=== PATIENT | male | born 1945 | race Caucasian/White ===

== ENCOUNTER 2020-04-25 21:27 | Emergency (ER) | payer MEDICARE, SELFPAY ==
--- NOTE | ~2020-04-25 | CT_ITS ---
EXAMINATION: CT abdomen pelvis w con DATE: 04/25/2020 23:48 INDICATION: Abdominal pain and burning sensation TECHNIQUE: Computed tomography (CT) of the abdomen and pelvis was performed with 100 mL Omnipaque-350 intravenous contrast. Automated exposure control and iterative reconstruction technique were employe d. The dose-length product was 1118.48 mGy-cm. COMPARISON: 06/08/2018 FINDINGS: Minimal dependent atelectasis in the lower lobes. Heart size is normal. Atherosclerotic coronary faisal ry calcifications. No pericardial or pleural effusion. There is wall thickening the distal esophagus which could be seen with esophagitis. Gallbladder, spleen, pancreas and bilateral adrenal glands are normal. 4 mm low-attenuation likely hepatic cyst along the gallbladder fossa. Bilateral low-attenuati on renal cysts the largest measuring 2.0 cm in the right kidney. 7 mm intermediate attenuation lesion at the lower pole of the left kidney which appears to have been present with similar increased atten uation on the prior noncontrast CT consistent with a proteinaceous/hemorrhagic cyst. Unchanged athero sclerotic calcification is at the bilateral renal april. No urolithiasis or hydronephrosis. There is m oderate colonic diverticulosis with a sigmoid predominance. There is no adjacent inflammatory change to suggest diverticulitis. The appendix is not visualized. No pericecal inflammatory change to sugge st acute appendicitis. No bowel obstruction. There is calcified atherosclerosis of the aorta and many of the other arteries. No significant interval change in a fusiform infrarenal aortic aneurysm measu ring 3.7 x 3.5 cm in maximal diameter. Prior IVC filter is been removed. Streak artifact in the pelvi s from a right total hip arthroplasty. Bladder is normal. No free intraperitoneal gas or fluid. No pa thologically enlarged abdominal or pelvic lymphadenopathy. Moderate lumbar and mild lower thoracic sp ondylosis. Chronic left-sided L5 pars interarticularis defect. IMPRESSION: 1. No acute intra-abdominal/pelvic process. 2. Wall thickening of the distal esophagus which could be seen with esophagitis. 3. Moderate diverticulosis. 4. 3.7 cm fusiform infrarenal aortic aneurysm. Reviewed, dictated and finalized at location A. IMPRESSION: 1. No acute intra-abdominal/pelvic process. 2. Wall thickening of the distal esophagus which could be seen with esophagitis . 3. Moderate diverticulosis. 4. 3.7 cm fusiform infrarenal aortic aneurysm.
--- NOTE | ~2020-04-25 | XR_ITS ---
EXAMINATION: XR chest 1V portable DATE: 04/25/2020 21:57 INDICATION: Dizziness and upper abdominal pain. TECHNIQUE: frontal view of the chest was obtained. COMPARISON: Chest radiograph dated 06/07/2018 and 05/27/2018 FINDINGS: Mild eventration along the right hemidiaphragm. Lungs are clear with no focal airspace opacities, pul monary edema, pleural effusion or pneumothorax. Heart size is normal. Enlargement of the central pulm onary arteries consistent with pulmonary arterial hypertension. Visualized bones and soft tissues are unremarkable. IMPRESSION: 1. No acute cardiopulmonary disease. Reviewed, dictated and finalized at location A.
[2020-04-25 21:33] VITALS: BP 165/77; PULSE 64; RESP 21; TEMP 37; O2SAT 97
--- NOTE | 2020-04-25 21:40 | ECG_ITS ---
Measurements Intervals Blain Rate: 62 P: 14 GA: 193 QRS: -21 QRSD: 98 T: 15 QT: 413 QTc: 421 Interpretive Statements SINUS RHYTHM VOLTAGE CRITERIA FOR LVH BASELINE ARTIFACT- I, II, AVR BORDERLINE ECG Electronically Signed On 04-26-2020 6:55:53 CDT by Abner Cassidy D.O.
--- NOTE | 2020-04-25 21:50 | ED.GENADULT ---
HPI - General Adult General Chief complaint: Unspecified Stated complaint: abd pain Time Seen by Provider: 04/25/20 21:30 Source: RN notes reviewed History of Present Illness HPI narrative: Patient presents emergency room from home for abdominal pain. Patient states that he was just switched to NovoLog insulin pen from his old insulin and took it for the first time this evening. Patient states he injected in his right lower abdomen and began to eat dinner. He states he then began to experience a burning sensation across his lower abdomen underneath his bellybutton as well as diaphoresis and some pain in his lower back. He states that this time diaphoresis better he still has the burning across his lower abdomen. He denies overlyin rash. He denies fevers, chest pain shortness of breath swelling of lips or tongue nausea vomiting diarrhea or any other symptoms Related Data Home Medications Medication Instructions Recorded Confirmed carboxymethylcellulose sodium 0.5 1 drop EACH EYE BID 08/22/19 % eye drops in a dropperette ferrous sulfate 325 mg (65 mg 325 mg PO BID 08/22/19 iron) tablet gabapentin 300 mg capsule 300 mg PO DAILY 08/22/19 hydroxyzine HCl 10 mg tablet 10 mg PO .4 TIMES A DAY PRN tablet 08/22/19 omega-3 fatty acids 1,000 mg 1,000 mg PO DAILY 08/22/19 capsule rosuvastatin 40 mg tablet 40 mg PO DAILY 08/22/19 vitamin B complex 1 tablet PO DAILY 08/22/19 fluocinonide 0.05 % topical cream 1 applic TOPICAL BID 12/26/19 alogliptin 6.25 mg tablet See Rx Instructions PO DAILY 03/22/20 pantoprazole 40 mg tablet,delayed 40 mg PO QAM 03/22/20 release insulin glargine 100 unit/mL 40 unit SUB-Q DAILY ml 03/26/20 subcutaneous solution Allergies Allergy/AdvReac Type Severity Reaction Status Date / Time oxycodone Allergy Unknown Vomiting Verified 04/25/20 21:36 Review of Systems Review of Systems: Narrative: Gen.: Denies fevers or chills, reports diaphoresis Eyes: Denies eye pain or visual change ENT: Denies congestion Respiratory: Denies shortness of breath or cough CV: Denies chest pain or palpitations GI: Reports abdominal pain denies nausea vomiting or diarrhea denies burning, urgency, frequency or hematuria Musculoskeletal: Denies back pain or muscle pain Neuro: Denies numbness, tingling, weakness or focal weakness Skin: Denies rash Endocrine: Reports diabetes mellitus Except as documented, all other systems reviewed and negative [facility] Past Medical History Medical History (Updated 04/26/20 @ 02:42 by Eugene Tariq DO) Anemia in chronic kidney disease Essential hypertension PE (pulmonary thromboembolism) Type 2 diabetes mellitus with diabetic peripheral angiopathy without gangrene Social History Social History Smoking status: Never smoker Alcohol intake: never Exam Narrative: Exam Narrative: APPEARANCE: No acute distress, nontoxic, resting in bed EYES: EOMI HEENT: Normocephalic, atraumatic, OMM RESPIRATORY: No respiratory distress Clear to auscultation bilaterally with no rhonchi wheezing or rales. CARDIOVASCULAR: Regular rate and rhythm without murmurs rubs or gallops. ABDOMINAL: Soft, nontender, nondistended, no rebound or guarding MUSCULOSKELETAl: Moves all extremities. No clubbing, cyanosis or edema. NEURO: Awake and alert. Following commands, speech normal, no focal deficits SKIN:: Warm, dry. No rashes lesions or abrasions PSYCHIATRIC: Normal affect/mood, Course Course Emergency Course: Patient notes minimal change with Tylenol and GI cocktail CT obtained still no rash over abdomen Bladder scan obtained shows no urinary retention questionable minimal UTI will treat Patient states that they are feeling much better at this time. States abdominal pain has improved repeat abdominal exam shows the patient's abdomen to be soft with no surgical abdomen present discussed with patient results of workup and diagnosis.
[2020-04-25 21:55] LABS: Basophils Percent Auto 0.2 % (0.2-1.2); Eosinophils Absolute Auto 0.2 K/mm3 (0-0.3); Hematocrit 37.1 % (42.0-52.0); Hemoglobin 12.3 g/dL (14.0-18.0); Immature Granulocyte Absolute 0.04 K/mm3 (0.00-0.031); Immature Granulocyte Percent A 0.4 % (0-0.5); Lymphocytes Absolute Auto 2.12 K/mm3 (0.9-3.2); Lymphocytes Percent Auto 21.2 % (18.3-44.2); Mean Corpuscular HGB Conc 33.2 g/dl (32-36); Mean Corpuscular Hemoglobin 28.9 pg (26-34); Mean Corpuscular Volume 87.3 fl (80-100); Monocytes Absolute Auto 0.9 K/mm3 (0.1-0.6); Monocytes Percent Auto 8.5 % (2.6-8.5); Neutrophils Absolute Auto 6.8 K/mm3 (1.3-6.7); Neutrophils Percent Auto 67.7 % (45.5-73.1); Platelet Count Result 186 k/mm3 (150-375); Red Blood Count 4.25 M/mm3 (4.6-6.20); Red Cell Distribution Width 14.4 % (11.5-14.5)
[2020-04-25 22:05] LABS: Prothrombin Time 13.1 Seconds (11.1-14.7)
[2020-04-25 22:06] LABS: Partial Thromboplastin Time 36.5 SECONDS (22.3-36.8)
[2020-04-25 22:07] LABS: Alanine Aminotransferase 20 U/L (4-50); Albumin Level 4.2 g/dL (3.5-5.1); Alkaline Phosphatase 77 U/L (38-126); Anion Gap 9 mmol/L (8-16); Aspartate Amino Transferase 22 U/L (17-59); Bilirubin,Total 0.4 mg/dL (0.2-1.3); Blood Urea Nitrogen 28 mg/dL (9-20); Calcium 8.6 mg/dL (8.4-10.2); Carbon Dioxide 23 mmol/L (22-30); Chloride 105 mmol/L (98-107); Estimated CRCL calculation 40 ml/min; Estimated Glomerular Filt Rate 42; Glucose 229 mg/dL (75-110); Lipase 82 U/L (23-300); Potassium 4.4 mmol/L (3.4-5.0); Sodium 137 mmol/L (137-145)
[2020-04-25 22:17] LABS: Add Urine Microscopic? YES; Appearance Urine Clear (Clear); Bilirubin Urine Negative (Negative); Blood Urine Negative (Negative); Color Urine Yellow (Yellow); Glucose Urine UA 2+ mg/dL (Negative); Ketones Urine Negative (Negative); Leukocyte Esterase Ur Trace LEU/UL (Negative); Mucus Urine Rare /lpf; Nitrate Urine Negative (Negative); Protein Urine Negative (Negative); RBC Urine 0-2 /hpf (0-2); Specific Grav Ur 1.019 (1.001-1.035); Squamous Epithelial Cell Urine Occasional /hpf (Few); Urobilinogen Urine Negative mg/dL (<2.0)
[2020-04-25 22:19] LABS: Troponin I < 0.012 ng/mL (0.000-0.034)
[2020-04-26 00:42] VITALS: BP 178/84; PULSE 65; RESP 16; O2SAT 99
[2020-04-26] MEDS: MORPHINE SULFATE 2 MG/ML INJ IV PUSH (01:26)
[2020-04-26 01:45] LABS: Lactic Acid Reflex 1.1 mmol/L (0.7-2.1)
[2020-04-26 01:57] LABS: Troponin I < 0.012 ng/mL (0.000-0.034)
[2020-04-26 02:37] VITALS: BP 167/84; PULSE 65; RESP 20; O2SAT 98
[2020-04-26] MEDS: CEPHALEXIN 500 MG CAPSULE PO (02:55)
== END 2020-04-26 02:56 | disposition home or self-care (01) ==
PROVIDERS: Emergency Provider Emergency Medicine; PCP Internal Medicine
DX: R10.31 Right lower quadrant pain (principal); N39.0 Urinary tract infection, site not specified; E11.22 Type 2 diabetes mellitus with diabetic chronic kidney disease; I12.9 Hypertensive chronic kidney disease with stage 1 through stage 4 chronic kidney disease, or unspecified chronic kidney disease; N18.9 Chronic kidney disease, unspecified; E11.51 Type 2 diabetes mellitus with diabetic peripheral angiopathy without gangrene; D63.1 Anemia in chronic kidney disease; Z79.4 Long term (current) use of insulin; Z86.711 Personal history of pulmonary embolism; R94.31 Abnormal electrocardiogram [ECG] [EKG]
CPT/HCPCS: 36415; 71045; 74177; 80053; 81001; 83605; 83690; 84484; 85025; 85610; 85730; 87086; 87088; 93005; 96365; 96375; 99284; A9270; J0131; J2270; Q9967

== ENCOUNTER 2020-04-27 07:12 | Outpatient (NON) | payer MEDICARE, SELFPAY ==
[2020-04-28 00:04] LABS: SARS-CoV-2 RNA PCR Negative
== END 2020-04-27 07:13 ==
PROVIDERS: PCP Internal Medicine; Visit Provider Internal Medicine
DX: Z20.828 Contact with and (suspected) exposure to other viral communicable diseases (principal); R68.89 Other general symptoms and signs
CPT/HCPCS: 87635; C9803; U0003

== ENCOUNTER 2020-05-02 10:36 | Outpatient (CLI) | payer MEDICARE, SELFPAY ==
--- NOTE | ~2020-05-02 | XR_ITS ---
EXAMINATION: XR chest 2V DATE: 05/02/2020 10:53 INDICATION: Shortness of breath. TECHNIQUE: Frontal and lateral views of the chest were obtained. COMPARISON: Chest single view 04/25/2020, CT abdomen and pelvis 04/25/2020 FINDINGS: There is eventration of anterior right hemidiaphragm. There is mild atelectasis at right ming ng base. No pneumonia, pleural effusion, or pneumothorax. The heart size is normal. IMPRESSION: 1. Mild atelectasis at right lung base. Reviewed, dictated and finalized at location B.
[2020-05-02 11:33] LABS: Basophils Percent Auto 0.3 % (0.2-1.2); Eosinophils Absolute Auto 0.1 K/mm3 (0-0.3); Eosinophils Percent Auto 0.8 % (0-4.4); Hematocrit 36.3 % (42.0-52.0); Hemoglobin 12.3 g/dL (14.0-18.0); Immature Granulocyte Absolute 0.44 K/mm3 (0.00-0.031); Immature Granulocyte Percent A 3.3 % (0-0.5); Lymphocytes Absolute Auto 1.55 K/mm3 (0.9-3.2); Lymphocytes Percent Auto 11.7 % (18.3-44.2); Mean Corpuscular HGB Conc 33.9 g/dl (32-36); Mean Corpuscular Hemoglobin 28.7 pg (26-34); Mean Corpuscular Volume 84.6 fl (80-100); Mean Platelet Volume 11.1 fl (7.4-10.4); Monocytes Absolute Auto 1.3 K/mm3 (0.1-0.6); Monocytes Percent Auto 9.5 % (2.6-8.5); Neutrophils Absolute Auto 9.8 K/mm3 (1.3-6.7); Neutrophils Percent Auto 74.4 % (45.5-73.1); Platelet Count Result 188 k/mm3 (150-375); Red Blood Count 4.29 M/mm3 (4.6-6.20); Red Cell Distribution Width 15.2 % (11.5-14.5); White Blood Count 13.2 K/mm3 (4.5-10.0)
[2020-05-02 11:37] LABS: Add Urine Microscopic? YES; Appearance Urine Clear (Clear); Bilirubin Urine Negative (Negative); Blood Urine 2+ (Negative); Color Urine Yellow (Yellow); Glucose Urine UA 1+ mg/dL (Negative); Ketones Urine Negative (Negative); Leukocyte Esterase Ur 1+ LEU/UL (NEGATIVE); Nitrate Urine Negative (Negative); Protein Urine 2+ mg/dL (Negative); Specific Grav Ur 1.027 (1.001-1.035); Squamous Epithelial Cell Urine Few /hpf (Few); WBC Urine 21-30 /hpf (0-3)
[2020-05-02 11:45] LABS: Alanine Aminotransferase 198 U/L (4-50); Alkaline Phosphatase 350 U/L (38-126); Anion Gap 10 mmol/L (8-16); Aspartate Amino Transferase 102 U/L (17-59); Blood Urea Nitrogen 32 mg/dL (9-20); Calcium 9.1 mg/dL (8.4-10.2); Carbon Dioxide 24 mmol/L (22-30); Chloride 101 mmol/L (98-107); Estimated Glomerular Filt Rate 33; Glucose 211 mg/dL (75-110); Potassium 4.1 mmol/L (3.4-5.0); Sodium 135 mmol/L (137-145)
== END 2020-05-02 10:37 | disposition home or self-care (01) ==
PROVIDERS: PCP Internal Medicine; Visit Provider Internal Medicine
DX: R53.1 Weakness (principal); R06.02 Shortness of breath; R91.8 Other nonspecific abnormal finding of lung field
CPT/HCPCS: 36415; 71046; 80053; 81001; 85025

== ENCOUNTER 2020-05-02 14:19 | Inpatient (IN) | payer MEDICARE, SELFPAY ==
--- NOTE | ~2020-05-02 | CT_ITS ---
EXAMINATION: CT guide absc cath placement DATE: 05/03/2020 16:43 INDICATION: Liver abscess TECHNIQUE: The procedure including the risks and benefits was discussed with the patient. Risks discu ssed included bleeding and infection. The patient understood the risks and benefits and agreed to pro ceed. The patient was confirmed to be receiving appropriate antibiotic coverage. The skin overlying the right upper quadrant of the abdomen was prepped and draped in usual sterile fashion. Anesthetic was administered with 1% lidocaine subcutaneously. Patient also was given 50 mcg fentanyl and 1 mg Ve rsed for conscious sedation. Attention was first turned to the hepatic abscess in segment IVb of the liver. 18-gauge needle was advanced into the fluid pocket utilizing CT guidance. The inner stylette w as removed and there was spontaneous reflux of serosanguineous fluid. A wire was advanced through the needle with position confirmed by CT. Utilizing Seldinger technique the tract was serially dilated t o 8 Uzbek and an 8.5 Uzbek catheter was inserted and the loop formed with positioning confirmed by CT. The wire was removed. At this point attempt was made to aspirate fluid from the collection howeve r this was unsuccessful likely due to interval decompression of the abscess cavity occurring during t he tract dilation and subsequent imaging with significant amount of fluid noted soaking the drape at the outlet of the catheter. The catheter was then attached to suction drainage. Attention was then tu rned to the gallbladder. Additional anesthetic was administered with 1% lidocaine subcutaneously. An 18-gauge needle was advanced into the call bladder via transhepatic approach utilizing CT guidance. A gain utilizing Seldinger technique the wire was advanced through the needle, the tract serially dilat ed to 8 Uzbek and an 8.5 Uzbek drainage catheter was placed. The loop was formed with positioning c onfirmed by CT. 10 mL of viscous turbid yellow fluid was aspirated and sent to the lab for Gram stain and cultures. Both catheters were stitched to the skin with suture, antibiotic ointment and sterile dressings applied. There were no immediate complications. The dose-length product was 397.45 mGy-cm. FINDINGS: CT images demonstrate the more medial drainage catheter within the hepatic abscess in segme nt IVb of the liver and the more lateral drainage catheter within the gallbladder. 10 mL fluid was as pirated from the gallbladder for testing. IMPRESSION: 1. Successful CT-guided left hepatic lobe abscess drainage catheter placement. 2. Successful CT-guided cholecystostomy tube placement. 3. 10 mL fluid from the gallbladder was sent for aerobic, anaerobic and fungal cultures. 3. The catheter will be managed by Dr. Arizmendi. A catheter cholangiogram may be performed not less than 48 hours after tube placement if clinically indicated to assess cystic duct patency. If cholecystect andrés is not eventually performed and the infectious episode has resolved, the tube may be removed over a guidewire, preferably not less than 3 weeks after placement to allow time for a mature catheter tr act to form to prevent bile leakage and peritonitis. Reviewed, dictated and finalized at location A. IMPRESSION: 1. Successful CT-guided left hepatic lobe abscess drainage catheter placement. 2. Successful CT-guided cholecystostomy tube placement. 3. 10 mL fluid from the gallbladder was sent for aerobic, anaerobic and fungal cultures. 3. The catheter will be managed by Dr. Arizmendi. A catheter cholangiogram may be p erformed not less than 48 hours after tube placement if clinically indicated to assess cystic duct patency. If cholecystectomy is not eventually performed and the infectious episode has resolved, the tube may be removed over
--- NOTE | ~2020-05-02 | CT_ITS ---
EXAMINATION: CT abdomen pelvis wo con DATE: 05/07/2020 12:15 INDICATION: Liver abscess TECHNIQUE: Computed tomography (CT) of the abdomen and pelvis was performed without intravenous contr ast. Automated exposure control and iterative reconstruction technique were employed. The dose-length product was 863.87 mGy-cm. COMPARISON: CT dated 05/02/2020 FINDINGS: Tiny right pleural effusion. Dependent atelectasis in the bilateral lower lobes. Small calcified righ t lower lobe nodule consistent with old granulomatous disease. Heart size is normal. Atherosclerotic coronary artery calcifications and likely coronary artery stenting. No pericardial effusion. Persiste nt wall thickening in the distal esophagus suggesting esophagitis. Percutaneous cholecystostomy tube with loop formed within the decompressed gallbladder. There is a se cond percutaneous hepatic abscess drain extending into a gas and fluid-filled abscess cavity which is decreased in size from 4.0 x 3.6 x 3.2 cm to currently measuring 3.2 x 2.8 x 2.4 cm. Spleen, pancrea s and bilateral adrenal glands are normal. Bilateral renal cysts, the largest on the right measuring 1.8 cm. There is calcified atherosclerosis of the aorta and many of the other arteries including athe rosclerotic calcifications at the bilateral renal april. Fusiform infrarenal abdominal aortic aneurysm measuring up to 3.7 cm in maximal diameter. There is prominent sigmoid and descending colon predomin ant diverticulosis without adjacent inflammatory change to suggest diverticulitis. Small bowel is nor mal. The appendix is not visualized. No pericecal inflammatory change to suggest acute appendicitis. Bladder is normal. Streak artifact in the pelvis related to a right total hip arthroplasty. No free i ntraperitoneal gas or fluid. No pathologically enlarged abdominal or pelvic lymphadenopathy. Moderate lumbar spondylosis. IMPRESSION: 1. Decrease in size of a now 3.2 x 2.8 x 2.4 similar gas and fluid-filled abscess in the left hepatic lobe post percutaneous abscess drain placement. 2. Percutaneous cholecystostomy tube in expected position within the decompressed gallbladder. 3. Tiny right pleural effusion. 4. Mild esophageal wall thickening consistent with esophagitis. 5. 3.7 cm infrarenal abdominal aortic aneurysm. Reviewed, dictated and finalized at location B. IMPRESSION: 1. Decrease in size of a now 3.2 x 2.8 x 2.4 similar gas and fluid-filled absce ss in the left hepatic lobe post percutaneous abscess drain placement. 2. Percutaneous cholecystostomy tube in expected position within the decompress ed gallbladder. 3. Tiny right pleural effusion. 4. Mild esophageal wall thickening consistent with esophagitis. 5. 3.7 cm infrarenal abdominal aortic aneurysm.
--- NOTE | ~2020-05-02 | US_ITS ---
EXAMINATION: US right upper quadrant DATE: 05/02/2020 16:01 INDICATION: Elevated liver enzymes and elevated alkaline phosphatase. TECHNIQUE: Multiple grayscale and Doppler ultrasound images of the abdomen were obtained. COMPARISON: CT dated 04/25/2020 FINDINGS: The pancreatic head and body are normal in appearance. The pancreatic tail is not visualized. The vi sualized proximal inferior vena cava is normal. Proximal to mid abdominal aorta is normal in caliber. Liver has normal echogenicity and contour, with a smooth surface. There is a 3.4 x 3.2 x 3.1 cm comp liliana cystic lesion in segment IVb of the liver which is without correlate on the recent contrast enhan chidi CT from one week prior to raise concern for hepatic abscess. No intrahepatic biliary duct dilatio n suspected. Portal venous flow was seen in the hepatopetal, normal direction and has normal Doppler waveform. 8 mm nonshadowing echogenic density at the neck of the gallbladder which when correlated wi th prior CT most likely represents a fold. The gallbladder otherwise normal in appearance There is no cholelithiasis. The common bile duct measures 6 mm, which is normal. Sonographic Hernandez sign was rep orted as negative by the milking machine operator. IMPRESSION: 1. New 3.4 cm complex cystic lesion in segment IVb of the liver which is new since the contrast enhan chidi CT one week prior which raises concern for hepatic abscess. Consider repeat contrast-enhanced CT. Line 2. 8 mm echogenic density at the neck of the gallbladder and favor a fold in the wall over polyp. Reviewed, dictated and finalized at location A. IMPRESSION: 1. New 3.4 cm complex cystic lesion in segment IVb of the liver which is new si nce the contrast enhanced CT one week prior which raises concern for hepatic ab scess. Consider repeat contrast-enhanced CT. Line 2. 8 mm echogenic density at the neck of the gallbladder and favor a fold in th e wall over polyp.
--- NOTE | ~2020-05-02 | CT_ITS ---
EXAMINATION: CT abdomen pelvis w con DATE: 05/02/2020 17:57 INDICATION: Elevated liver enzymes. Right-sided abdomen pain. TECHNIQUE: Computed tomography (CT) of the abdomen and pelvis was performed with 100 cc Omnipaque 350 intravenous contrast. The dose-length product was 1081.89 mGy-cm. Automated exposure control and ite rative reconstruction technique were employed. COMPARISON: CT dated 04/25/2020. FINDINGS: Lung bases are unremarkable. Heart size normal. No significant pleural or pericardial effus ion. There is thickening of the distal esophagus, compatible with esophagitis. Heart size is normal. Stable fusiform 3.7 cm infrarenal abdominal aortic aneurysm. Interval development of irregular shaped fluid collection left hepatic lobe measuring 4 x 3.6 x 3 cm, new since prior study. There is a secon d small cystic structure in the right hepatic lobe just lateral to the gallbladder, likely a cyst. Th e spleen, pancreas, adrenal glands are unremarkable. There are several bilateral renal cysts. There i s a right total hip arthroplasty. Moderate lumbar spondylosis. IMPRESSION: 1. New irregular shaped fluid collection of the left hepatic lobe just medial and superior to the gal lbladder measuring 4 x 3.6 x 3 cm, likely hepatic abscess. 2: Abnormal thickening of the distal esophagus, compatible with esophagitis. 3: Stable fusiform 3.7 cm infrarenal abdominal aortic aneurysm. Reviewed, dictated and finalized at location A. IMPRESSION: 1. New irregular shaped fluid collection of the left hepatic lobe just medial a nd superior to the gallbladder measuring 4 x 3.6 x 3 cm, likely hepatic abscess . 2: Abnormal thickening of the distal esophagus, compatible with esophagitis. 3: Stable fusiform 3.7 cm infrarenal abdominal aortic aneurysm.
--- NOTE | ~2020-05-02 | CT_ITS ---
EXAMINATION: CT brain wo con DATE: 05/02/2020 15:02 INDICATION: Headache. TECHNIQUE: Computed tomography (CT) of the head was performed without intravenous contrast. The mA wa s adjusted according to patient size. Iterative reconstruction technique was employed. The dose-lengt h product was 681.00 mGy-cm. COMPARISON: None FINDINGS: There is no intracranial hemorrhage, acute infarction, or abnormal intracranial mass lesion . There is an old lacunar infarct in the right basal ganglia. The ventricles are normal in size. Ther e is mild mucosal thickening in the paranasal sinuses. There are likely changes of ocular lens replac ement surgeries. There is a trace left mastoid effusion. IMPRESSION: 1. Old lacunar infarct in the right basal ganglia. Reviewed, dictated and finalized at location B.
--- NOTE | ~2020-05-02 | US_ITS ---
EXAMINATION: US percutaneous drain w cath DATE: 05/03/2020 14:18 INDICATION: Liver abscess TECHNIQUE: Multiple grayscale and Doppler ultrasound images of the liver were obtained for planned ab scess drainage catheter placement. The procedure including the risks and benefits was discussed with the patient. Risks discussed included bleeding including hemorrhage and infection. Oral and written c onsent were obtained. The patient was confirmed to be receiving appropriate antibiotic coverage. The skin overlying the liver was prepped and draped in usual sterile fashion. Anesthetic was administer ed with 1% lidocaine subcutaneously. An 8.5 Fr catheter was inserted by trocar technique into the alford bcutaneous tissues of the overlying anterior abdominal wall. Prior to transgressing the peritoneum th e visualization of the catheter deemed suboptimal primarily due to effects of the subcostal margin wh ich is in close proximity to the path of the catheter. Furthermore the ability of the patient to main tain adequate breath holds to bring the abscess into an acceptable position for drainage catheter khai cement was deemed inadequate. Therefore the procedure was halted and the drainage catheter and trocar were removed. There was no hemorrhage post removal of the catheter and a sterile bandage was applied . There were no immediate complications. FINDINGS/IMPRESSION: 3.9 x 3.3 x 3.2 cm hepatic abscess. Planned ultrasound-guided drainage catheter placement was cancele d prior to transgressing the peritoneum or liver capsule and it was elected to proceed with planned c atheter placement utilizing CT guidance. Reviewed, dictated and finalized at location A.
[2020-05-02 14:37] VITALS: BP 133/63; PULSE 95; RESP 18; TEMP 37.1; O2SAT 97
--- NOTE | 2020-05-02 14:44 | ED.GENADULT ---
HPI - General Adult General Chief complaint: Recheck/Abnormal Lab/Rx Stated complaint: donovan/liver test problems Time Seen by Provider: 05/02/20 14:33 Source: patient History of Present Illness HPI narrative: 75-year-old male presents to emergency department for multiple complaints. Patient reports intermittent, right-sided abdominal pain for the past few days. He has not taken anything for the abdominal pain so far. Additionally, he states that he has not been feeling well for the past few weeks. He has had a headache for the past 2 weeks. States he has never had a headache like this in the past before. No chest pain or shortness of breath. No fever or chills. No nausea or vomiting. Patient states he had a bowel movement today, which was normal. No urinary symptoms. Related Data Home Medications Medication Instructions Recorded Confirmed carboxymethylcellulose sodium 0.5 1 drop EACH EYE BID 08/22/19 05/02/20 % eye drops in a dropperette ferrous sulfate 325 mg (65 mg 325 mg PO DAILY 08/22/19 05/02/20 iron) tablet gabapentin 300 mg capsule 300 mg PO DAILY 08/22/19 05/02/20 hydroxyzine HCl 10 mg tablet 10 mg PO QID PRN tablet 08/22/19 05/02/20 omega-3 fatty acids 1,000 mg 1,000 mg PO DAILY 08/22/19 05/02/20 capsule rosuvastatin 40 mg tablet 40 mg PO DAILY 08/22/19 05/02/20 vitamin B complex 1 tablet PO DAILY 08/22/19 05/02/20 alogliptin 6.25 mg tablet See Rx Instructions PO DAILY 03/22/20 05/02/20 insulin glargine 100 unit/mL 40 unit SUB-Q DAILY ml 03/26/20 05/02/20 subcutaneous solution Allergies Allergy/AdvReac Type Severity Reaction Status Date / Time oxycodone Allergy Unknown Vomiting Verified 05/02/20 14:42 Review of Systems Review of Systems: Narrative: CONSTITUTIONAL: Denies fever, chills, or sweats. EYES: Denies visual changes, redness, or discharge. ENT: Denies rhinorrhea, congestion, sore throat, or otalgia. CARDIOVASCULAR: Denies chest pain, palpitations, or edema. RESPIRATORY: Denies cough or dyspnea. GASTROINTESTINAL: Reports right-sided abdominal pain. No nausea or vomiting. GENITOURINARY: Denies dysuria or hematuria. SKIN: Denies rash or itching. MUSCULOSKELETAL: Denies back pain, joint pain, or myalgia. NEUROLOGIC: Reports headache, no numbness, no dizziness, no weakness. PSYCHIATRIC: Denies anxiety or depression. All systems reviewed & are unremarkable except as noted in HPI and below (ROS) PMFSH Past Medical History Medical History Anemia in chronic kidney disease Essential hypertension PE (pulmonary thromboembolism) Type 2 diabetes mellitus with diabetic peripheral angiopathy without gangrene Social History Social History Smoking status: Never smoker Second hand tobacco smoke exposure: No Alcohol intake: never Substance use: never Gender identity (if verbalized by the patient): Male Spiritual care concerns: No Exam Narrative: Exam Narrative: GENERAL: Well-appearing, well-nourished, and in no acute distress. HEAD: Normocephalic, atraumatic. EYES: PERRLA and EOMI. ENT: Nares clear, no rhinorrhea or epistaxis. Mucous membranes moist. NECK: Supple. CHEST: Clear to auscultation. No respiratory distress. HEART: Regular rate and rhythm. No murmur heard. Normal peripheral pulses. ABDOMEN: Soft, nontender, nondistended, normal active bowel sounds. EXTREMITIES: Normal range of motion. No edema. SKIN: Warm, dry, no rash. NEURO: No focal deficits. Alert and oriented x3. PSYCH: Normal mood and affect. Course Reevaluation(s) Reevaluation #1: [id number] - re-evaluated pt, DONOVAN improved 1819 - discussed case with NANDINI Hernandez for Dr. Hyde, accepts admission 183 - discussed case with Dr. Arizmendi, accepts consult Vital Signs Vital signs: Vital Signs Temperature 37.1 C 05/02/20 14:37 Pulse Rate 95 05/02/20 14:37 Respiratory Rate 18 05/02/20 14:37 Blood Pressure
[2020-05-02 15:02] LABS: Add Urine Microscopic? YES; Appearance Urine Clear (Clear); Bilirubin Urine Negative (Negative); Blood Urine 2+ (Negative); Color Urine Yellow (Yellow); Glucose Urine UA 1+ mg/dL (Negative); Ketones Urine Negative (Negative); Leukocyte Esterase Ur 2+ LEU/UL (Negative); Mucus Urine Rare /lpf; Nitrate Urine Negative (Negative); Protein Urine 2+ mg/dL (Negative); Specific Grav Ur 1.024 (1.001-1.035); Squamous Epithelial Cell Urine Occasional /hpf (Few); WBC Urine 21-30 /hpf
[2020-05-02 15:08] LABS: Acetaminophen < 10 ug/mL (10-30); Ethanol < 10 mg/dL (<10); Lipase 106 U/L (23-300); Salicylate < 1.0 mg/dL (2-20)
[2020-05-02] MEDS: PROCHLORPERAZINE EDISYLATE 10 MG/2 ML VIAL 5 MG IV PUSH (15:22)
[2020-05-02] MEDS: KETOROLAC 15 MG/ML VIAL (*BKC) IV PUSH (15:22)
[2020-05-02 16:07] VITALS: BP 124/75; PULSE 77; RESP 18; O2SAT 96
[2020-05-02 17:48] LABS: Estimated CRCL calculation 32 ml/min; Estimated Glomerular Filt Rate 33
[2020-05-02 18:04] LABS: Glucose Point of Care 200 (65-105)
[2020-05-02 19:04] VITALS: BP 129/77; PULSE 76; RESP 26; O2SAT 96
[2020-05-02 20:17] VITALS: BP 118/66; PULSE 74; RESP 22; O2SAT 97
[2020-05-02 20:41] VITALS: BP 133/87; PULSE 96; RESP 20; TEMP 37.1; O2SAT 100; BMI 28.8
[2020-05-02 20:51] VITALS: BP 131/72; PULSE 83; RESP 16; TEMP 36.7; O2SAT 97
--- NOTE | 2020-05-02 21:40 | ADMGEN ---
This patient, Chandan Shetty, was admitted to Medical Room 341-01. Patient/family oriented to hospital policies and general routines including ID bracelet, bed and alarms, visiting hours, pain management, procedures, bathroom and other care routines, personal items, smoking policy, room service/diet, and visiting hours. Valuables list has been completed. Information on how to activate the Rapid Response Team has been discussed. Patient/Family are encouraged to report perceived risks to care and to ask questions if they do not understand what they are told or what they should do.
[2020-05-02 22:01] LABS: Glucose Point of Care 155 (65-105)
--- NOTE | 2020-05-02 23:05 | PC.NURSE ---
During admission pt stated nursing staff should be able to pull his information from prior visits and what he had told ED staff earlier, pt stopped answering admission questions, and rolled on his side away from staff during questioning. Admission history was recalled from prior visits following pt refusal to talk.
[2020-05-03] VITALS (18 sets, daily range): BP systolic 110–139; BP diastolic 50–78; PULSE 70–109; RESP 16–26; TEMP 37.1–37.2; O2SAT 94–100
--- NOTE | 2020-05-03 00:52 | PM.IMHP ---
H&P: HPI History of Present Illness Date/Time: 05/03/20 00:52 Chief complaint: Hepatic Abscess Narrative: Chandan Shetty is a 75 year old male who was complaining of having abdominal pain on and off for couple weeks. It was intermittent to his right upper quadrant. He also had a headache with this. He was also nauseated. He denies having had a recent injury. She has had no fever chills. CT of the abdomen pelvis live is normal other she fluid collection a left hepatic lobe just medial and superior to the gallbladder measuring 4 x 3.6 Melissa was likely hepatic abscess. Abnormal like his drug of the distal esophagitis. Stable fusiform 3.7 cm and infrarenal abdominal aortic aneurysm. He was started on Zosyn surgery is consulted. In order has been placed for Interventional Radiology. Patient was given Toradol and Compazine in the emergency room. I spent approximately 45 minutes with the patient. Date of service is 05/02/2020 Review of Systems Review of Systems: All systems reviewed & are unremarkable except as noted in HPI and below Constitutional: Constitutional: Reports as per HPI and Reports no additional constitutional complaints Eyes: Eyes: Reports as per HPI and Reports no additional eye complaints ENT: Reports system reviewed and no additional complaints, except as documented and Reports Normal hearing present Cardiovascular: Cardiovascular: Reports no additional cardiovascular complaints Respiratory: Respiratory: Reports no additional respiratory complaints and Reports no additional respiratory complaints Gastrointestinal: Gastrointestinal: Reports as per HPI and Reports no additional gastrointestinal complaints Musculoskeletal: Musculoskeletal: Reports no additional musculoskeletal complaints Integumentary/Breasts: Skin/Breast: Reports system reviewed and no additional complaints, except as docu and Reports as per HPI Neurologic: Reports system reviewed and no additional complaints, except as documented, Reports as per HPI and Reports Normal hearing present Psychiatric: Psychiatric: Reports no additional psychiatric complaints and Reports as per HPI Endocrine: Endocrine: Reports no additional endocrine complaints Hematologic/Lymphatic: Hematologic/Lymphatic: Reports no additional hematologic/lymphatic complaints Allergic/Immunologic: Allergic/Immunologic: Reports no additional allergic/immunologic complaints [facility] Past Medical History Medical History (Updated 05/03/20 @ 01:18 by Mary Duarte NP) Amputation toe 2nd toe on the right Anemia in chronic kidney disease Chronic anemia Dialysis patient Temporary DM2 (diabetes mellitus, type 2) DVT (deep venous thrombosis) Essential hypertension Generalized anxiety disorder PE (pulmonary thromboembolism) Pulmonary emboli Bilaterally S/P ORIF (open reduction internal fixation) fracture Right hip Type 2 diabetes mellitus with diabetic peripheral angiopathy without gangrene Surgical History Surgical History (Updated 05/03/20 @ 01:08 by Mary Duarte NP) H/O cataract extraction Bilaterally History of appendectomy History of tonsillectomy S/P IVC filter Which was removed due to complications and infection. Family History Family History (Updated 05/03/20 @ 01:09 by Mary Duarte NP) Mother Natural with unknown cause Father Natural with unknown cause Social History Social History (Updated 05/03/20 @ 01:11 by Mary Duarte NP) Social History: The patient lives with his . He has 2 step children. He retired from the [employer]. He served in [employer]. He has not had any biological children. 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 He is a full code. Lifelong nonsmoker. Does not use any alcohol or drugs. Smoking status: Never smoker Second hand tobacco smoke exposure: No Alcohol intake: never Substance use: never Gender identity (if verbalized by the patient): Male Spiritual car
[2020-05-03 02:34] LABS: Hemoglobin A1C 8.1 % (<5.7)
[2020-05-03 08:07] LABS: Glucose Point of Care 182 (65-105)
[2020-05-03 08:16] LABS: Mean Platelet Volume 10.8 fl (7.4-10.4); Platelet Count Result 212 k/mm3 (150-375)
[2020-05-03 08:25] LABS: INR 1.1; Prothrombin Time 13.4 Seconds (11.1-14.7)
[2020-05-03 08:26] LABS: Partial Thromboplastin Time 33.4 SECONDS (22.3-36.8)
[2020-05-03 08:27] LABS: Potassium 4.1 mmol/L (3.4-5.0)
[2020-05-03 08:35] LABS: Alanine Aminotransferase 132 U/L (4-50); Albumin Level 3.4 g/dL (3.5-5.1); Alkaline Phosphatase 267 U/L (38-126); Anion Gap 10 mmol/L (8-16); Aspartate Amino Transferase 51 U/L (17-59); Bilirubin,Total 1.3 mg/dL (0.2-1.3); Blood Urea Nitrogen 33 mg/dL (9-20); Calcium 8.4 mg/dL (8.4-10.2); Carbon Dioxide 19 mmol/L (22-30); Chloride 104 mmol/L (98-107); Estimated CRCL calculation 30 ml/min; Estimated Glomerular Filt Rate 31; Glucose 193 mg/dL (75-110); Sodium 133 mmol/L (137-145)
--- NOTE | 2020-05-03 08:50 | PM.CNGS ---
Assessment and Plan Assessment and plan (1) Abscess of liver: Code(s): K75.0 - Abscess of liver Status: Acute Assessment and Plan: pt setup for IR perc drainage today, cont abx, await cx results (2) DM2 (diabetes mellitus, type 2): Code(s): E11.9 - Type 2 diabetes mellitus without complications Status: Chronic Assessment and Plan: mgmt per primary team (3) Essential hypertension: Code(s): I10 - Essential (primary) hypertension Status: Chronic Assessment and Plan: mgmt per primary team (4) Hyperlipidemia, unspecified: Code(s): E78.5 - Hyperlipidemia, unspecified Status: Acute Assessment and Plan: mgmt per primary team History of Present Illness Consult details Consult date: 05/03/20 Reason for consult: abdominal pain Narrative: Pt is a 75 y/o M presenting to ED c/o intermittent RUQ abd pain over last 6 wks. Pt reports episodes are becoming more severe and frequent. Pt reports assoc headache, poor appetite, and nausea. Pt also describes weakness and fatigue. Pt denies any known fevers. Pt denies previous episodes. Review of Systems Constitutional: Constitutional: Reports body ache(s), Denies chills, Reports fatigue, Reports lethargy, Denies night sweats and Reports weakness Eyes: Eyes: Reports no additional eye complaints ENT: Reports Normal hearing present and Denies dysphagia Cardiovascular: Cardiovascular: Denies chest pain and Denies palpitations Respiratory: Respiratory: Denies cough and Denies dyspnea Gastrointestinal: Gastrointestinal: Reports abdominal pain, Reports bloating, Denies constipation, Reports heartburn, Denies diarrhea, Reports nausea and Denies vomiting Genitourinary: Genitourinary: Denies hematuria, Denies dysuria, Denies urinary incontinence and Denies urinary urgency Musculoskeletal: Musculoskeletal: Reports no additional musculoskeletal complaints Integumentary/Breasts: Skin/Breast: Reports system reviewed and no additional complaints, except as docu Neurologic: Reports system reviewed and no additional complaints, except as documented Psychiatric: Psychiatric: Reports no additional psychiatric complaints [facility] Past Medical History Medical History Amputation toe 2nd toe on the right Anemia in chronic kidney disease Chronic anemia Dialysis patient Temporary DM2 (diabetes mellitus, type 2) DVT (deep venous thrombosis) Essential hypertension Generalized anxiety disorder PE (pulmonary thromboembolism) Pulmonary emboli Bilaterally S/P ORIF (open reduction internal fixation) fracture Right hip Type 2 diabetes mellitus with diabetic peripheral angiopathy without gangrene Surgical History Surgical History H/O cataract extraction Bilaterally History of appendectomy History of tonsillectomy S/P IVC filter Which was removed due to complications and infection. Family History Family History Mother Natural with unknown cause Father Natural with unknown cause Social History Social History Social History: The patient lives with his . He has 2 step children. He retired from the [employer]. He served in [employer]. He has not had any biological children. 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 He is a full code. Lifelong nonsmoker. Does not use any alcohol or drugs. Smoking status: Never smoker Second hand tobacco smoke exposure: No Alcohol intake: never Substance use: never Gender identity (if verbalized by the patient): Male Spiritual care concerns: No Meds Home Medications and Allergies Home Medications Medication Instructions Recorded Confirmed Type carboxymethylcellulose sodium 0.5 1 drop EACH EYE BID 08/22/19 05/02/20 Histor
[2020-05-03] MEDS: ROSUVASTATIN 10 MG TABLET 40 MG PO (09:47)
[2020-05-03] MEDS: FERROUS SULFATE 324 MG TABLET PO (09:47)
[2020-05-03] MEDS: GABAPENTIN 300 MG CAPSULE PO (09:47)
[2020-05-03] MEDS: OMEGA 3 POLYUNSAT FATTY ACIDS 1 GM CAP PO (09:47)
[2020-05-03] MEDS: PANTOPRAZOLE 40 MG TABLET PO (09:47)
[2020-05-03] MEDS: VITAMIN B COMPLEX CAPSULE 1 CAP PO (09:48)
--- NOTE | 2020-05-03 10:37 | PM.IMPN ---
Progress Note: A&P Assessment and Plan (1) Abscess of liver: Code(s): K75.0 - Abscess of liver Status: Acute Assessment and Plan: CT abd/pelvis revealed 4x3.6x3cm irregular fluid collection of the left hepatic lobe consistent with hepatic abscess. LFTs are elevated but are improving. He received empiric zosyn in the ED. He reports no hx of biliary surgery/instrumentation/disease. He has no recent travel outside the [place] and does not drink well water. He denies trauma/injury to the area. He is a diabetic with most recent A1C 8.1. Plan to obtain blood cultures. Continue zosyn. He will undergo percutaneous drain placement today by IR. General surgery is on board and input is appreciated. Will await culture results and ask infectious disease to see the patient pending cultures. (2) Acute kidney injury: Code(s): N17.9 - Acute kidney failure, unspecified Status: Acute Assessment and Plan: Cr at admission was 2.0 and BUN 33. His baseline Cr appears to be 1.6-1.8 on review of prior labs. Will add very gentle IV fluids. Continue to monitor BMP daily. Avoid nephrotoxins and renally dose medications. (3) Chronic anemia: Code(s): D64.9 - Anemia, unspecified Status: Chronic Assessment and Plan: Hemoglobin is 12.3 and Hct 36.3. He has chronic anemia and is on iron supplementation. Plan to continue ferrous sulfate. Continue to monitor CBC daily. (4) DM2 (diabetes mellitus, type 2): Code(s): E11.9 - Type 2 diabetes mellitus without complications Status: Chronic Assessment and Plan: Hemoglobin A1C was 8.1. Blood sugars were reviewed and are reasonably controlled. Continue basal insulin. Continue ACHS glucose monitoring, hypoglycemia protocol, and sliding scale insulin. Continue to monitor closely. (5) UTI (urinary tract infection): Code(s): N39.0 - Urinary tract infection, site not specified Status: Acute Assessment and Plan: Urine culture from 04/25/20 revealed multiple organisms <10,000 CFU/mL and considered colonizers. He is on zosyn for his liver abscess. UA was repeated in the emergency department and suspicious for UTI with WBC and leukocyte esterase. Urine culture is pending. Await results of urine culture. I suspect that his symptoms are more likely related to his liver abscess. (6) Diabetic polyneuropathy associated with type 2 diabetes mellitus: Code(s): E11.42 - Type 2 diabetes mellitus with diabetic polyneuropathy Status: Chronic Assessment and Plan: Chronic. Continue gabapentin. (7) Dyslipidemia associated with type 2 diabetes mellitus: Code(s): E11.69 - Type 2 diabetes mellitus with other specified complication; E78.5 - Hyperlipidemia, unspecified Status: Chronic Assessment and Plan: Chronic. Continue rosuvastatin and omega-3 fatty acids. (8) Generalized anxiety disorder: Code(s): F41.1 - Generalized anxiety disorder Status: Chronic Assessment and Plan: Chronic with no acute issues. Continue hydroxyzine. (9) DVT prophylaxis: Code(s): Z29.9 - Encounter for prophylactic measures, unspecified Status: Acute Assessment and Plan: He has a hx of VTE. He will undergo percutaneous drain today. Continue SCDs for now and start chemoprophylaxis following his procedure. Subjective Date/time seen: 05/03/20 10:37 Interval history: Mr. Shetty is a 75 y.o. male who is seen in follow-up for liver abscess. He is an insulin-dependent diabetic. He reports a mild frontal headache 3/10 and is very hungry but he is NPO as he is scheduled for IR percutaneous drain today. His abdominal pain has improved today. He denies nausea and vomiting at this time but reports intermittent nausea and very poor appetite since last . He denies chest pain and dyspnea. He denies calf tenderness and leg swelling. He reports chills since last . H
[2020-05-03 11:54] LABS: Glucose Point of Care 196 (65-105)
--- NOTE | 2020-05-03 16:35 | SUR.OPER ---
6064-Please see Moderate Sedation page for medications given. Thank you!
[2020-05-03] MEDS: SODIUM CHLORIDE 0.9% IV 1,000 ML 50 ML IV CONT (16:46)
[2020-05-03] MEDS: INSULIN GLARGINE (*BKC) 100 UNITS/ML 40 UNITS SUB-Q (16:50)
--- NOTE | 2020-05-03 17:10 | WPDMODSED ---
Moderate Sedation Note-Pt Data Patient Data Allergies Allergy/AdvReac Type Severity Reaction Status Date / Time oxycodone Allergy Unknown Vomiting Verified 05/02/20 14:42 Home Medications Medication Instructions Recorded Confirmed Type carboxymethylcellulose sodium 0.5 1 drop EACH EYE BID 08/22/19 05/02/20 History % eye drops in a dropperette ferrous sulfate 325 mg (65 mg 325 mg PO DAILY 08/22/19 05/02/20 History iron) tablet gabapentin 300 mg capsule 300 mg PO DAILY 08/22/19 05/02/20 History hydroxyzine HCl 10 mg tablet 10 mg PO QID PRN tablet 08/22/19 05/02/20 History omega-3 fatty acids 1,000 mg 1,000 mg PO DAILY 08/22/19 05/02/20 History capsule rosuvastatin 40 mg tablet 40 mg PO DAILY 08/22/19 05/02/20 History vitamin B complex 1 tablet PO DAILY 08/22/19 05/02/20 History alogliptin 6.25 mg tablet See Rx Instructions PO DAILY 03/22/20 05/02/20 History insulin aspart U-100 100 unit/mL See Rx Instructions SUB-Q TID #15 03/26/20 05/02/20 Rx (3 mL) subcutaneous pen ml insulin glargine 100 unit/mL 40 unit SUB-Q DAILY ml 03/26/20 05/02/20 History subcutaneous solution Current Medications: Active Medications Artificial Tears () 1 drop EACH EYE BID [facility] Stop: 06/02/20 09:01 Last Admin: 05/03/20 16:44 Dose: Not Given Documented by: Dextrose (Dextrose 50% Syringe) 12.5 gm IV PUSH PRN PRN; Protocol PRN Reason: Hypoglycemia Ferrous Sulfate (Ferrous Sulfate) 324 mg PO DAILY [facility] Last Admin: 05/03/20 09:47 Dose: 324 mg Documented by: Fish Oil (Lovaza) 1 gm PO DAILY [facility] Last Admin: 05/03/20 09:47 Dose: 1 gm Documented by: Gabapentin (Neurontin) 300 mg PO DAILY [facility] Last Admin: 05/03/20 09:47 Dose: 300 mg Documented by: Glucagon (Glucagon For Inj) 1 mg IM PRN PRN; Protocol PRN Reason: Hypoglycemia Glucose (Glutose 15) 15 gm PO PRN PRN; Protocol PRN Reason: Hypoglycemia Heparin Sodium (Porcine) (Heparin Sodium) 5,000 units SUB-Q Q8HR [facility] Hydroxyzine HCl (Atarax Tablet) 10 mg PO QID PRN PRN Reason: Anxiety Dextrose (Dextrose 5% 1,000 Ml) 1,000 mls @ 100 mls/hr IVPB PRN PRN; Protocol PRN Reason: Hypoglycemia Piperacillin Sod/Tazobactam Sod (Zosyn 2.25 Gm/D5w 50 Ml) 2.25 gm in 50 mls @ 100 mls/hr IVPB Q6H [facility] Last Admin: 05/03/20 16:49 Dose: 100 mls/hr Documented by: Sodium Chloride (Normal Saline Iv) 1,000 mls @ 50 mls/hr IV CONT .Q20H [facility] Last Admin: 05/03/20 16:46 Dose: 50 mls/hr Documented by: Insulin Aspart (Novolog) 2 - 5 units SUB-Q TIDWM [facility]; Protocol Last Admin: 05/03/20 16:43 Dose: Not Given Documented by: Insulin Glargine (Lantus) 40 units SUB-Q DAILY [facility] Last Admin: 05/03/20 16:50 Dose: 40 units Documented by: Ondansetron HCl (Zofran Inj) 4 mg IV PUSH Q4H PRN PRN Reason: Nausea And Vomiting Pantoprazole Sodium (Protonix) 40 mg PO QAM [facility] Last Admin: 05/03/20 09:47 Dose: 40 mg Documented by: Rosuvastatin Calcium (Crestor) 40 mg PO DAILY [facility] Last Admin: 05/03/20 09:47 Dose: 40 mg Documented by: Vitamin B Complex (Vitamin B Complex) 1 cap PO DAILY [facility] Last Admin: 05/03/20 09:48 Dose: 1 cap Documented by: Sedation/Anesthesia: No previous sedation/anesthesia problems (including family history). [facility] Past Medical History Medical History Amputation toe 2nd toe on the right Anemia in chronic kidney disease Chronic anemia Dialysis patient Temporary DM2 (diabetes mellitus, type 2) DVT (deep venous thrombosis) Essential hypertension Generalized anxiety disorder PE (pulmonary thromboembolism) Pulmonary emboli Bilaterally S/P ORIF (open reduction internal fixation) fracture Right hip Type 2 diabetes mellitus with diabetic peripheral angiopathy without gangrene Surgical History Surgical History H/O cataract extraction Bilaterally History of appendectomy History of tonsillectomy S/P IVC filter Which was removed due to complica
[2020-05-03 17:29] LABS: Glucose Point of Care 181 (65-105)
[2020-05-03] MEDS: HEPARIN SODIUM 5,000 UNITS/ML VIAL 5000 UNITS SUB-Q (21:05)
[2020-05-03 21:48] LABS: Glucose Point of Care 220 (65-105)
[2020-05-04 06:00] VITALS: BP 141/71; PULSE 78; RESP 16; TEMP 36.3; O2SAT 95
[2020-05-04] MEDS: HEPARIN SODIUM 5,000 UNITS/ML VIAL 5000 UNITS SUB-Q ×2 (06:09→13:10)
[2020-05-04 06:18] LABS: Basophils Absolute Auto 0.1 K/mm3 (0.0-0.1); Basophils Percent Auto 0.3 % (0.2-1.2); Eosinophils Absolute Auto 0.1 K/mm3 (0-0.3); Eosinophils Percent Auto 0.4 % (0-4.4); Hematocrit 32.4 % (42.0-52.0); Hemoglobin 10.8 g/dL (14.0-18.0); Immature Granulocyte Absolute 0.38 K/mm3 (0.00-0.031); Immature Granulocyte Percent A 2.1 % (0-0.5); Lymphocytes Absolute Auto 1.36 K/mm3 (0.9-3.2); Lymphocytes Percent Auto 7.4 % (18.3-44.2); Mean Corpuscular HGB Conc 33.3 g/dl (32-36); Mean Corpuscular Hemoglobin 28.2 pg (26-34); Mean Corpuscular Volume 84.6 fl (80-100); Mean Platelet Volume 11.1 fl (7.4-10.4); Monocytes Absolute Auto 0.9 K/mm3 (0.1-0.6); Monocytes Percent Auto 4.9 % (2.6-8.5); Neutrophils Absolute Auto 15.7 K/mm3 (1.3-6.7); Neutrophils Percent Auto 84.9 % (45.5-73.1); Platelet Count Result 258 k/mm3 (150-375); Red Blood Count 3.83 M/mm3 (4.6-6.20); Red Cell Distribution Width 14.8 % (11.5-14.5); White Blood Count 18.4 K/mm3 (4.5-10.0)
[2020-05-04 06:44] LABS: Alanine Aminotransferase 120 U/L (4-50); Albumin Level 3.3 g/dL (3.5-5.1); Alkaline Phosphatase 252 U/L (38-126); Anion Gap 10 mmol/L (8-16); Aspartate Amino Transferase 74 U/L (17-59); Bilirubin,Total 1.2 mg/dL (0.2-1.3); Blood Urea Nitrogen 33 mg/dL (9-20); Calcium 8.2 mg/dL (8.4-10.2); Carbon Dioxide 22 mmol/L (22-30); Chloride 103 mmol/L (98-107); Estimated CRCL calculation 29 ml/min; Estimated Glomerular Filt Rate 29; Glucose 224 mg/dL (75-110); Potassium 4.3 mmol/L (3.4-5.0); Sodium 135 mmol/L (137-145)
[2020-05-04 07:55] LABS: Glucose Point of Care 189 (65-105)
[2020-05-04 08:00] VITALS: PULSE 78; RESP 16; O2SAT 95
[2020-05-04] MEDS: OMEGA 3 POLYUNSAT FATTY ACIDS 1 GM CAP PO (08:03)
[2020-05-04] MEDS: PANTOPRAZOLE 40 MG TABLET PO (08:03)
[2020-05-04] MEDS: VITAMIN B COMPLEX CAPSULE 1 CAP PO (08:03)
[2020-05-04] MEDS: ROSUVASTATIN 10 MG TABLET 40 MG PO (08:03)
[2020-05-04] MEDS: FERROUS SULFATE 324 MG TABLET PO (08:03)
[2020-05-04] MEDS: GABAPENTIN 300 MG CAPSULE PO (08:03)
[2020-05-04] MEDS: INSULIN GLARGINE (*BKC) 100 UNITS/ML 40 UNITS SUB-Q (08:09)
--- NOTE | 2020-05-04 08:16 | PC.NURSE ---
0805 Patient spoke with his and she voiced and verified that he can take norco but cannot take percocet.
[2020-05-04 09:02] LABS: Free T4 Free Thyroxine Reflex 1.27 ng/dL (0.78-2.19)
[2020-05-04 11:27] LABS: Total Triiodothyronine (T3) 0.72 NG/ML (0.97-1.69)
[2020-05-04 11:58] LABS: Glucose Point of Care 221 (65-105)
[2020-05-04] MEDS: INSULIN ASPART (*BKC) 100 UNITS/ML SUB-Q (12:00)
[2020-05-04] MEDS: SODIUM CHLORIDE 0.9% IV 1,000 ML 50 ML IV CONT (13:47)
[2020-05-04 14:00] VITALS: BP 120/66; PULSE 77; RESP 18; TEMP 36.4; O2SAT 97
--- NOTE | 2020-05-04 14:31 | PM.PNGS ---
Progress Note: A&P Assessment and Plan (1) Abscess of liver: Code(s): K75.0 - Abscess of liver Status: Acute Assessment and Plan: Continue antibiotics, await cultures (2) Cholecystitis without calculus: Code(s): K81.9 - Cholecystitis, unspecified Status: Acute Assessment and Plan: drain output looks like clear bile, not sure if this could cause a hepatic abscess. Will see what cultures show and possibly get a cholangiogram through tube eventually. Subjective Subjective Date/Time Seen: 05/04/20 14:31 Tolerating diet. Pain controlled. No fevers. Exam GI: GI Palp: Yes Soft to palpation, No Tenderness to palpation present (GI) and No Guarding due to palpation present (GI) Other: Cholecystostomy tube with clear bilious output Hepatic drain with scan serosanguinous output Objective Data Vital Signs Vital Signs: Vital Signs - 24 hr 05/03/20 15:00 05/03/20 15:05 05/03/20 15:10 Temperature Pulse Rate 70 74 78 Respiratory Rate 20 22 H 21 H Blood Pressure 125/71 117/50 L 110/57 L Pulse Oximetry 96 96 98 05/03/20 15:15 05/03/20 15:20 05/03/20 15:25 Temperature Pulse Rate 80 80 79 Respiratory Rate 18 17 23 H Blood Pressure 121/67 123/77 134/72 Pulse Oximetry 98 98 100 05/03/20 15:30 05/03/20 15:35 05/03/20 15:40 Temperature Pulse Rate 78 78 79 Respiratory Rate 23 H 20 24 H Blood Pressure 125/72 130/74 132/75 Pulse Oximetry 100 100 96 05/03/20 15:45 05/03/20 15:50 05/03/20 15:55 Temperature Pulse Rate 78 78 81 Respiratory Rate 25 H 24 H 26 H Blood Pressure 139/74 125/74 121/74 Pulse Oximetry 97 97 97 05/03/20 16:00 05/03/20 16:05 05/03/20 16:10 Temperature Pulse Rate 80 83 83 Respiratory Rate 20 20 17 Blood Pressure 130/70 127/72 124/78 Pulse Oximetry 98 99 99 05/03/20 16:15 05/03/20 21:40 05/04/20 06:00 Temperature 37.1 C 36.3 C L Pulse Rate 86 109 H 78 Respiratory Rate 21 H 18 16 Blood Pressure 128/68 121/60 141/71 H Pulse Oximetry 96 95 95 05/04/20 08:00 Temperature Pulse Rate 78 Respiratory Rate 16 Blood Pressure Pulse Oximetry 95 Intake/Output Intake/Output: Intake & Output 05/01/20 05/02/20 05/03/20 05/04/20 23:59 23:59 23:59 23:59 Intake Total 971 746 0388 Output Total 1300 990 Balance 100 -480 1180 Meds/Results Medications: Active Medications Generic Name Dose Route Start Last Admin Trade Name Freq PRN Reason Stop Dose Admin Acetaminophen 650 mg 05/04/20 07:56 Tylenol Tablet PO Q6H PRN Mild Pain (1-3) or Fever Hydrocodone Bitart/Acetaminophen 1 tab 05/04/20 07:56 05/04/20 08:19 [place] 5-325 Mg PO 1 tab Q6H PRN Administration Pain Rated 4-6 Artificial Tears 1 drop 05/03/20 09:00 05/04/20 11:13 EACH EYE 06/02/20 09:01 Not Given BID MARILYN Dextrose 12.5 gm 05/03/20 00:36 Dextrose 50% Syringe IV PUSH PRN PRN Hypoglycemia Protocol Ferrous Sulfate 324 mg 05/03/20 09:00 05/04/20 08:03 Ferrous Sulfate PO 324 mg DAILY MARILYN Administration Fish Oil 1 gm 05/03/20 09:00 05/04/20 08:03 Lovaza PO 1 gm DAILY MARILYN Administration Gabapentin 300 mg 05/03/20 09:00 05/04/20 08:03 Neurontin PO 300 mg DAILY MARILYN Administration Glucagon 1 mg 05/03/20 00:36 Glucagon For Inj IM PRN PRN Hypoglycemia Protocol Glucose 15 gm 05/03/20 00:36 Glutose 15 PO PRN PRN Hypoglycemia Protocol Heparin Sodium (Porcine) 5,000 units 05/03/20 22:00 05/04/20 13:10 Heparin Sodium SUB-Q 5,000 units Q8HR MARILYN Administration Hydroxyzine HCl 10 mg 05/03/20 00:39 Atarax Tablet PO QID PRN Anxiety Dextrose 1,000 mls @ 100 mls/hr 05/03/20 00:36 Dextrose 5% 1,000 Ml IVPB PRN PRN Hypoglycemia Protocol Piperacillin Sod/Tazobactam Sod 2.25 gm in 50 mls @ 100 mls/hr 05/03/20 01:00 05/04/20 12:36 Zosyn 2.25 Gm/D5w 50 Ml IVPB Infused Q6H [facility] Infus
--- NOTE | 2020-05-04 14:32 | PM.IMPN ---
Progress Note: A&P Assessment and Plan (1) Abscess of liver: Code(s): K75.0 - Abscess of liver Status: Acute Assessment and Plan: CT abd/pelvis revealed 4x3.6x3cm irregular fluid collection of the left hepatic lobe consistent with hepatic abscess. LFTs are elevated and were normal 04/25/20. He reports no hx of biliary surgery/instrumentation/disease. He has no recent travel outside the [place] and does not drink well water. He denies trauma/injury to the area. He is a diabetic with most recent A1C 8.1. He underwent CT-guided percutaneous cholecystostomy and left hepatic lobe abscess drainage catheter placement. Drain management per general surgery. WBC increased today to 18.4 from 13.2. Continue zosyn and add metronidazole. General surgery is on board and input is appreciated. Will await culture results and ask infectious disease to see the patient pending cultures. Additional etiology for pyogenic liver abscess includes pylephlebitis since he does have portal vein thrombosis. (2) Cholecystitis without calculus: Code(s): K81.9 - Cholecystitis, unspecified Status: Acute Assessment and Plan: Discussed with IR and the gallbladder appeared to have an abscess during CT-guided drain placement so a drain was placed there as well. 10 cc of turbid yellow fluid was aspirated and sent for gram stain and culture. Preliminary culture results reveal gram-negative bacilli. Await final cultures. Appreciate general surgery input. Per general surgery, he may eventually need a cholangiogram tube. (3) Portal vein thrombosis: Code(s): I81 - Portal vein thrombosis Status: Acute Assessment and Plan: Visualized on CT abd/pelvis. May be secondary to his acute illness/abscess. Pylephlebitis is another consideration. Await blood and abscess culture results. Consider infectious disease consult pending culture results. He has a hx of PE/DVT. Discussed with IR who was fine for him to start therapeutic anticoagulation 24 hours after drain placement. Stop heparin SQ and begin heparin gtt. Monitor for any bleeding and plan to transition to a PO regimen prior to discharge. (4) Acute kidney injury: Code(s): N17.9 - Acute kidney failure, unspecified Status: Acute Assessment and Plan: Cr at admission was 2.0 and BUN 33. His baseline Cr appears to be 1.6-1.8 on review of prior labs. Will add very gentle IV fluids. Continue to monitor BMP daily. Avoid nephrotoxins and renally dose medications. (5) Chronic anemia: Code(s): D64.9 - Anemia, unspecified Status: Chronic Assessment and Plan: Hemoglobin is 12.3 and Hct 36.3. He has chronic anemia and is on iron supplementation. Plan to continue ferrous sulfate. Continue to monitor CBC daily. (6) DM2 (diabetes mellitus, type 2): Code(s): E11.9 - Type 2 diabetes mellitus without complications Status: Chronic Assessment and Plan: Hemoglobin A1C was 8.1. Blood sugars were reviewed and are reasonably controlled. Continue basal insulin. Continue ACHS glucose monitoring, hypoglycemia protocol, and sliding scale insulin. Continue to monitor closely. (7) UTI (urinary tract infection): Code(s): N39.0 - Urinary tract infection, site not specified Status: Acute Assessment and Plan: Urine culture from 04/25/20 revealed multiple organisms <10,000 CFU/mL and considered colonizers. He is on zosyn for his liver abscess. UA was repeated in the emergency department and suspicious for UTI with WBC and leukocyte esterase. Urine culture is pending. Await results of urine culture. I suspect that his symptoms are more likely related to his liver abscess. (8) Diabetic polyneuropathy associated with type 2 diabetes mellitus: Code(s): E11.42 - Type 2 diabetes mellitus with diabetic polyneuropathy Status: Chronic Assessment and Plan: Chronic. Continue gabapentin. (9) Dyslipidem
[2020-05-04] MEDS: HEPARIN SODIUM 5,000 UNITS/ML VIAL 2500 UNITS IV PUSH (15:54)
[2020-05-04 15:58] LABS: Basophils Percent Auto 0.2 % (0.2-1.2); Eosinophils Absolute Auto 0.2 K/mm3 (0-0.3); Eosinophils Percent Auto 1.2 % (0-4.4); Hematocrit 31.5 % (42.0-52.0); Hemoglobin 10.7 g/dL (14.0-18.0); Immature Granulocyte Absolute 0.33 K/mm3 (0.00-0.031); Lymphocytes Absolute Auto 1.41 K/mm3 (0.9-3.2); Lymphocytes Percent Auto 8.6 % (18.3-44.2); Mean Corpuscular Hemoglobin 29.1 pg (26-34); Mean Corpuscular Volume 85.6 fl (80-100); Monocytes Absolute Auto 0.8 K/mm3 (0.1-0.6); Neutrophils Absolute Auto 13.5 K/mm3 (1.3-6.7); Platelet Count Result 254 k/mm3 (150-375); Red Blood Count 3.68 M/mm3 (4.6-6.20); Red Cell Distribution Width 15.1 % (11.5-14.5); White Blood Count 16.3 K/mm3 (4.5-10.0)
[2020-05-04 16:12] LABS: INR 1.2; Partial Thromboplastin Time 36.7 SECONDS (22.3-36.8); Prothrombin Time 14.5 Seconds (11.1-14.7)
[2020-05-04 16:21] LABS: Glucose Point of Care 163 (65-105)
[2020-05-04] MEDS: HEPARIN SOD/D5W 100 UNITS/ML 25,000 UNITS/250 ML BAG 15 UNITS IV CONT (16:44)
[2020-05-04] MEDS: metroNIDAZOLE 500 MG/ISO 100ML 500 MG/100 ML BAG 100 MG IVPB (18:34)
[2020-05-04 19:41] VITALS: BP 144/71; PULSE 82; RESP 18; TEMP 37.1; O2SAT 95
[2020-05-04 21:12] LABS: Glucose Point of Care 198 (65-105)
[2020-05-04 22:53] LABS: Partial Thromboplastin Time 107.4 SECONDS (22.3-36.8)
[2020-05-05] MEDS: metroNIDAZOLE 500 MG/ISO 100ML 500 MG/100 ML BAG 100 MG IVPB ×3 (02:21→17:33)
[2020-05-05 05:55] VITALS: BP 144/70; PULSE 87; RESP 16; TEMP 36.9; O2SAT 93
[2020-05-05 06:07] LABS: Basophils Percent Auto 0.2 % (0.2-1.2); Eosinophils Absolute Auto 0.3 K/mm3 (0-0.3); Eosinophils Percent Auto 2.2 % (0-4.4); Hematocrit 30.5 % (42.0-52.0); Hemoglobin 10.5 g/dL (14.0-18.0); Immature Granulocyte Absolute 0.41 K/mm3 (0.00-0.031); Immature Granulocyte Percent A 2.8 % (0-0.5); Lymphocytes Absolute Auto 1.46 K/mm3 (0.9-3.2); Lymphocytes Percent Auto 9.8 % (18.3-44.2); Mean Corpuscular HGB Conc 34.4 g/dl (32-36); Mean Corpuscular Hemoglobin 28.8 pg (26-34); Mean Corpuscular Volume 83.6 fl (80-100); Mean Platelet Volume 10.6 fl (7.4-10.4); Monocytes Absolute Auto 0.9 K/mm3 (0.1-0.6); Monocytes Percent Auto 5.9 % (2.6-8.5); Neutrophils Absolute Auto 11.7 K/mm3 (1.3-6.7); Neutrophils Percent Auto 79.1 % (45.5-73.1); Platelet Count Result 294 k/mm3 (150-375); Red Blood Count 3.65 M/mm3 (4.6-6.20); Red Cell Distribution Width 14.5 % (11.5-14.5); White Blood Count 14.8 K/mm3 (4.5-10.0)
[2020-05-05 06:09] LABS: Partial Thromboplastin Time 77.2 SECONDS (22.3-36.8)
[2020-05-05 06:42] LABS: Alanine Aminotransferase 86 U/L (4-50); Albumin Level 3.2 g/dL (3.5-5.1); Alkaline Phosphatase 237 U/L (38-126); Anion Gap 7 mmol/L (8-16); Aspartate Amino Transferase 36 U/L (17-59); Bilirubin,Total 0.9 mg/dL (0.2-1.3); Blood Urea Nitrogen 27 mg/dL (9-20); Calcium 7.8 mg/dL (8.4-10.2); Carbon Dioxide 20 mmol/L (22-30); Chloride 103 mmol/L (98-107); Estimated CRCL calculation 34 ml/min; Estimated Glomerular Filt Rate 35; Glucose 195 mg/dL (75-110); Potassium 4.1 mmol/L (3.4-5.0); Sodium 130 mmol/L (137-145)
[2020-05-05 08:00] VITALS: PULSE 87; RESP 16; O2SAT 93
[2020-05-05 08:09] LABS: Glucose Point of Care 207 (65-105)
[2020-05-05] MEDS: HEPARIN SOD/D5W 100 UNITS/ML 25,000 UNITS/250 ML BAG 13 UNITS IV CONT (08:32)
[2020-05-05] MEDS: INSULIN ASPART (*BKC) 100 UNITS/ML SUB-Q ×2 (08:34→12:39)
[2020-05-05] MEDS: PANTOPRAZOLE 40 MG TABLET PO (08:39)
[2020-05-05] MEDS: ROSUVASTATIN 10 MG TABLET 40 MG PO (08:39)
[2020-05-05] MEDS: VITAMIN B COMPLEX CAPSULE 1 CAP PO (08:39)
[2020-05-05] MEDS: FERROUS SULFATE 324 MG TABLET PO (08:40)
[2020-05-05] MEDS: GABAPENTIN 300 MG CAPSULE PO (08:40)
[2020-05-05] MEDS: OMEGA 3 POLYUNSAT FATTY ACIDS 1 GM CAP PO (08:40)
[2020-05-05] MEDS: INSULIN GLARGINE (*BKC) 100 UNITS/ML 45 UNITS SUB-Q (09:12)
--- NOTE | 2020-05-05 10:28 | PM.PNGS ---
Progress Note: A&P Assessment and Plan (1) Abscess of liver: Code(s): K75.0 - Abscess of liver Status: Acute Assessment and Plan: Continue antibiotics, await cultures (2) Cholecystitis without calculus: Code(s): K81.9 - Cholecystitis, unspecified Status: Acute Assessment and Plan: drain output looks like clear bile, not sure if this could cause a hepatic abscess. Will see what cultures show and possibly get a cholangiogram through tube eventually. Subjective Subjective Date/Time Seen: 05/05/20 10:28 Doing well. Pain around the drains. Otherwise doing ok. Exam GI: GI Palp: Yes Soft to palpation, No Tenderness to palpation present (GI) and No Guarding due to palpation present (GI) Other: Cholecystostomy tube with clear bilious output Hepatic drain with scant serosanguinous output Objective Data Vital Signs Vital Signs: Vital Signs - 24 hr 05/04/20 14:00 05/04/20 19:41 05/05/20 05:55 Temperature 36.4 C L 37.1 C 36.9 C Pulse Rate 77 82 87 Respiratory Rate 18 18 16 Blood Pressure 120/66 144/71 H 144/70 H Pulse Oximetry 97 95 93 05/05/20 08:00 Temperature Pulse Rate 87 Respiratory Rate 16 Blood Pressure Pulse Oximetry 93 Intake/Output Intake/Output: Intake & Output 05/02/20 05/03/20 05/04/20 05/05/20 23:59 23:59 23:59 23:59 Intake Total 833 184 9976 800 Output Total 1300 1250 1025 Balance 100 -480 1410 -225 Meds/Results Medications: Active Medications Generic Name Dose Route Start Last Admin Trade Name Freq PRN Reason Stop Dose Admin Acetaminophen 650 mg 05/04/20 07:56 Tylenol Tablet PO Q6H PRN Mild Pain (1-3) or Fever Hydrocodone Bitart/Acetaminophen 1 tab 05/04/20 07:56 05/04/20 20:55 [place] 5-325 Mg PO 1 tab Q6H PRN Administration Pain Rated 4-6 Artificial Tears 1 drop 05/03/20 09:00 05/05/20 08:42 EACH EYE 06/02/20 09:01 Not Given BID MARILYN Dextrose 12.5 gm 05/03/20 00:36 Dextrose 50% Syringe IV PUSH PRN PRN Hypoglycemia Protocol Ferrous Sulfate 324 mg 05/03/20 09:00 05/05/20 08:40 Ferrous Sulfate PO 324 mg DAILY MARILYN Administration Fish Oil 1 gm 05/03/20 09:00 05/05/20 08:40 Lovaza PO 1 gm DAILY MARILYN Administration Gabapentin 300 mg 05/03/20 09:00 05/05/20 08:40 Neurontin PO 300 mg DAILY MARILYN Administration Glucagon 1 mg 05/03/20 00:36 Glucagon For Inj IM PRN PRN Hypoglycemia Protocol Glucose 15 gm 05/03/20 00:36 Glutose 15 PO PRN PRN Hypoglycemia Protocol Heparin Sodium (Porcine) 7,000 units 05/04/20 14:47 Heparin Sodium IV PUSH PRN PRN aPTT less than 55 seconds Heparin Sodium (Porcine) 3,500 units 05/04/20 14:47 Heparin Sodium IV PUSH PRN PRN aPTT 55 - 70 seconds Hydroxyzine HCl 10 mg 05/03/20 00:39 Atarax Tablet PO QID PRN Anxiety Dextrose 1,000 mls @ 100 mls/hr 05/03/20 00:36 Dextrose 5% 1,000 Ml IVPB PRN PRN Hypoglycemia Protocol Piperacillin Sod/Tazobactam Sod 2.25 gm in 50 mls @ 100 mls/hr 05/03/20 01:00 05/05/20 06:15 Zosyn 2.25 Gm/D5w 50 Ml IVPB 100 mls/hr Q6H MARILYN Administration Sodium Chloride 1,000 mls @ 50 mls/hr 05/03/20 11:30 05/04/20 13:47 Normal Saline Iv IV CONT 50 mls/hr .Q20H MARILYN Administration Heparin Sodium/Dextrose 25,000 units in 250 mls @ 13 mls/hr 05/04/20 15:30 05/05/20 08:32 Heparin Sodium/D5w 100 Units/Ml IV CONT 1,300 units/hr .[id number] MARILYN 13 mls/hr Administration Protocol 1,300 UNITS/HR Metronidazole 500 mg in 100 mls @ 100 mls/hr 05/04/20 18:00 05/05/20 09:22 Flagyl 500 Mg/Iso Soln 100 Ml IVPB 100 mls/hr Q8H MARILYN Administration Insulin Aspart 3 - 6 units 05/05/20 08:00 05/05/20 08:34 Novolog SUB-Q 3 units TIDWM MARILYN Administration Protocol Insulin Glargine 45 units 05/05/20 09:00 05/05/20 09:12 Lantus SUB-Q 45 uni
[2020-05-05 12:08] LABS: Partial Thromboplastin Time 57.4 SECONDS (22.3-36.8)
[2020-05-05 12:31] LABS: Glucose Point of Care 221 (65-105)
[2020-05-05] MEDS: HEPARIN SODIUM 5,000 UNITS/ML VIAL 3500 UNITS IV PUSH (13:22)
[2020-05-05 14:00] VITALS: BP 116/59; PULSE 74; RESP 20; TEMP 37.1; O2SAT 97
--- NOTE | 2020-05-05 15:40 | PM.IMPN ---
Progress Note: A&P Assessment and Plan (1) Abscess of liver: Code(s): K75.0 - Abscess of liver Status: Acute Assessment and Plan: CT abd/pelvis revealed 4x3.6x3cm irregular fluid collection of the left hepatic lobe consistent with hepatic abscess. LFTs were elevated at presentation and were normal 04/25/20. He reports no hx of biliary surgery/instrumentation/disease. He has no recent travel outside the [place] and does not drink well water. He denies trauma/injury to the area. He is a diabetic with most recent A1C 8.1. He underwent CT-guided percutaneous cholecystostomy and left hepatic lobe abscess drainage catheter placement. Drain management per general surgery. Preliminary gallbladder cyst aspirate anaerobic and aerobic cultures show gram negative bacilli. Sensitivities are pending. WBC is improving to 14.8 today. Continue zosyn and metronidazole. General surgery is on board and input is appreciated. Await culture results and ask infectious disease to see the patient pending cultures. (2) Cholecystitis without calculus: Code(s): K81.9 - Cholecystitis, unspecified Status: Acute Assessment and Plan: Discussed with IR and the gallbladder appeared to have an abscess during CT-guided drain placement so a drain was placed there as well. 10 cc of turbid yellow fluid was aspirated and sent for gram stain and culture. Preliminary culture results reveal gram-negative bacilli. Await final cultures. Appreciate general surgery input. Per general surgery, he may eventually need a cholangiogram tube. (3) Portal vein thrombosis: Code(s): I81 - Portal vein thrombosis Status: Acute Assessment and Plan: Visualized on CT abd/pelvis. May be secondary to his acute illness/abscess. Pylephlebitis is another consideration but unlikely given finding of gram-negative bacilli on culture from percutaneous cholecystostomy fluid culture. Await blood and abscess culture results. Consider infectious disease consult pending culture results. He has a hx of PE/DVT. Discussed with IR who was fine for him to start therapeutic anticoagulation 24 hours after drain placement. Continue heparin gtt and transition to PO regimen within the next 24 hours. (4) Acute kidney injury: Code(s): N17.9 - Acute kidney failure, unspecified Status: Acute Assessment and Plan: Cr at admission was 2.0 and BUN 33. His baseline Cr appears to be 1.6-1.8 on review of prior labs. Cr is 1.9 and BUN 27. He is tolerating PO intake well so will stop IV fluids. Continue to monitor BMP daily. Avoid nephrotoxins and renally dose medications. (5) Chronic anemia: Code(s): D64.9 - Anemia, unspecified Status: Chronic Assessment and Plan: Hemoglobin is 10.5 and Hct 30.5. He has chronic anemia and is on iron supplementation. Continue ferrous sulfate. Continue to monitor CBC daily. He needs to ensure he is up to date on his screening colonoscopy. (6) DM2 (diabetes mellitus, type 2): Code(s): E11.9 - Type 2 diabetes mellitus without complications Status: Chronic Assessment and Plan: Hemoglobin A1C was 8.1. Blood sugars were reviewed and are mildly elevated above target. Continue basal insulin. Continue ACHS glucose monitoring, hypoglycemia protocol, and sliding scale insulin. Increase SSI to high dose. Continue to monitor closely. (7) UTI (urinary tract infection): Code(s): N39.0 - Urinary tract infection, site not specified Status: Resolved Assessment and Plan: Urine culture from 04/25/20 revealed multiple organisms <10,000 CFU/mL and considered colonizers. He is on zosyn for his liver abscess. UA was repeated in the emergency department and urine culture was negative for growth. (8) Diabetic polyneuropathy associated with type 2 diabetes mellitus: Code(s): E11.42 - Type 2 diabetes mellitus with diabetic polyneuropathy Status: Chronic
[2020-05-05 16:35] LABS: Glucose Point of Care 192 (65-105)
[2020-05-05 19:26] LABS: Partial Thromboplastin Time 71.7 SECONDS (22.3-36.8)
[2020-05-05 20:33] VITALS: BP 122/59; PULSE 79; RESP 18; TEMP 36.9; O2SAT 95
[2020-05-05 22:26] LABS: Glucose Point of Care 174 (65-105)
[2020-05-06 01:53] LABS: Partial Thromboplastin Time 78.1 SECONDS (22.3-36.8)
[2020-05-06] MEDS: HEPARIN SOD/D5W 100 UNITS/ML 25,000 UNITS/250 ML BAG 15 UNITS IV CONT (01:54)
[2020-05-06] MEDS: metroNIDAZOLE 500 MG/ISO 100ML 500 MG/100 ML BAG 100 MG IVPB ×2 (02:30→09:37)
[2020-05-06 05:42] VITALS: BP 132/68; PULSE 76; RESP 18; TEMP 36.8; O2SAT 95
[2020-05-06 07:08] LABS: Basophils Percent Auto 0.3 % (0.2-1.2); Eosinophils Absolute Auto 0.5 K/mm3 (0-0.3); Eosinophils Percent Auto 3.5 % (0-4.4); Hemoglobin 11.1 g/dL (14.0-18.0); Immature Granulocyte Absolute 0.33 K/mm3 (0.00-0.031); Immature Granulocyte Percent A 2.2 % (0-0.5); Lymphocytes Absolute Auto 1.84 K/mm3 (0.9-3.2); Lymphocytes Percent Auto 12.4 % (18.3-44.2); Mean Corpuscular HGB Conc 33.6 g/dl (32-36); Mean Corpuscular Hemoglobin 28.3 pg (26-34); Mean Corpuscular Volume 84.2 fl (80-100); Mean Platelet Volume 10.2 fl (7.4-10.4); Monocytes Absolute Auto 0.9 K/mm3 (0.1-0.6); Monocytes Percent Auto 6.1 % (2.6-8.5); Neutrophils Absolute Auto 11.2 K/mm3 (1.3-6.7); Neutrophils Percent Auto 75.5 % (45.5-73.1); Platelet Count Result 323 k/mm3 (150-375); Red Blood Count 3.92 M/mm3 (4.6-6.20); Red Cell Distribution Width 14.5 % (11.5-14.5); White Blood Count 14.9 K/mm3 (4.5-10.0)
[2020-05-06 07:18] LABS: Alanine Aminotransferase 66 U/L (4-50); Albumin Level 3.5 g/dL (3.5-5.1); Alkaline Phosphatase 227 U/L (38-126); Anion Gap 8 mmol/L (8-16); Aspartate Amino Transferase 29 U/L (17-59); Bilirubin,Total 0.9 mg/dL (0.2-1.3); Blood Urea Nitrogen 23 mg/dL (9-20); Calcium 8.4 mg/dL (8.4-10.2); Carbon Dioxide 21 mmol/L (22-30); Chloride 101 mmol/L (98-107); Estimated CRCL calculation 35 ml/min; Estimated Glomerular Filt Rate 37; Glucose 193 mg/dL (75-110); Potassium 4.2 mmol/L (3.4-5.0); Sodium 130 mmol/L (137-145)
[2020-05-06 07:29] LABS: Glucose Point of Care 179 (65-105)
[2020-05-06 08:10] LABS: Partial Thromboplastin Time 74.9 SECONDS (22.3-36.8)
[2020-05-06] MEDS: ROSUVASTATIN 10 MG TABLET 40 MG PO (09:40)
[2020-05-06] MEDS: FERROUS SULFATE 324 MG TABLET PO (09:40)
[2020-05-06] MEDS: VITAMIN B COMPLEX CAPSULE 1 CAP PO (09:41)
[2020-05-06] MEDS: OMEGA 3 POLYUNSAT FATTY ACIDS 1 GM CAP PO (09:41)
[2020-05-06] MEDS: PANTOPRAZOLE 40 MG TABLET PO (09:41)
[2020-05-06] MEDS: GABAPENTIN 300 MG CAPSULE PO (09:41)
[2020-05-06 09:52] VITALS: RESP 18; O2SAT 94
[2020-05-06] MEDS: INSULIN GLARGINE (*BKC) 100 UNITS/ML 45 UNITS SUB-Q (09:52)
[2020-05-06 11:37] LABS: Glucose Point of Care 210 (65-105)
[2020-05-06] MEDS: INSULIN ASPART (*BKC) 100 UNITS/ML SUB-Q (12:02)
--- NOTE | 2020-05-06 12:45 | PM.IMPN ---
Progress Note: A&P Assessment and Plan (1) Abscess of liver: Code(s): K75.0 - Abscess of liver Status: Acute Assessment and Plan: CT abd/pelvis revealed 4x3.6x3cm irregular fluid collection of the left hepatic lobe consistent with hepatic abscess. LFTs are elevated above baseline. He reports no hx of biliary surgery/instrumentation/disease. He has no recent travel outside the [place] and does not drink well water. He denies trauma/injury to the area. He is a diabetic with most recent A1C 8.1. He underwent CT-guided percutaneous cholecystostomy and left hepatic lobe abscess drainage catheter placement 05/03/20. Drain management per general surgery. Gallbladder cyst aspirate shows E. coli which suggests that acute cholecystitis was the cause of his hepatic abscess. WBC is mildly increased to 14.9 today. Continue IV zosyn (initiated 05/03) and stop IV metronidazole. General surgery is on board and input is appreciated. The hepatic abscess drain has minimal output and may possibly be removed tomorrow per general surgery. (2) Cholecystitis without calculus: Code(s): K81.9 - Cholecystitis, unspecified Status: Acute Assessment and Plan: Discussed with IR and the gallbladder appeared to have an abscess during CT-guided drain placement so a drain was placed there as well. 10 cc of turbid yellow fluid was aspirated and sent for gram stain and culture and shows E. coli. Appreciate general surgery input. He will need to leave the cholecystostomy drain in for 3-4 weeks. Cholangiogram will be arranged eventually. (3) Portal vein thrombosis: Code(s): I81 - Portal vein thrombosis Status: Acute Assessment and Plan: Visualized on CT abd/pelvis. He has a hx of VTE. Pyephlebitis was considered but felt less likely given findings of E. coli on gallbladder aspirate suggesting acute cholecystitis. Plan to stop heaprin gtt and begin PO eliquis tonight. (4) Acute kidney injury: Code(s): N17.9 - Acute kidney failure, unspecified Status: Acute Assessment and Plan: Cr at admission was 2.0 and BUN 33. His baseline Cr appears to be 1.6-1.8 on review of prior labs. Cr is 1.8 and BUN 23 which is likely close to baseline. Continue to monitor BMP daily. Avoid nephrotoxins and renally dose medications. (5) Chronic anemia: Code(s): D64.9 - Anemia, unspecified Status: Chronic Assessment and Plan: Hemoglobin is 10.5 and Hct 30.5. He has chronic anemia and is on iron supplementation. Continue ferrous sulfate. Continue to monitor CBC daily. He needs to ensure he is up to date on his screening colonoscopy. (6) DM2 (diabetes mellitus, type 2): Code(s): E11.9 - Type 2 diabetes mellitus without complications Status: Chronic Assessment and Plan: Hemoglobin A1C was 8.1. Blood sugars were reviewed and are reasonably controlled. Continue basal insulin. Continue ACHS glucose monitoring, hypoglycemia protocol, and sliding scale insulin. Increase SSI to high dose. Continue to monitor closely. (7) Diabetic polyneuropathy associated with type 2 diabetes mellitus: Code(s): E11.42 - Type 2 diabetes mellitus with diabetic polyneuropathy Status: Chronic Assessment and Plan: Chronic. Continue gabapentin. (8) Dyslipidemia associated with type 2 diabetes mellitus: Code(s): E11.69 - Type 2 diabetes mellitus with other specified complication; E78.5 - Hyperlipidemia, unspecified Status: Chronic Assessment and Plan: Chronic. Continue rosuvastatin and omega-3 fatty acids. (9) Generalized anxiety disorder: Code(s): F41.1 - Generalized anxiety disorder Status: Chronic Assessment and Plan: Chronic with no acute issues. Continue hydroxyzine. (10) Hypothyroidism: Code(s): E03.9 - Hypothyroidism, unspecified Status: Acute Assessment and Plan: TSH elevated at 4.8, free T4
--- NOTE | 2020-05-06 15:45 | PM.PNGS ---
Progress Note: A&P Assessment and Plan (1) Abscess of liver: Code(s): K75.0 - Abscess of liver Status: Acute Assessment and Plan: Minimal drainage from hepatic abscess. Possibly could remove tomorrow. Continue antibiotics. WBC not down, but no other signs of ongoing infection. (2) Cholecystitis without calculus: Code(s): K81.9 - Cholecystitis, unspecified Status: Acute Assessment and Plan: Cholecystostomy tube in place with bilious output. Will switch to bile bag. Will need to keep drain in place for 3-4 weeks before can safely remove. Cholangiogram will be arranged eventually. (3) Portal vein thrombosis: Code(s): I81 - Portal vein thrombosis Status: Acute Assessment and Plan: on anticoagulation Subjective Subjective Date/Time Seen: 05/06/20 15:45 Doing well. Tolerating diet. No fevers. Exam GI: GI Palp: Yes Soft to palpation, No Tenderness to palpation present (GI) and No Guarding due to palpation present (GI) Other: Cholecystostomy tube with clear bilious output Hepatic drain with scant serosanguinous output Objective Data Vital Signs Vital Signs: Vital Signs - 24 hr 05/05/20 20:33 05/06/20 05:42 Temperature 36.9 C 36.8 C Pulse Rate 79 76 Respiratory Rate 18 18 Blood Pressure 122/59 L 132/68 Pulse Oximetry 95 95 Intake/Output Intake/Output: Intake & Output 05/03/20 05/04/20 05/05/20 05/06/20 23:59 23:59 23:59 23:59 Intake Total 820 2660 3120 1705 Output Total 1300 1250 1545 860 Balance -480 1410 1575 845 Meds/Results Medications: Active Medications Generic Name Dose Route Start Last Admin Trade Name Freq PRN Reason Stop Dose Admin Acetaminophen 650 mg 05/04/20 07:56 Tylenol Tablet PO Q6H PRN Mild Pain (1-3) or Fever Hydrocodone Bitart/Acetaminophen 1 tab 05/04/20 07:56 05/04/20 20:55 [place] 5-325 Mg PO 1 tab Q6H PRN Administration Pain Rated 4-6 Dextrose 12.5 gm 05/03/20 00:36 Dextrose 50% Syringe IV PUSH PRN PRN Hypoglycemia Protocol Ferrous Sulfate 324 mg 05/03/20 09:00 05/06/20 09:40 Ferrous Sulfate PO 324 mg DAILY MARILYN Administration Fish Oil 1 gm 05/03/20 09:00 05/06/20 09:41 Lovaza PO 1 gm DAILY MARILYN Administration Gabapentin 300 mg 05/03/20 09:00 05/06/20 09:41 Neurontin PO 300 mg DAILY MARILYN Administration Glucagon 1 mg 05/03/20 00:36 Glucagon For Inj IM PRN PRN Hypoglycemia Protocol Glucose 15 gm 05/03/20 00:36 Glutose 15 PO PRN PRN Hypoglycemia Protocol Heparin Sodium (Porcine) 7,000 units 05/05/20 12:52 Heparin Sodium IV PUSH PRN PRN aPTT less than 55 seconds Heparin Sodium (Porcine) 3,500 units 05/05/20 12:53 05/05/20 13:22 Heparin Sodium IV PUSH 3,500 units PRN PRN Administration aPTT 55 - 70 seconds Hydroxyzine HCl 10 mg 05/03/20 00:39 Atarax Tablet PO QID PRN Anxiety Dextrose 1,000 mls @ 100 mls/hr 05/03/20 00:36 Dextrose 5% 1,000 Ml IVPB PRN PRN Hypoglycemia Protocol Piperacillin Sod/Tazobactam Sod 2.25 gm in 50 mls @ 100 mls/hr 05/03/20 01:00 05/06/20 12:50 Zosyn 2.25 Gm/D5w 50 Ml IVPB 100 mls/hr Q6H MARILYN Administration Heparin Sodium/Dextrose 25,000 units in 250 mls @ 15 mls/hr 05/04/20 15:30 05/06/20 05:42 Heparin Sodium/D5w 100 Units/Ml IV CONT 1,500 units/hr .[id number] MARILYN 15 mls/hr Titration Protocol 1,500 UNITS/HR Metronidazole 500 mg in 100 mls @ 100 mls/hr 05/04/20 18:00 05/06/20 10:40 Flagyl 500 Mg/Iso Soln 100 Ml IVPB Infused Q8H MARILYN Infusion Insulin Aspart 4 - 8 units 05/05/20 17:00 05/06/20 12:02 Novolog SUB-Q 4 units TIDWM MARILYN Administration Protocol Insulin Glargine 45 units 05/05/20 09:00 05/06/20 09:52 Lantus SUB-Q 45 units DAILY MARILYN Administration Ondansetron HCl 4 mg 05/03/20 00:37 Zofran Inj IV PUSH
[2020-05-06 16:00] VITALS: BP 132/79; PULSE 72; RESP 14; TEMP 36.8; O2SAT 98
[2020-05-06 16:50] LABS: Glucose Point of Care 155 (65-105)
[2020-05-06] MEDS: APIXABAN 5 MG TABLET PO (20:42)
[2020-05-06 22:00] VITALS: BP 123/60; PULSE 75; RESP 20; TEMP 37.3; O2SAT 96
[2020-05-07 00:55] LABS: Glucose Point of Care 181 (65-105)
[2020-05-07 05:57] VITALS: BP 119/65; PULSE 74; RESP 18; TEMP 36.6; O2SAT 93
[2020-05-07 05:58] LABS: Basophils Percent Auto 0.2 % (0.2-1.2); Eosinophils Absolute Auto 0.5 K/mm3 (0-0.3); Eosinophils Percent Auto 3.3 % (0-4.4); Hemoglobin 10.8 g/dL (14.0-18.0); Immature Granulocyte Absolute 0.24 K/mm3 (0.00-0.031); Immature Granulocyte Percent A 1.5 % (0-0.5); Lymphocytes Absolute Auto 1.28 K/mm3 (0.9-3.2); Mean Corpuscular HGB Conc 33.8 g/dl (32-36); Mean Corpuscular Hemoglobin 28.8 pg (26-34); Mean Corpuscular Volume 85.3 fl (80-100); Mean Platelet Volume 10.4 fl (7.4-10.4); Monocytes Absolute Auto 0.9 K/mm3 (0.1-0.6); Monocytes Percent Auto 5.8 % (2.6-8.5); Neutrophils Absolute Auto 12.9 K/mm3 (1.3-6.7); Neutrophils Percent Auto 81.2 % (45.5-73.1); Platelet Count Result 324 k/mm3 (150-375); Red Blood Count 3.75 M/mm3 (4.6-6.20); Red Cell Distribution Width 14.6 % (11.5-14.5)
[2020-05-07 06:10] LABS: Partial Thromboplastin Time 41.2 SECONDS (22.3-36.8)
[2020-05-07 06:16] LABS: Alanine Aminotransferase 49 U/L (4-50); Albumin Level 3.1 g/dL (3.5-5.1); Alkaline Phosphatase 179 U/L (38-126); Anion Gap 8 mmol/L (8-16); Aspartate Amino Transferase 24 U/L (17-59); Bilirubin,Total 0.5 mg/dL (0.2-1.3); Blood Urea Nitrogen 23 mg/dL (9-20); Calcium 8.2 mg/dL (8.4-10.2); Carbon Dioxide 22 mmol/L (22-30); Chloride 101 mmol/L (98-107); Estimated CRCL calculation 35 ml/min; Estimated Glomerular Filt Rate 37; Glucose 138 mg/dL (75-110); Potassium 4.4 mmol/L (3.4-5.0); Sodium 131 mmol/L (137-145)
[2020-05-07 07:56] LABS: Glucose Point of Care 144 (65-105)
[2020-05-07 08:39] VITALS: RESP 18; O2SAT 93
[2020-05-07] MEDS: PANTOPRAZOLE 40 MG TABLET PO (08:39)
[2020-05-07] MEDS: APIXABAN 5 MG TABLET PO ×2 (08:39→20:23)
[2020-05-07] MEDS: GABAPENTIN 300 MG CAPSULE PO (08:39)
[2020-05-07] MEDS: VITAMIN B COMPLEX CAPSULE 1 CAP PO (08:39)
[2020-05-07] MEDS: OMEGA 3 POLYUNSAT FATTY ACIDS 1 GM CAP PO (08:39)
[2020-05-07] MEDS: FERROUS SULFATE 324 MG TABLET PO (08:39)
[2020-05-07] MEDS: ROSUVASTATIN 10 MG TABLET 40 MG PO (08:39)
[2020-05-07] MEDS: INSULIN GLARGINE (*BKC) 100 UNITS/ML 45 UNITS SUB-Q (08:47)
[2020-05-07 08:52] LABS: IFOB Positive Control Positive; Immunochemical Fecal Occult Bl Positive (N)
--- NOTE | 2020-05-07 10:17 | PM.PNGS ---
Progress Note: A&P Assessment and Plan (1) Abscess of liver: Code(s): K75.0 - Abscess of liver Status: Acute Assessment and Plan: no drainage from perc drain, WBC 16k, clinically assymptomatic, will repeat CT, cont abx (2) Cholecystitis without calculus: Code(s): K81.9 - Cholecystitis, unspecified Status: Acute Assessment and Plan: cont perc cholecystostomy, will need to keep in for at least 4 wks, cont abx for now (3) Portal vein thrombosis: Code(s): I81 - Portal vein thrombosis Status: Acute Assessment and Plan: anticoagulation Subjective Subjective Date/Time Seen: 05/07/20 10:17 feels good, wants to go home Review of Systems Constitutional: Constitutional: Denies body ache(s), Denies chills and Reports fatigue Cardiovascular: Cardiovascular: Denies chest pain and Denies palpitations Respiratory: Respiratory: Denies dyspnea Gastrointestinal: Gastrointestinal: Denies abdominal pain, Denies bloating, Denies constipation, Denies diarrhea, Denies nausea and Denies vomiting Exam Const: General: no acute distress Resp: Auscultation: clear to auscultation bilaterally Cardio: Rate: regular rate Rhythm: regular rhythm GI: Other: S, sl dist, NT Objective Data Vital Signs Vital Signs: Vital Signs - 24 hr 05/06/20 16:00 05/06/20 22:00 05/07/20 05:57 Temperature 36.8 C 37.3 C 36.6 C Pulse Rate 72 75 74 Respiratory Rate 14 20 18 Blood Pressure 132/79 123/60 119/65 Pulse Oximetry 98 96 93 05/07/20 08:39 Temperature Pulse Rate Respiratory Rate 18 Blood Pressure Pulse Oximetry 93 Intake/Output Intake/Output: Intake & Output 05/04/20 05/05/20 05/06/20 05/07/20 23:59 23:59 23:59 23:59 Intake Total 2660 3120 3470 780 Output Total 1250 1545 2060 1160 Balance 1410 1575 1410 -380 Meds/Results Medications: Active Medications Generic Name Dose Route Start Last Admin Trade Name Freq PRN Reason Stop Dose Admin Acetaminophen 650 mg 05/04/20 07:56 Tylenol Tablet PO Q6H PRN Mild Pain (1-3) or Fever Hydrocodone Bitart/Acetaminophen 1 tab 05/04/20 07:56 05/04/20 20:55 [place] 5-325 Mg PO 1 tab Q6H PRN Administration Pain Rated 4-6 Apixaban 5 mg 05/06/20 21:00 05/07/20 08:39 Eliquis PO 5 mg Q12HR MARILYN Administration Dextrose 12.5 gm 05/03/20 00:36 Dextrose 50% Syringe IV PUSH PRN PRN Hypoglycemia Protocol Ferrous Sulfate 324 mg 05/03/20 09:00 05/07/20 08:39 Ferrous Sulfate PO 324 mg DAILY MARILYN Administration Fish Oil 1 gm 05/03/20 09:00 05/07/20 08:39 Lovaza PO 1 gm DAILY MARILYN Administration Gabapentin 300 mg 05/03/20 09:00 05/07/20 08:39 Neurontin PO 300 mg DAILY MARILYN Administration Glucagon 1 mg 05/03/20 00:36 Glucagon For Inj IM PRN PRN Hypoglycemia Protocol Glucose 15 gm 05/03/20 00:36 Glutose 15 PO PRN PRN Hypoglycemia Protocol Hydroxyzine HCl 10 mg 05/03/20 00:39 Atarax Tablet PO QID PRN Anxiety Dextrose 1,000 mls @ 100 mls/hr 05/03/20 00:36 Dextrose 5% 1,000 Ml IVPB PRN PRN Hypoglycemia Protocol Piperacillin Sod/Tazobactam Sod 2.25 gm in 50 mls @ 100 mls/hr 05/06/20 19:00 05/07/20 06:34 Zosyn 2.25 Gm/D5w 50 Ml IVPB Infused Q6H [facility] Infusion Insulin Aspart 4 - 8 units 05/05/20 17:00 05/07/20 08:37 Novolog SUB-Q Not Given TIDWM [facility] Protocol Insulin Glargine 45 units 05/05/20 09:00 05/07/20 08:47 Lantus SUB-Q 45 units DAILY [facility] Administration Ondansetron HCl 4 mg 05/03/20 00:37 Zofran Inj IV PUSH Q4H PRN Nausea And Vomiting Pantoprazole Sodium 40 mg 05/03/20 09:00 05/07/20 08:39 Protonix PO 40 mg QAM MARILYN Administration Rosuvastatin Calcium 40 mg 05/03/20 09:00 05/07/20 08:39 Crestor PO 40 mg DAILY MARILYN Administration Vitamin B Complex 1 cap 05/03/20 09:00 05/07/20 08:
[2020-05-07 11:38] LABS: Glucose Point of Care 177 (65-105)
--- NOTE | 2020-05-07 12:01 | PM.IMPN ---
Progress Note: A&P Assessment and Plan (1) Abscess of liver: Code(s): K75.0 - Abscess of liver Status: Acute Assessment and Plan: CT abd/pelvis revealed 4x3.6x3cm irregular fluid collection of the left hepatic lobe consistent with hepatic abscess. LFTs were elevated above baseline but now wnl. He reports no hx of biliary surgery/instrumentation/disease. He has no recent travel outside the [place] and does not drink well water. He denies trauma/injury to the area. He is a diabetic with most recent A1C 8.1. He underwent CT-guided percutaneous cholecystostomy and left hepatic lobe abscess drainage catheter placement 05/03/20. Drain management per general surgery. Gallbladder cyst aspirate shows E. coli which suggests that acute cholecystitis was the cause of his hepatic abscess. WBC is increased to 16.0 today. Continue IV zosyn (initiated 05/03). IV metronidazole was discontinued on 05/06. General surgery is following and input is appreciated. There is no drainage from the percutaneous hepatic abscess drain. Repeat CT today per surgery. (2) Cholecystitis without calculus: Code(s): K81.9 - Cholecystitis, unspecified Status: Acute Assessment and Plan: Discussed with IR and the gallbladder appeared to have an abscess during CT-guided drain placement so a drain was placed there as well. 10 cc of turbid yellow fluid was aspirated and sent for gram stain and culture which shows E. coli. Appreciate general surgery input. He will need to leave the cholecystostomy drain in for 4 weeks. Cholangiogram will be arranged eventually. (3) Portal vein thrombosis: Code(s): I81 - Portal vein thrombosis Status: Acute Assessment and Plan: Visualized on CT abd/pelvis. He has a hx of VTE. Pylephlebitis was considered but felt less likely given findings of E. coli on gallbladder aspirate suggesting acute cholecystitis. Heparin drip was discontinued on 05/06 and Eliquis was initiated. Continue eliquis. (4) Acute kidney injury: Code(s): N17.9 - Acute kidney failure, unspecified Status: Acute Assessment and Plan: Cr at admission was 2.0 and BUN 33. His baseline Cr appears to be 1.6-1.8 on review of prior labs. Cr is 1.8 and BUN 23 today which is likely close to baseline. Continue to monitor BMP daily. Avoid nephrotoxins and renally dose medications. (5) Chronic anemia: Code(s): D64.9 - Anemia, unspecified Status: Chronic Assessment and Plan: Hemoglobin is 10.8 and Hct 32.0. He has chronic anemia and is on iron supplementation. Continue ferrous sulfate. Continue to monitor CBC daily. He needs to ensure he is up to date on his screening colonoscopy. (6) DM2 (diabetes mellitus, type 2): Code(s): E11.9 - Type 2 diabetes mellitus without complications Status: Chronic Assessment and Plan: Hemoglobin A1C was 8.1. Blood sugars were reviewed and are reasonably controlled. Continue basal insulin. Continue ACHS glucose monitoring, hypoglycemia protocol, and high dose sliding scale insulin. Continue to monitor closely. (7) Diabetic polyneuropathy associated with type 2 diabetes mellitus: Code(s): E11.42 - Type 2 diabetes mellitus with diabetic polyneuropathy Status: Chronic Assessment and Plan: Chronic. Continue gabapentin. (8) Dyslipidemia associated with type 2 diabetes mellitus: Code(s): E11.69 - Type 2 diabetes mellitus with other specified complication; E78.5 - Hyperlipidemia, unspecified Status: Chronic Assessment and Plan: Chronic. Continue rosuvastatin and omega-3 fatty acids. (9) Generalized anxiety disorder: Code(s): F41.1 - Generalized anxiety disorder Status: Chronic Assessment and Plan: Chronic with no acute issues. Continue hydroxyzine. (10) Hypothyroidism: Code(s): E03.9 - Hypothyroidism, unspecified Status: Acute Assessment and Plan: TSH elevated at 4
[2020-05-07 16:53] LABS: Glucose Point of Care 152 (65-105)
[2020-05-07 17:55] VITALS: BP 144/76; PULSE 88; RESP 12; TEMP 36.8; O2SAT 98
[2020-05-07 20:50] VITALS: BP 119/78; PULSE 77; RESP 16; TEMP 37.4; O2SAT 95
[2020-05-07 23:01] LABS: Glucose Point of Care 169 (65-105)
[2020-05-08 04:33] VITALS: BP 113/62; PULSE 70; RESP 16; TEMP 37.1; O2SAT 96
[2020-05-08 06:11] LABS: Basophils Percent Auto 0.2 % (0.2-1.2); Eosinophils Absolute Auto 0.5 K/mm3 (0-0.3); Eosinophils Percent Auto 3.2 % (0-4.4); Hematocrit 31.9 % (42.0-52.0); Hemoglobin 10.6 g/dL (14.0-18.0); Immature Granulocyte Absolute 0.24 K/mm3 (0.00-0.031); Immature Granulocyte Percent A 1.6 % (0-0.5); Lymphocytes Absolute Auto 1.62 K/mm3 (0.9-3.2); Lymphocytes Percent Auto 10.6 % (18.3-44.2); Mean Corpuscular HGB Conc 33.2 g/dl (32-36); Mean Corpuscular Hemoglobin 28.3 pg (26-34); Mean Corpuscular Volume 85.1 fl (80-100); Mean Platelet Volume 10.5 fl (7.4-10.4); Monocytes Percent Auto 6.2 % (2.6-8.5); Neutrophils Absolute Auto 11.9 K/mm3 (1.3-6.7); Neutrophils Percent Auto 78.2 % (45.5-73.1); Platelet Count Result 367 k/mm3 (150-375); Red Blood Count 3.75 M/mm3 (4.6-6.20); Red Cell Distribution Width 14.2 % (11.5-14.5); White Blood Count 15.3 K/mm3 (4.5-10.0)
[2020-05-08 06:19] LABS: Partial Thromboplastin Time 43.4 SECONDS (22.3-36.8)
[2020-05-08 06:32] LABS: Alanine Aminotransferase 41 U/L (4-50); Albumin Level 3.2 g/dL (3.5-5.1); Alkaline Phosphatase 168 U/L (38-126); Anion Gap 8 mmol/L (8-16); Aspartate Amino Transferase 27 U/L (17-59); Bilirubin,Total 0.5 mg/dL (0.2-1.3); Blood Urea Nitrogen 22 mg/dL (9-20); Calcium 8.2 mg/dL (8.4-10.2); Carbon Dioxide 22 mmol/L (22-30); Chloride 101 mmol/L (98-107); Estimated CRCL calculation 37 ml/min; Estimated Glomerular Filt Rate 39; Glucose 158 mg/dL (75-110); Potassium 4.6 mmol/L (3.4-5.0); Sodium 131 mmol/L (137-145)
[2020-05-08 07:48] LABS: Glucose Point of Care 162 (65-105)
[2020-05-08] MEDS: PANTOPRAZOLE 40 MG TABLET PO (08:23)
[2020-05-08] MEDS: APIXABAN 5 MG TABLET PO (08:23)
[2020-05-08] MEDS: FERROUS SULFATE 324 MG TABLET PO (08:23)
[2020-05-08] MEDS: OMEGA 3 POLYUNSAT FATTY ACIDS 1 GM CAP PO (08:23)
[2020-05-08] MEDS: ROSUVASTATIN 10 MG TABLET 40 MG PO (08:23)
[2020-05-08] MEDS: GABAPENTIN 300 MG CAPSULE PO (08:23)
[2020-05-08] MEDS: INSULIN GLARGINE (*BKC) 100 UNITS/ML 45 UNITS SUB-Q (08:24)
[2020-05-08] MEDS: VITAMIN B COMPLEX CAPSULE 1 CAP PO (08:24)
[2020-05-08 11:47] LABS: Glucose Point of Care 200 (65-105)
[2020-05-08 14:00] VITALS: BP 135/65; PULSE 80; RESP 14; TEMP 36.9; O2SAT 97
--- NOTE | 2020-05-08 17:01 | PC.NURSE ---
Detailed instructions with patient and on how to empty drain and document output. Graduated cylinder sent home with pt and for logging of output from drain to report to Dr. Arizmendi's office at follow up visit. Supplies and detailed instructions on how to change dressing. Pt and verbalized understanding
--- NOTE | 2020-05-09 07:41 | PM.PNGS ---
Progress Note: A&P Assessment and Plan (1) Abscess of liver: Code(s): K75.0 - Abscess of liver Status: Acute Assessment and Plan: CT reviewed, exam benign, no drainage for days, will dc drain, cont Augmentin for 10 days as outpt (2) Cholecystitis without calculus: Code(s): K81.9 - Cholecystitis, unspecified Status: Acute Assessment and Plan: cont lobo tube, plan for cholangiogram in 1 month Subjective Subjective Date/Time Seen: 05/08/20 11:00 pt feels good, wants to go home, no f/c, megan diet Review of Systems Constitutional: Constitutional: Denies body ache(s), Denies chills, Denies fatigue, Denies lethargy and Denies weakness Cardiovascular: Cardiovascular: Denies chest pain and Denies palpitations Respiratory: Respiratory: Denies dyspnea Gastrointestinal: Gastrointestinal: Denies abdominal pain, Denies constipation, Denies diarrhea, Denies nausea and Denies vomiting Exam Const: General: no acute distress Resp: Auscultation: clear to auscultation bilaterally Cardio: Rate: regular rate Rhythm: regular rhythm GI: Other: S, sl dist, NT, RUQ drain removed at bedside (no drainage), lobo tube drain bile Objective Data Vital Signs Vital Signs: Vital Signs - 24 hr 05/08/20 14:00 Temperature 36.9 C Pulse Rate 80 Respiratory Rate 14 Blood Pressure 135/65 Pulse Oximetry 97 Intake/Output Intake/Output: Intake & Output 05/06/20 05/07/20 05/08/20 05/09/20 23:59 23:59 23:59 23:59 Intake Total 3520 3440 1220 Output Total 2060 3620 1170 Balance 1460 -180 50 Meds/Results Radiology Results: ITS Impressions Head CT 05/02/20 15:05 IMPRESSION: 1. Old lacunar infarct in the right basal ganglia. Upper Quadrant Ultrasound 05/02/20 16:02 IMPRESSION: 1. New 3.4 cm complex cystic lesion in segment IVb of the liver which is new since the contrast enhanced CT one week prior which raises concern for hepatic abscess. Consider repeat contrast-enhanced CT. Line 2. 8 mm echogenic density at the neck of the gallbladder and favor a fold in the wall over polyp. Catheter Placement CT 05/03/20 16:45 IMPRESSION: 1. Successful CT-guided left hepatic lobe abscess drainage catheter placement. 2. Successful CT-guided cholecystostomy tube placement. 3. 10 mL fluid from the gallbladder was sent for aerobic, anaerobic and fungal cultures. 3. The catheter will be managed by Dr. Arizmendi. A catheter cholangiogram may be performed not less than 48 hours after tube placement if clinically indicated to assess cystic duct patency. If cholecystectomy is not eventually performed and the infectious episode has resolved, the tube may be removed over a guidewire, preferably not less than 3 weeks after placement to allow time for a mature catheter tract to form to prevent bile leakage and peritonitis. Abdomen/Pelvis CT 05/07/20 12:22 IMPRESSION: 1. Decrease in size of a now 3.2 x 2.8 x 2.4 similar gas and fluid-filled abscess in the left hepatic lobe post percutaneous abscess drain placement. 2. Percutaneous cholecystostomy tube in expected position within the decompressed gallbladder. 3. Tiny right pleural effusion. 4. Mild esophageal wall thickening consistent with esophagitis. 5. 3.7 cm infrarenal abdominal aortic aneurysm. Labs Labs: Laboratory Results - last 24 hr 05/08/20 05/08/20 07:45 11:41 POC Capillary Glucose 162 H 200 H Quality VTE Prophylaxis VTE prophylaxis: mechanical ordered and pharmacologic ordered (Eliquis)
--- NOTE | 2020-05-10 06:40 | PM.DS ---
DS: Admitting Diagnosis Admitting Diagnosis Admitting Diagnosis: Hepatic Abscess DS: Discharge Diagnosis Discharge Diagnosis (1) Abscess of liver: Code(s): K75.0 - Abscess of liver Status: Acute Assessment and Plan: CT abd/pelvis revealed 4x3.6x3cm irregular fluid collection of the left hepatic lobe consistent with hepatic abscess. LFTs were elevated above baseline but improved to normal limits. He underwent CT-guided percutaneous cholecystostomy and left hepatic lobe abscess drainage catheter placement on 05/03/20 by IR. Gallbladder cyst aspirate showed E. coli which suggests that acute cholecystitis was the cause of his hepatic abscess. He was started on IV Zosyn on 05/03/20. Also started on IV metronidazole which was discontinued on 05/06. He remained afebrile but did have increased leukocytosis, therefore repeat CT a/p was performed which showed decrease in size of left hepatic lobe abscess. He will continue PO augmentin for 10 days. There was minimal drainage from hepatic abscess drain and after 2 days of no drainage output, the drain was removed by Dr. Arizmendi. (2) Cholecystitis without calculus: Code(s): K81.9 - Cholecystitis, unspecified Status: Acute Assessment and Plan: Per discussion with IR, the gallbladder appeared to have an abscess during CT-guided drain placement, therefore a cholecystostomy drain was placed. 10 cc of turbid yellow fluid was aspirated and sent for gram stain and culture which showed E. coli. Blood cultures were negative. Cholecystostomy drain will remain in place for 3-4 weeks. Cholangiogram will be arranged eventually. He will follow up with Dr. Arizmendi in 2 weeks for evaluation of drain. He was educated on how to care for the drain at home. (3) Portal vein thrombosis: Code(s): I81 - Portal vein thrombosis Status: Acute Assessment and Plan: Visualized on CT abd/pelvis. He has a hx of VTE but was not currently on any form of anticoagulation. Pylephlebitis was considered but felt less likely given findings of E. coli on gallbladder aspirate suggesting acute cholecystitis. Heparin drip was discontinued on 05/06 and Eliquis was initiated. He will continue Eliquis. He was educated on this medication and will monitor for any signs or symptoms of bleeding. (4) Acute kidney injury: Code(s): N17.9 - Acute kidney failure, unspecified Status: Acute Assessment and Plan: Cr at admission was 2.0 and BUN 33. Baseline appears to be 1.6-1.8. Increased to 2.2 and then declined back to baseline with gentle IV fluids. Repeat BMP in 1 week. (5) Chronic anemia: Code(s): D64.9 - Anemia, unspecified Status: Chronic Assessment and Plan: He has chronic anemia and is on iron supplementation. H&H remained stable. He did not have any signs of active bleeding. Continue ferrous sulfate. He needs to ensure he is up to date on his screening colonoscopy. (6) DM2 (diabetes mellitus, type 2): Code(s): E11.9 - Type 2 diabetes mellitus without complications Status: Chronic Assessment and Plan: Hemoglobin A1C was 8.1. Blood sugars were reviewed daily, generally well controlled with mild elevation. Continue basal insulin and alogliptin. Recommended monitoring blood sugars TID at home. (7) Diabetic polyneuropathy associated with type 2 diabetes mellitus: Code(s): E11.42 - Type 2 diabetes mellitus with diabetic polyneuropathy Status: Chronic Assessment and Plan: Chronic. Continue gabapentin. (8) Dyslipidemia associated with type 2 diabetes mellitus: Code(s): E11.69 - Type 2 diabetes mellitus with other specified complication; E78.5 - Hyperlipidemia, unspecified Status: Chronic Assessment and Plan: Chronic. Continue rosuvastatin and omega-3 fatty acids. (9) Generalized anxiety disorder: Code(s): F41.1 - Generalized anxiety disorder Status: Chronic Ass
== END 2020-05-08 17:00 | disposition home or self-care (01) | DRG 444 ==
LOC: ANHED 18:50 → ANH3MED 23:38
PROVIDERS: Nurse Practitioner; Physician Assistant; Radiology Diagnostic Radiology; Surgery; Admitting Provider Family Medicine; Emergency Provider Emergency Medicine; PCP Internal Medicine; Visit Provider Physician Assistant
PROC: 0F9430Z Drainage of Gallbladder with Drainage Device, Percutaneous Approach (ICD-10-PCS; principal; 2020-05-03 15:00)
DX: K81.0 Acute cholecystitis (principal); K75.0 Abscess of liver; I81 Portal vein thrombosis; E87.1 Hypo-osmolality and hyponatremia; B96.20 Unspecified Escherichia coli [E. coli] as the cause of diseases classified elsewhere; D64.9 Anemia, unspecified; E11.42 Type 2 diabetes mellitus with diabetic polyneuropathy; F41.1 Generalized anxiety disorder; E11.69 Type 2 diabetes mellitus with other specified complication; E78.5 Hyperlipidemia, unspecified; K20.9 Esophagitis, unspecified; E03.9 Hypothyroidism, unspecified; I71.4 Abdominal aortic aneurysm, without rupture; I10 Essential (primary) hypertension; Z86.718 Personal history of other venous thrombosis and embolism; Z86.711 Personal history of pulmonary embolism; Z89.411 Acquired absence of right great toe; Z98.42 Cataract extraction status, left eye; Z98.41 Cataract extraction status, right eye
CPT/HCPCS: 36415; 70450; 71046; 74176; 74177; 75989; 76705; 80053; 80307; 81001; 82274; 82948; 83036; 83690; 83735; 84439; 84443; 84480; 85025; 85049; 85610; 85730; 87040; 87070; 87075; 87077; 87086; 87102; 87186; 87205; 87206; 96374; 96375; 99285; A9270; C1769; J0780; J1644; J1815; J1885; J2250; J2543; J3010; J7030; Q9967

== ENCOUNTER 2020-05-28 07:51 | Outpatient (CLI) | payer MEDICARE, SELFPAY ==
--- NOTE | ~2020-05-28 | XR_ITS ---
EXAMINATION: XR catheter cholangiogram DATE: 05/28/2020 08:20 INDICATION: Acute cholecystitis. TECHNIQUE: I injected the percutaneous cholecystostomy tube with Omnipaque 240 contrast and performed fluoroscopy. 6 images were obtained. Fluoroscopy exposure time was 0.2 minutes. COMPARISON: CT abdomen and pelvis 05/07/2020 FINDINGS: The cholecystostomy tube is in the gallbladder. There are gallstones in the gallbladder. Co ntrast passes to the common duct and duodenum. There is a 6 mm filling defect in the distal common du ct, consistent with a stone. IMPRESSION: 1. Patent bile ducts. 2. Choledocholithiasis and cholelithiasis. Reviewed, dictated and finalized at location A.
== END 2020-05-28 07:52 | disposition home or self-care (01) ==
PROVIDERS: PCP Internal Medicine; Visit Provider Surgery
DX: K81.9 Cholecystitis, unspecified (principal); K75.0 Abscess of liver; K80.70 Calculus of gallbladder and bile duct without cholecystitis without obstruction
CPT/HCPCS: 47531

== ENCOUNTER 2020-06-19 01:00 | Outpatient (CLI) | payer MEDICARE, SELFPAY ==
[2020-06-19 18:39] LABS: SARS-CoV-2 RNA PCR Negative
== END 2020-06-19 01:01 | disposition home or self-care (01) ==
LOC: ANHCOVIDDT 01:00
PROVIDERS: PCP Internal Medicine; Visit Provider Internal Medicine Gastroenterology
DX: Z01.812 Encounter for preprocedural laboratory examination (principal); Z20.828 Contact with and (suspected) exposure to other viral communicable diseases; R68.89 Other general symptoms and signs
CPT/HCPCS: 87635; C9803; U0003

== ENCOUNTER 2020-06-21 01:09 | Day surgery (SDC) | payer MEDICARE, SELFPAY ==
[2020-06-14 14:36] VITALS: BMI 27.5
[2020-06-21] VITALS (8 sets, daily range): BP systolic 110–131; BP diastolic 57–66; PULSE 60–73; RESP 12–22; TEMP 36.4–36.7; O2SAT 100
--- NOTE | ~2020-06-21 | XR_ITS ---
EXAMINATION: XR ERCP DATE: 06/21/2020 12:48 INDICATION: Choledocholithiasis TECHNIQUE: 18 intraoperative fluoroscopic images obtained during endoscopic retrograde cholangiopancr eatography (ERCP) are submitted for review. Total fluoroscopic time was 139.5 seconds. COMPARISON: None. FINDINGS: A cholecystostomy tube is noted. There is retrograde opacification of a normal caliber comm on bile duct. Fluoroscopic images demonstrate balloon sweeping of the common bile duct. IMPRESSION: 1. No biliary dilatation seen. Cholecystostomy. Please refer to the ERCP procedure note for additiona l details. Reviewed, dictated and finalized at location A. IMPRESSION: 1. No biliary dilatation seen. Cholecystostomy. Please refer to the ERCP proced ure note for additional details.
[2020-06-21] MEDS: LACTATED RINGERS 1,000 ML 150 ML IV CONT (10:39)
[2020-06-21 10:49] LABS: Glucose Point of Care 116 (65-105)
--- NOTE | 2020-06-21 11:56 | WPDANESEPPF ---
Anes - Initial Pre Proc Eval Procedure: Operation Date: 06/21/20 12:00 Proposed Procedures p Endoscopic Retro Cholangiopancreatogram - David Rizvi MD Date/Time: 06/21/20 11:56 Surgeon: David Rizvi MD Pre Op Diagnosis: Abcess Of Liver, Bile Duct Stones Patient Data Age: 75 Gender: M Height: 6 ft Weight: 95.2 kg Last Vital Signs Temp 98.0 F 06/21/20 10:25 Pulse 70 06/21/20 10:25 Resp 20 06/21/20 10:25 BP 125/59 L 06/21/20 10:25 Pulse Ox 100 06/21/20 10:25 Allergies Allergy/AdvReac Type Severity Reaction Status Date / Time oxycodone Allergy Unknown Vomiting Verified 06/21/20 10:23 Home Medications Medication Instructions Recorded Confirmed Type ferrous sulfate 325 mg (65 mg 325 mg PO DAILY 08/22/19 06/14/20 History iron) tablet gabapentin 300 mg capsule 300 mg PO DAILY 08/22/19 06/14/20 History hydroxyzine HCl 10 mg tablet 10 mg PO BID tablet 08/22/19 06/14/20 History omega-3 fatty acids 1,000 mg 2,000 mg PO DAILY 08/22/19 06/14/20 History capsule rosuvastatin 40 mg tablet 40 mg PO HS 08/22/19 06/14/20 History vitamin B complex 1 tablet PO DAILY 08/22/19 06/14/20 History alogliptin 6.25 mg tablet 12.5 mg PO DAILY 03/22/20 06/14/20 History insulin aspart U-100 100 unit/mL See Rx Instructions SUB-Q TID #15 03/26/20 06/14/20 Rx (3 mL) subcutaneous pen ml insulin glargine 100 unit/mL 40 unit SUB-Q DAILY ml 03/26/20 06/14/20 History subcutaneous solution apixaban [Eliquis] 5 mg PO BID #28 tablet 05/08/20 06/14/20 Rx amlodipine 10 mg tablet 10 mg PO BID 06/07/20 06/14/20 History cyanocobalamin (vitamin B-12) 5,000 mcg PO DAILY 06/07/20 06/14/20 History 5,000 mcg capsule Laboratory Tests 06/21/20 10:44 POC Capillary Glucose 116 mg/dl H mg/dl (65-105) Patient hx anesthesia problems: none Family hx anesthesia problems: none PMFSH Past Medical History Medical History Amputation toe 2nd toe on the right Anemia in chronic kidney disease Choledocholithiasis with obstruction Chronic anemia Dialysis patient Temporary DM2 (diabetes mellitus, type 2) DVT (deep venous thrombosis) Essential hypertension Generalized anxiety disorder Overweight (BMI 25.0-29.9) PE (pulmonary thromboembolism) Pulmonary emboli Bilaterally S/P ORIF (open reduction internal fixation) fracture Right hip Type 2 diabetes mellitus with diabetic peripheral angiopathy without gangrene Surgical History Surgical History H/O cataract extraction Bilaterally History of appendectomy History of tonsillectomy S/P IVC filter Which was removed due to complications and infection. Family History Family History Mother Natural with unknown cause Father Natural with unknown cause Social History Social History Social History: The patient lives with his . He has 2 step children. He retired from the [employer]. He served in [employer]. He has not had any biological children. 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 He is a full code. Lifelong nonsmoker. Does not use any alcohol or drugs. Smoking status: Never smoker Second hand tobacco smoke exposure: No Alcohol intake: never Substance use: never Substance use type: does not use Living arrangements: with family Gender identity (if verbalized by the patient): Male Spiritual care concerns: No Anes - Eval Final PreProcedure Day of Procedure 06/21/20 11:56 Patient weight: obese Heart: regular rate and rhythm Lungs: clear to auscultation Airway: Mallampati scale class III Neurological: alert and oriented Last oral intake: >/= 8 hours ASA classification: IV Emergent: no Anesthetic plan: proceed Anesthesia type and monitori
--- NOTE | 2020-06-21 12:12 | SUR.OPER ---
ERCP Scope 313 at bedside
--- NOTE | 2020-06-21 12:42 | WPDHPUPDATE1 ---
History and Physical Update Update Date/Time: 06/21/20 12:42 History and Physical has been reviewed, including an updated exam of the patient. There are NO changes in the patient's condition. Risks, benefits, and alternatives have been discussed and questions answered. Patient agrees to proceed with procedure.
[2020-06-21 13:20] LABS: Glucose Point of Care 117 (65-105)
--- NOTE | 2020-06-21 14:08 | SUR.PHASEII ---
1350 Emptied pt's drainage bag -50ml drk brown foul smelling liquid per pt request. Informed of this also at discharge at 1358. MMuethRN
== END 2020-06-21 13:58 | disposition home or self-care (01) ==
PROVIDERS: PCP Internal Medicine; Visit Provider Internal Medicine Gastroenterology
PROC: (CPT 43260; principal; 2020-06-21 12:00)
DX: R93.2 Abnormal findings on diagnostic imaging of liver and biliary tract (principal); K83.09 Other cholangitis; E11.22 Type 2 diabetes mellitus with diabetic chronic kidney disease; I12.0 Hypertensive chronic kidney disease with stage 5 chronic kidney disease or end stage renal disease; N18.6 End stage renal disease; Z99.2 Dependence on renal dialysis; D63.1 Anemia in chronic kidney disease; F41.1 Generalized anxiety disorder; E11.51 Type 2 diabetes mellitus with diabetic peripheral angiopathy without gangrene; Z86.718 Personal history of other venous thrombosis and embolism; Z86.711 Personal history of pulmonary embolism; Z79.01 Long term (current) use of anticoagulants; Z79.4 Long term (current) use of insulin; E66.9 Obesity, unspecified; Z68.28 Body mass index [BMI] 28.0-28.9, adult
CPT/HCPCS: 43262; 43264; 74329; J0330; J1100; J2405; J2704; J3010; J7120; Q9966

== ENCOUNTER 2020-09-30 06:12 | Emergency (ER) | payer MEDICARE, SELFPAY ==
--- NOTE | ~2020-09-30 | CT_ITS ---
EXAMINATION: CT abdomen pelvis w con EXAM DATE: 09/30/2020 07:33 INDICATION: Abdominal pain, nausea vomiting and diarrhea. TECHNIQUE: Spiral CT of the abdomen and pelvis was performed following intravenous injection of 100 m L Omnipaque 350. Axial, coronal and sagittal images were reviewed. The dose-length product (DLP) fo r this examination was 1041.84 mGy-cm. The exposure was tailored according to patient size (auto mA exposure control), and iterative reconstruction (ASIR) was used as additional dose reduction techniqu e. Comparison is made to prior examination from 05/07/2020. FINDINGS: Previously seen liver abscess has resolved. The liver, spleen, adrenal glands and pancreas are unremarkable. Gallbladder is unremarkable. No biliary obstruction. Portal and splenic veins a re patent. Kidneys enhance symmetrically. There is no hydronephrosis. There is a right renal 2.3 cm cyst, smaller cysts in the left kidney. The prostate is unremarkable. The bladder is collapsed at time of imaging limiting evaluation. There is no retroperitoneal or pelvic lymphadenopathy. There is moderate scattered arteriosclerotic disease. Infrarenal fusiform abdominal aortic aneurysm measuri ng up to 3.8 cm. The appendix is not positively visualized. There is no pericecal inflammatory change to suggest appe ndicitis. There is extensive descending and sigmoid colonic colonic diverticulosis. There is no erasmo cent inflammatory change to suggest diverticulitis. The stomach and small bowel are unremarkable. Duo denal diverticulum. There is expected amount of colonic stool. No free intraperitoneal gas. The h eart is normal in size. There are no pericardial or pleural effusions. The lung bases are unremarka ble. There are no osteoblastic or osteolytic lesions identified. There is right hip joint replaceme nt. IMPRESSION: 1. No acute intra-abdominal findings. 2. Colonic diverticulosis. 3. Mildly aneurysmal abdominal aorta. Reviewed, dictated and finalized at location A. [employer]PER[employer]
[2020-09-30 06:16] VITALS: BP 145/73; PULSE 72; RESP 16; TEMP 36.1; O2SAT 97
[2020-09-30 06:25] VITALS: BP 164/86; PULSE 64; RESP 14; O2SAT 93
--- NOTE | 2020-09-30 06:43 | ED.GENADULT ---
HPI - General Adult General Chief complaint: Abdominal Pain <Sean Arguello MD - Last Filed: 09/30/20 06:51> Stated complaint: abdominal pain <Sean Arguello MD - Last Filed: 09/30/20 06:51> Time Seen by Provider: 09/30/20 06:21 <Sean Arguello MD - Last Filed: 09/30/20 06:51> History of Present Illness HPI narrative: Patient is a 75-year-old male who presents ER with mid to lower abdominal pain. Burning nature. Bandlike over the entire lower abdomen. Woke up with pain at 3:30 PM. No urinary or GI symptoms outside of this. Patient has some increasing concern as patient few months ago had cholecystostomy tube related to acute cholecystitis. He then underwent ERCP with sphincterotomy for removal of debris. He has been asymptomatic in terms of his gallbladder. Patient is found no aggravating or alleviating factors. <Sean Arguello MD - Last Filed: 09/30/20 06:51> Related Data Home medications: Home Medications Medication Instructions Recorded Confirmed ferrous sulfate 325 mg (65 mg 325 mg PO DAILY 08/22/19 07/08/20 iron) tablet gabapentin 300 mg capsule 300 mg PO DAILY 08/22/19 07/08/20 hydroxyzine HCl 10 mg tablet 10 mg PO BID tablet 08/22/19 07/08/20 omega-3 fatty acids 1,000 mg 2,000 mg PO DAILY 08/22/19 07/08/20 capsule rosuvastatin 40 mg tablet 40 mg PO HS 08/22/19 07/08/20 vitamin B complex 1 tablet PO DAILY 08/22/19 07/08/20 alogliptin 6.25 mg tablet 12.5 mg PO DAILY 03/22/20 07/08/20 insulin glargine 100 unit/mL 40 unit SUB-Q DAILY ml 03/26/20 07/08/20 subcutaneous solution cyanocobalamin (vitamin B-12) 5,000 mcg PO DAILY 06/07/20 07/08/20 5,000 mcg capsule amlodipine 10 mg tablet 5 mg PO BID tablet 08/22/20 08/22/20 aspirin 81 mg PO DAILY 09/30/20 09/30/20 duloxetine mg PO 09/30/20 fluocinonide applic TOPICAL 09/30/20 lisinopril 10 mg PO DAILY 09/30/20 09/30/20 pantoprazole 40 mg PO HS 09/30/20 09/30/20 polyvinyl alcohol 1 drp LEFTEYE TID 09/30/20 09/30/20 tramadol 50 mg PO HS 09/30/20 09/30/20 trazodone 100 mg PO HS 09/30/20 09/30/20 <Sean Arguello MD - Last Filed: 09/30/20 06:51> Allergies/adverse reactions: Allergies Allergy/AdvReac Type Severity Reaction Status Date / Time oxycodone Allergy Unknown Vomiting Verified 09/30/20 06:26 <Sean Arguello MD - Last Filed: 09/30/20 06:51> Review of Systems Review of Systems: All systems reviewed & are unremarkable except as noted in HPI and below <Sean Arguello MD - Last Filed: 09/30/20 06:51> Constitutional: Constitutional: Denies chills, Denies fever(s) and Denies weakness <Sean Arguello MD - Last Filed: 09/30/20 06:51> ENT: Denies nasal congestion and Denies sore throat <Sean Arguello MD - Last Filed: 09/30/20 06:51> Cardiovascular: Cardiovascular: Denies chest pain and Denies radiating jaw, neck or arm pain <Sean Arguello MD - Last Filed: 09/30/20 06:51> Gastrointestinal: Gastrointestinal: Reports abdominal pain, Denies bloating, Denies heartburn, Denies diarrhea, Denies nausea and Denies vomiting <Sean Arguello MD - Last Filed: 09/30/20 06:51> Genitourinary: Genitourinary: Denies dysuria and Denies urinary frequency <Sean Arguello MD - Last Filed: 09/30/20 06:51> [facility] Past Medical History Medical History: Medical History Amputation toe 2nd toe on the right Anemia in chronic kidney disease Choledocholithiasis with obstruction Chronic anemia Dialysis patient Temporary DM2 (diabetes mellitus, type 2) DVT (deep venous thrombosis) Essential hypertension Generalized anxiety disorder Overweight (BMI 25.0-29.9) PE (pulmonary thromboembolism) Pulmonary emboli Bilaterally S/P ORIF (open reduction internal fixation) fracture Right hip Type 2 diabetes mellitus with diabetic peripheral angiopathy without gangrene <Sean Arguello MD - Last Filed: 09/30/20 06:51> Surgical Histo
[2020-09-30] MEDS: ONDANSETRON INJ 4 MG/2 ML VIAL IV PUSH (06:44)
[2020-09-30] MEDS: MORPHINE SULFATE (*CRX) 4 MG/ML INJ IV PUSH (06:44)
[2020-09-30 06:55] LABS: Basophils Percent Auto 0.4 % (0.2-1.2); Eosinophils Absolute Auto 0.4 K/mm3 (0-0.3); Eosinophils Percent Auto 3.6 % (0-4.4); Hematocrit 39.2 % (42.0-52.0); Hemoglobin 12.9 g/dL (14.0-18.0); Immature Granulocyte Absolute 0.09 K/mm3 (0.00-0.031); Immature Granulocyte Percent A 0.9 % (0-0.5); Lymphocytes Absolute Auto 2.96 K/mm3 (0.9-3.2); Lymphocytes Percent Auto 29.5 % (18.3-44.2); Mean Corpuscular HGB Conc 32.9 g/dl (32-36); Mean Platelet Volume 11.5 fl (7.4-10.4); Monocytes Absolute Auto 0.9 K/mm3 (0.1-0.6); Monocytes Percent Auto 8.6 % (2.6-8.5); Neutrophils Absolute Auto 5.7 K/mm3 (1.3-6.7); Platelet Count Result 205 k/mm3 (150-375); Red Blood Count 4.61 M/mm3 (4.6-6.20); Red Cell Distribution Width 14.2 % (11.5-14.5)
[2020-09-30 07:08] LABS: Alanine Aminotransferase 18 U/L (4-50); Albumin Level 4.1 g/dL (3.5-5.1); Alkaline Phosphatase 85 U/L (38-126); Anion Gap 5 mmol/L (8-16); Aspartate Amino Transferase 23 U/L (17-59); Bilirubin,Total 0.4 mg/dL (0.2-1.3); Blood Urea Nitrogen 26 mg/dL (9-20); Calcium 8.9 mg/dL (8.4-10.2); Carbon Dioxide 28 mmol/L (22-30); Chloride 104 mmol/L (98-107); Estimated CRCL calculation 40 ml/min; Estimated Glomerular Filt Rate 42; Glucose 197 mg/dL (75-110); Lipase 65 U/L (23-300); Potassium 4.3 mmol/L (3.4-5.0); Sodium 137 mmol/L (137-145)
[2020-09-30 07:21] VITALS: BP 145/77; PULSE 60; RESP 15; O2SAT 93
--- NOTE | 2020-09-30 07:24 | PC.NURSE ---
Pt to CT scan via stretcher.
[2020-09-30 07:40] LABS: Add Urine Microscopic? YES; Appearance Urine Clear (Clear); Bilirubin Urine Negative (Negative); Blood Urine Negative (Negative); Color Urine Yellow (Yellow); Glucose Urine UA 1+ mg/dL (Negative); Ketones Urine Negative (Negative); Leukocyte Esterase Ur Negative LEU/UL (Negative); Mucus Urine Rare /lpf; Nitrate Urine Negative (Negative); Protein Urine Negative (Negative); RBC Urine 0-2 /hpf (0-2); Specific Grav Ur 1.018 (1.001-1.035); Squamous Epithelial Cell Urine Occasional /hpf (Few); Urobilinogen Urine Negative mg/dL (<2.0)
[2020-09-30 08:21] VITALS: BP 154/78; PULSE 64; RESP 15; O2SAT 96
== END 2020-09-30 08:22 | disposition home or self-care (01) ==
PROVIDERS: Emergency Medicine; Emergency Provider Emergency Medicine; PCP Internal Medicine
DX: R10.32 Left lower quadrant pain (principal); R10.31 Right lower quadrant pain; E11.22 Type 2 diabetes mellitus with diabetic chronic kidney disease; I12.9 Hypertensive chronic kidney disease with stage 1 through stage 4 chronic kidney disease, or unspecified chronic kidney disease; N18.9 Chronic kidney disease, unspecified; Z86.718 Personal history of other venous thrombosis and embolism; E11.51 Type 2 diabetes mellitus with diabetic peripheral angiopathy without gangrene; D63.1 Anemia in chronic kidney disease; Z79.4 Long term (current) use of insulin; Z79.82 Long term (current) use of aspirin; Z89.421 Acquired absence of other right toe(s); E66.3 Overweight; Z68.29 Body mass index [BMI] 29.0-29.9, adult; Z86.711 Personal history of pulmonary embolism; F41.1 Generalized anxiety disorder; K57.90 Diverticulosis of intestine, part unspecified, without perforation or abscess without bleeding; I71.4 Abdominal aortic aneurysm, without rupture
CPT/HCPCS: 36415; 74177; 80053; 81001; 83690; 85025; 96374; 96375; 99284; J2270; J2405; Q9967

== ENCOUNTER 2020-10-02 14:49 | Inpatient (IN) | payer MEDICARE, SELFPAY ==
[2020-10-02] VITALS (29 sets, daily range): BP systolic 63–119; BP diastolic 43–84; PULSE 85–136; RESP 16–37; TEMP 37.2–38.2; O2SAT 93–100
--- NOTE | ~2020-10-02 | US_ITS ---
US right upper quadrant DATE: 10/02/2020 17:48 INDICATION: Right upper quadrant abdominal pain TECHNIQUE: Real-time and color flow imaging of liver, pancreas, gallbladder areas COMPARISON: 10/02/2020 CT chest abdomen pelvis FINDINGS: There is echogenic sludge within the gallbladder lumen. There is gallbladder wall thickenin g. There are focal fluid collections within or immediately adjacent to the gallbladder wall. There is increased vascularity adjacent to the gallbladder suggesting inflammation. The findings are suspicio us for acute cholecystitis. Technologist reports that sonographic Hernandez's sign is negative. No hepatic space-occupying mass lesion is evident. The pancreas is obscured by bowel. Common bile duct measures 4.7 mm.. IMPRESSION: Gallbladder sludge, gallbladder wall thickening and edema and increased vascularity. Find ings suggest acute cholecystitis Reviewed, dictated and finalized at [facility] Reviewed, dictated and finalized at [facility]. TRIC METER TESTER IMPRESSION: Gallbladder sludge, gallbladder wall thickening and edema and incre ased vascularity. Findings suggest acute cholecystitis
--- NOTE | ~2020-10-02 | CT_ITS ---
EXAMINATION: CT chest abdomen pelvis wo con DATE: 10/02/2020 16:23 INDICATION: Hypoxia. Tachycardia. History of pulmonary embolism. Abdominal pain. TECHNIQUE: Computed tomography (CT) of the chest, abdomen, and pelvis was performed without intraveno us contrast (due to low GFR). Automated exposure control and iterative reconstruction technique were employed. Exam dose: 1113.74 mGy-cm total exam DLP. COMPARISON: 09/30/2020 CT abdomen pelvis 05/02/2022 view chest FINDINGS: CHEST CT: This noncontrast examination is not sensitive for detection of pulmonary emboli Normal size and homogeneous density of the thyroid gland. No hilar or mediastinal mass lesion or lymphadenopathy is detected The posterior aortic arch measures up to 35.6 mm dimension, consistent with mild thoracic aortic aneu rysm. There is aortic and great vessel calcification and severe coronary artery calcification. Normal heart size. No pericardial or pleural effusion. Small probable right apical scar. There is prominent discoid atelectasis and/or scarring in both lower lobes, most prominent at the daniel g bases. ABDOMEN/PELVIS CT: Some apparent fatty change of the liver is suggested in the pericholecystic area. No hepatic space-oc cupying mass lesion is evident. The gallbladder is present. No bile duct or pancreatic duct dilatatio n. No pancreatic mass lesion or calcification. Normal splenic size. Normal morphology of the adrenal glands. Approximately 2.2 cm mid right renal cyst. Multiple up to 1.4 cm left renal cysts are demonstrated to better advantage on 09/30/2020 CT abdomen e xamination with IV contrast material. 3.5 x 6 mm calcification at the right renal hilum is most likely arterial. Small probable arterial calcification in the lower pole of the left kidney. No ureteral calculus or hydroureteronephrosis. Infrarenal abdominal aortic aneurysm measuring up to approximately 3.8 cm maximal dimension. There is calcification and ectasia of the common iliac arteries. No intraperitoneal or retroperitoneal or pelvic mass lesion or adenopathy or ascites is evident. There are numerous diverticula in the sigmoid and descending colon; no evidence of diverticulitis. No bowel obstruction, bowel wall thickening, pneumatosis or intraperitoneal free air. The urinary bladder is unremarkable. Mild prostate enlargement and calcification. Diffuse idiopathic skeletal hyperostosis of the thoracic spine. No suspicious osteolytic or osteoblastic lesions. Status post right hip arthroplasty. Osteoarthritis of the left hip joint. IMPRESSION: Mild thoracic aortic aneurysm Up to 3.8 cm infrarenal abdominal aortic aneurysm Bilateral renal cysts Diverticulosis of left colon Reviewed, dictated and finalized at [facility] Reviewed, dictated and finalized at [facility]. VERY AIDE
--- NOTE | 2020-10-02 14:51 | ECG_ITS ---
Measurements Intervals [place] Rate: 120 P: -9 NE: 128 QRS: -27 QRSD: 84 T: 62 QT: 300 QTc: 424 Interpretive Statements SINUS TACHYCARDIA LEFT VENTRICULAR HYPERTROPHY AND ST-T CHANGE BORDERLINE R WAVE PROGRESSION, ANTERIOR LEADS INFERIOR INFARCT, AGE INDETERMINATE ABNORMAL ECG Electronically Signed On 10-02-2020 15:09:35 RECEPTIONIST NURSE by Abner Cassidy D.O.
[2020-10-02 15:29] LABS: Hematocrit 38.1 % (42.0-52.0); Hemoglobin 12.7 g/dL (14.0-18.0); Mean Corpuscular HGB Conc 33.3 g/dl (32-36); Mean Corpuscular Hemoglobin 28.7 pg (26-34); Mean Platelet Volume 11.4 fl (7.4-10.4); Platelet Count Result 158 k/mm3 (150-375); Red Blood Count 4.43 M/mm3 (4.6-6.20); Red Cell Distribution Width 14.3 % (11.5-14.5); White Blood Count 18.5 K/mm3 (4.5-10.0)
--- NOTE | 2020-10-02 15:30 | ED.WEAKNESS ---
HPI - Weakness General Chief complaint: Weakness <Lynn Mckenna PA-C - Last Filed: 10/02/20 19:01> Stated complaint: fever, AMS <Lynn Mckenna PA-C - Last Filed: 10/02/20 19:01> Time Seen by Provider: 10/02/20 15:09 <Lynn Mckenna PA-C - Last Filed: 10/02/20 19:01> Source: patient and family () <HA Lu Last Filed: 10/02/20 19:01> Mode of arrival: wheelchair <AH Lu Last Filed: 10/02/20 19:01> Limitations: no limitations <HA Lu Last Filed: 10/02/20 19:01> History of Present Illness HPI Narrative: This is a 75 year old male that presents to the ER for abdominal pain x 3 days. Reports the pain is in the lower abdomen and burning in nature. The pain is intermittent. Reports today they noted fever today as well as a rash to his abdomen and back. Patient reports generalized weakness. Denies cough, chest pain, shortness of breath, nausea, vomiting, dysuria or hematuria. <HA Lu Last Filed: 10/02/20 19:01> Related Data Home medications: Home Medications Medication Instructions Recorded Confirmed ferrous sulfate 325 mg (65 mg 325 mg PO DAILY 08/22/19 10/02/20 iron) tablet gabapentin 300 mg capsule 300 mg PO DAILY 08/22/19 10/02/20 hydroxyzine HCl 10 mg tablet 10 mg PO BID tablet 08/22/19 10/02/20 omega-3 fatty acids 1,000 mg 2,000 mg PO DAILY 08/22/19 10/02/20 capsule rosuvastatin 40 mg tablet 40 mg PO HS 08/22/19 10/02/20 vitamin B complex 1 tablet PO DAILY 08/22/19 10/02/20 alogliptin 6.25 mg tablet 12.5 mg PO DAILY 03/22/20 10/02/20 insulin glargine 100 unit/mL 40 unit SUB-Q DAILY ml 03/26/20 10/02/20 subcutaneous solution cyanocobalamin (vitamin B-12) 5,000 mcg PO DAILY 06/07/20 10/02/20 5,000 mcg capsule amlodipine 10 mg tablet 5 mg PO BID tablet 08/22/20 10/02/20 aspirin 81 mg PO DAILY 09/30/20 10/02/20 duloxetine mg PO 09/30/20 10/02/20 fluocinonide applic TOPICAL 09/30/20 10/02/20 lisinopril 10 mg PO DAILY 09/30/20 10/02/20 pantoprazole 40 mg PO HS 09/30/20 10/02/20 polyvinyl alcohol 1 drp LEFTEYE TID 09/30/20 10/02/20 tramadol 50 mg PO HS 09/30/20 10/02/20 trazodone 100 mg PO HS 09/30/20 10/02/20 <Lynn Mckenna PA-C - Last Filed: 10/02/20 19:01> Allergies/Adverse reactions: Allergies Allergy/AdvReac Type Severity Reaction Status Date / Time oxycodone Allergy Unknown Vomiting Verified 10/02/20 14:56 <Lynn Mckenna PA-C - Last Filed: 10/02/20 19:01> Review of Systems Review of Systems: Narrative: CONSTITUTIONAL: Reports fever ENT: Denies congestion, sore throat CARDIOVASCULAR: Denies chest pain, or edema. RESPIRATORY: Denies cough or dyspnea. GASTROINTESTINAL: Reports abdominal pain. Denies nausea, vomiting, or diarrhea. GENITOURINARY: Denies dysuria or hematuria. NEUROLOGIC: Reports generalized weakness. <Lynn Mckenna PA-C - Last Filed: 10/02/20 19:01> All systems reviewed & are unremarkable except as noted in HPI and below <Lynn Mckenna PA-C - Last Filed: 10/02/20 19:01> [facility] Past Medical History Medical History: Medical History (Updated 10/02/20 @ 21:13 by Brooklyn King DO) Abscess of liver 06/2020 Anemia in chronic kidney disease Chronic anemia Diabetic neuropathy Dialysis patient May 2018 temporary dialysis due to acute kidney injury following hip replacement surgery complicated by femoral artery pseudoaneurysm due to trauma to the artery from a screw with subsequent transferred to [place]. DM2 (diabetes mellitus, type 2) DVT (deep venous thrombosis) Essential hypertension Generalized anxiety disorder Overweight (BMI 25.0-29.9) PE (pulmonary thromboembolism) 05/09/2018 Pulmonary emboli Bilaterally Type 2 diabetes mellitus with diabetic peripheral angiopathy without gangrene <Lynn Mckenna PA-C - Last Filed: 10/02/20 19:01> Surgical History Surgical History: Surgical History (Updated 10/02/20 @ 21:02 by Sh
[2020-10-02 15:40] LABS: Lactic Acid Reflex 1.3 mmol/L (0.7-2.1)
[2020-10-02 15:41] LABS: Alanine Aminotransferase 29 U/L (4-50); Albumin Level 3.9 g/dL (3.5-5.1); Alkaline Phosphatase 129 U/L (38-126); Anion Gap 8 mmol/L (8-16); Aspartate Amino Transferase 33 U/L (17-59); Bilirubin,Total 1.1 mg/dL (0.2-1.3); Blood Urea Nitrogen 34 mg/dL (9-20); Calcium 8.6 mg/dL (8.4-10.2); Carbon Dioxide 25 mmol/L (22-30); Chloride 101 mmol/L (98-107); Estimated CRCL calculation 26 ml/min; Estimated Glomerular Filt Rate 25; Glucose 181 mg/dL (75-110); Potassium 3.9 mmol/L (3.4-5.0); Sodium 134 mmol/L (137-145)
[2020-10-02 15:43] LABS: Eosinophils Absolute Manual 0.74 K/mm3 (0.02-0.5); Eosinophils Percent Manual 4 % (0-4); Lymphocytes Absolute Manual 0.37 K/mm3 (1.1-4.5); Monocytes Absolute Manual 0.55 K/mm3 (0.1-0.90); Monocytes Percent Manual 3 % (3-9); Neutrophils Percent Manual 91 % (46-73); Total Cells Counted 100
[2020-10-02 15:44] LABS: Platelet Estimate Adequate (Adequate)
[2020-10-02] MEDS: SODIUM CHLORIDE 0.9% IV 1,000 ML 999 ML IV CONT ×3 (15:54→18:30)
[2020-10-02 15:59] LABS: INR 1.7
[2020-10-02 16:00] LABS: Partial Thromboplastin Time 49.9 SECONDS (22.3-36.8)
--- NOTE | 2020-10-02 16:30 | PC.NURSE ---
pt unable to urinate, pt noted to have decreased BP and increased HR while standing. Not wanting to be cathed at this time
[2020-10-02 16:40] LABS: Lactate Dehydrogenase 553 U/L (313-618); Lipase 51 U/L (23-300)
[2020-10-02 16:49] LABS: NT Pro B Type Natriuretic Pept 313 PG/ML (5-100)
--- NOTE | 2020-10-02 17:20 | PC.NURSE ---
pt resting, is aware of urine request. unable to give at this time
--- NOTE | 2020-10-02 18:33 | PC.NURSE ---
went in to get urines specimen. pt continues to sleep, unable to get specimen provider aware
--- NOTE | 2020-10-02 20:38 | PM.IMHP ---
H&P: HPI History of Present Illness Date/Time: 10/03/20 01:00 Chief Complaint: abdominal pain Narrative: Chandan Shetty is a 75 year old male with a past medical history of hypertension, diabetes mellitus, chronic kidney disease and prior cholecystitis with cholecystectomy tube with hepatic abscess 06/2020 who presented to the ER with abdominal pain for 3 days. the patient reports that he had mid abdominal pain for the last 3 days. he reports that the pain is like a band around the middle of his abdomen. pain is a 5/10 in intensity at its worst. The pain was worse with any movement or palpation of his abdomen. He had absolutely no appetite. He could eat but he could only Only eat a few bites before he had early satiety. He did not have any nausea or vomiting. He had not noticed any fevers or chills. However when he arrived at the ER he had a fever 100.7? He denies any diarrhea, constipation, hematochezia or melena. His last bowel movement was on the in the morning of the . He denies any dysuria, hematuria or changes in urinary frequency. He has not had any recent ill contacts and denies any upper respiratory symptoms. he had a negative influenza screen in the ER. He has also tested negative for COVID on the day of admission. Review of Systems Review of Systems: Narrative: 12 systems were reviewed with pertinent positives and negatives per HPI. Except as documented in the HPI, all other systems were reviewed and are negative. [facility] Past Medical History Medical History (Updated 10/02/20 @ 21:13 by Brooklyn King DO) Abscess of liver 06/2020 Anemia in chronic kidney disease Chronic anemia Diabetic neuropathy Dialysis patient May 2018 temporary dialysis due to acute kidney injury following hip replacement surgery complicated by femoral artery pseudoaneurysm due to trauma to the artery from a screw with subsequent transferred to [place]. DM2 (diabetes mellitus, type 2) DVT (deep venous thrombosis) Essential hypertension Generalized anxiety disorder Overweight (BMI 25.0-29.9) PE (pulmonary thromboembolism) 05/09/2018 Pulmonary emboli Bilaterally Type 2 diabetes mellitus with diabetic peripheral angiopathy without gangrene Surgical History Surgical History (Updated 10/02/20 @ 21:02 by Brooklyn King DO) Amputation toe 2nd toe on the right H/O cataract extraction Bilaterally History of appendectomy History of tonsillectomy Pseudoaneurysm of femoral artery following procedure Following hip surgery with concomitant abdominal aortic aneurysm with open repair by vascular surgery with concomitant placement of IVC filter 05/09/2018 S/P ERCP 06/21/2020 due to cholangitis with hepatic abscess noted on CT 04/2020 with cholecystostomy tube placed S/P IVC filter Placed in 05/09/2018 due to PE IVC filter was subsequently removed due to concerns for infection. S/P ORIF (open reduction internal fixation) fracture Right hip with complicated course including femoral artery pseudoaneurysm, Klebsiella a cauda UTI due to urinary retention, DVT, pulmonary embolism, and open vascular repair with IVC filter placement Family History Family History Mother Natural with unknown cause Father Natural with unknown cause Other Diabetes mellitus Hypertension Social History Social History (Updated 10/02/20 @ 21:07 by Brooklyn King DO) Social History: The patient lives with his . He has 2 step children. He retired from the [employer]. He served in [employer]. He has not had any biological children. 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 He is a full code. Lifelong nonsmoker. Does not use any alcohol or drugs. Smoking status: Never smoker Second hand tobacco smoke exposure: No Alcohol intake: never Substance use: never Substance use type: does not use Gender identity (if verbalized by the patient): Male Spiritua
[2020-10-02 21:12] LABS: Add Urine Microscopic? YES; Appearance Urine Cloudy (Clear); Bilirubin Urine Negative (Negative); Blood Urine 2+ (Negative); Color Urine Yellow (Yellow); Glucose Urine UA Negative (Negative); Ketones Urine Negative (Negative); Leukocyte Esterase Ur Negative LEU/UL (Negative); Mucus Urine Rare /lpf; Nitrate Urine Negative (Negative); Protein Urine 2+ mg/dL (Negative); Specific Grav Ur 1.027 (1.001-1.035); Squamous Epithelial Cell Urine Rare /hpf (Few)
[2020-10-02 22:27] LABS: SARS-CoV-2 RNA PCR Negative
[2020-10-03] VITALS (13 sets, daily range): BP systolic 103–137; BP diastolic 54–95; PULSE 75–115; RESP 12–20; TEMP 36.3–38; O2SAT 94–100; BMI 30.1
--- NOTE | 2020-10-03 01:05 | ADMGEN ---
This patient, Chandan Shetty, was admitted to IMU Room 214-01 at 0035 from the Emergency Department. Patient/family oriented to hospital policies and general routines including ID bracelet, bed and alarms, visiting hours, pain management, procedures, bathroom and other care routines, personal items, smoking policy, room service/diet, and visiting hours. Information on how to activate the Rapid Response Team has been discussed. Patient/Family are encouraged to report perceived risks to care and to ask questions if they do not understand what they are told or what they should do.
[2020-10-03] MEDS: SODIUM CHLORIDE 0.9% IV 1,000 ML 125 ML IV CONT ×2 (01:32→18:52)
[2020-10-03 05:01] LABS: Basophils Percent Auto 0.1 % (0.2-1.2); Eosinophils Absolute Auto 0.5 K/mm3 (0-0.3); Eosinophils Percent Auto 3.8 % (0-4.4); Hematocrit 33.7 % (42.0-52.0); Immature Granulocyte Absolute 0.08 K/mm3 (0.00-0.031); Immature Granulocyte Percent A 0.6 % (0-0.5); Immature Platelet Fraction Pct 5.2 % (0.9-11.2); Lymphocytes Absolute Auto 0.88 K/mm3 (0.9-3.2); Lymphocytes Percent Auto 6.1 % (18.3-44.2); Mean Corpuscular HGB Conc 32.6 g/dl (32-36); Mean Corpuscular Hemoglobin 28.1 pg (26-34); Mean Corpuscular Volume 86.2 fl (80-100); Mean Platelet Volume 11.1 fl (7.4-10.4); Monocytes Absolute Auto 0.9 K/mm3 (0.1-0.6); Monocytes Percent Auto 6.2 % (2.6-8.5); Neutrophils Absolute Auto 11.9 K/mm3 (1.3-6.7); Neutrophils Percent Auto 83.2 % (45.5-73.1); Platelet Count Result 115 k/mm3 (150-375); Red Blood Count 3.91 M/mm3 (4.6-6.20); Red Cell Distribution Width 14.6 % (11.5-14.5); White Blood Count 14.3 K/mm3 (4.5-10.0)
[2020-10-03 05:29] LABS: Alanine Aminotransferase 35 U/L (4-50); Albumin Level 3.2 g/dL (3.5-5.1); Alkaline Phosphatase 104 U/L (38-126); Anion Gap 2 mmol/L (8-16); Aspartate Amino Transferase 35 U/L (17-59); Bilirubin,Total 0.7 mg/dL (0.2-1.3); Blood Urea Nitrogen 33 mg/dL (9-20); Calcium 7.7 mg/dL (8.4-10.2); Carbon Dioxide 27 mmol/L (22-30); Chloride 108 mmol/L (98-107); Estimated CRCL calculation 26 ml/min; Estimated Glomerular Filt Rate 25; Glucose 134 mg/dL (75-110); Potassium 4.1 mmol/L (3.4-5.0); Sodium 137 mmol/L (137-145)
[2020-10-03 06:00] LABS: Glucose Point of Care 133 (65-105)
[2020-10-03 09:17] LABS: INR 1.6; Prothrombin Time 19.8 Seconds (11.1-14.7)
[2020-10-03 09:18] LABS: Partial Thromboplastin Time 48.9 SECONDS (22.3-36.8)
--- NOTE | 2020-10-03 09:32 | PM.CNGS ---
Assessment and Plan Assessment and plan (1) Acute cholecystitis: Code(s): K81.0 - Acute cholecystitis Status: Acute Assessment and Plan: CT and ultrasound reviewed and discussed with the patient. He appears to have evidence of acute cholecystitis, which is supported by his clinical exam. He is still very tender on exam, but his abdominal pain has improved. This appears to be the source of his sepsis and he will ultimately need a cholecystectomy. He seems to be clinically improving already with current management. We would recommend to continue with IV antibiotics for now and try to allow time for the inflammation to improve. If we were to proceed more urgently with a cholecystectomy, then he is at a higher risk for requiring conversion to an open cholecystectomy. If we give this some time with the antibiotics and conservative measures, then he will be less likely to require conversion to an open procedure. I discussed this with the patient and he agrees with this plan. We will allow him to try a low fat diet today and continue to hold his Eliquis. If he is unable to tolerate a diet or has a change in his clinical course, then we will need to consider proceeding with a cholecystectomy more urgently. We will continue to monitor the patient with serial abdominal exams and labs. Thank you for allowing us to see the patient in consultation and we will continue to follow along with you. (2) Sepsis: Qualifiers: Acute renal failure type: unspecified Sepsis acute organ dysfunction status: with acute organ dysfunction Sepsis type: sepsis due to unspecified organism Severe sepsis acute organ dysfunction type: acute renal failure Severe sepsis shock status: without septic shock Qualified Code(s): A41.9 - Sepsis, unspecified organism; R65.20 - Severe sepsis without septic shock; N17.9 - Acute kidney failure, unspecified Code(s): A41.9 - Sepsis, unspecified organism Status: Acute Assessment and Plan: Sepsis criteria met on admission with leukocytosis, tachycardia, and fever. Source appears to be the gallbladder. Blood cultures drawn with preliminary results of gram negative bacilli x 2, will await final results. Continue broad-spectrum IV antibiotics. Has received fluid resuscitation. BP improved. Continue to monitor labs. (3) Xdory-gc-orynmhn kidney injury: Qualifiers: Acute renal failure type: unspecified Chronic kidney disease stage: stage 3 (moderate) Chronic kidney disease stage 3 subtype: stage 3b (GFR 30-44) Qualified Code(s): N17.9 - Acute kidney failure, unspecified; N18.32 - Chronic kidney disease, stage 3b Code(s): N17.9 - Acute kidney failure, unspecified; N18.9 - Chronic kidney disease, unspecified Status: Acute Assessment and Plan: Creatinine 2.5 on admission. Likely related to above. Management per Hospitalist. Continue to monitor labs. (4) Type 2 diabetes mellitus with hyperglycemia: Qualifiers: Diabetes mellitus physical therapy professor insulin use: with physical therapy professor use Qualified Code(s): E11.65 - Type 2 diabetes mellitus with hyperglycemia; Z79.4 - retail stock clerk (current) use of insulin Code(s): E11.65 - Type 2 diabetes mellitus with hyperglycemia Status: Acute Assessment and Plan: Management per Hospitalist. May restart home meds as appropriate, we are starting him on a diet. (5) Anticoagulant long-term use: Code(s): Z79.01 - retail stock clerk (current) use of anticoagulants Status: Acute Assessment and Plan: Hold Eliquis for now in case of need for surgical intervention. (6) Portal vein thrombosis: Code(s): I81 - Portal vein thrombosis Status: Acute Assessment and Plan: Found on previous hospitalization in May 2020 and started on Eliquis at that time. He also has a history of VTE, but was not previously on chronic anticoagulation for this. Hold Eliquis for now. (7) Essential hypertension: Code(s): I10 - Ess
[2020-10-03 13:04] LABS: Glucose Point of Care 132 (65-105)
--- NOTE | 2020-10-03 16:06 | PM.IMPN ---
Progress Note: A&P Assessment and Plan (1) Sepsis: Qualifiers: Acute renal failure type: unspecified Sepsis acute organ dysfunction status: with acute organ dysfunction Sepsis type: sepsis due to unspecified organism Severe sepsis acute organ dysfunction type: acute renal failure Severe sepsis shock status: without septic shock Qualified Code(s): A41.9 - Sepsis, unspecified organism; R65.20 - Severe sepsis without septic shock; N17.9 - Acute kidney failure, unspecified Code(s): A41.9 - Sepsis, unspecified organism Status: Acute Assessment and Plan: 10/03/20 16:06 Patient is 75-year-old male presented emergency department with a 2 day history abdominal pain and fever his pain is more located in lower abdomen, to further patient had a CT scan of abdomen which showed some apparent fatty change of the liver is suggested in the pericholecystic area possibly cholecystitis to further evaluate patient also had a abdominal ultrasound which showed similar finding gallbladder sludge, gallbladder wall thickening and edema and increased vascularity. Findings suggest acute cholecystitis, upon arrival patient was tachycardia tachypnea fever leukocytosis and most likely source of infection cholecystitis patient started on Zosyn suggesting patient has sepsis, patient was seen by surgery service recommending conservative management with antibiotics and monitor overnight with NPO if symptoms do not improve may need a cholecystectomy tomorrow, however patient is also taking Eliquis which is on hold, today patient states is feeling much better compared to when he arrived not as feverish abdominal pain is better too denies any nausea or vomiting. Patient had lunch is able to hold it (2) Acute cholecystitis: Code(s): K81.0 - Acute cholecystitis Status: Acute Assessment and Plan: Plan is above (3) Dsbgo-mn-frbwdik kidney injury: Qualifiers: Acute renal failure type: unspecified Chronic kidney disease stage: stage 3 (moderate) Chronic kidney disease stage 3 subtype: stage 3b (GFR 30-44) Qualified Code(s): N17.9 - Acute kidney failure, unspecified; N18.32 - Chronic kidney disease, stage 3b Code(s): N17.9 - Acute kidney failure, unspecified; N18.9 - Chronic kidney disease, unspecified Status: Acute Assessment and Plan: Most likely secondary dehydration will gently hydrate the patient and monitor (4) Maculopapular rash, generalized: Code(s): R21 - Rash and other nonspecific skin eruption Status: Acute Assessment and Plan: Clinically stable (5) Type 2 diabetes mellitus with hyperglycemia: Qualifiers: Diabetes mellitus termite treater helper insulin use: with intermediate use Qualified Code(s): E11.65 - Type 2 diabetes mellitus with hyperglycemia; Z79.4 - termite treater helper (current) use of insulin Code(s): E11.65 - Type 2 diabetes mellitus with hyperglycemia Status: Acute Assessment and Plan: Will continue home regimen and monitor Additional Plan Acute cholecystitis noted on gallbladder ultrasound. Patient id sepsis criteria with tachycardia, tachypnea, fever and leukocytosis. He does have associated acute on chronic renal failure. He has been admitted to the IMU due to hypotension that responded well to volume resuscitation. He will be continued on Zosyn and IV fluid hydration. Tylenol has been ordered as needed for pain and fever. Surgery and Gastroenterology have been consulted. Will repeat CMP and CBC in a.m.. Will monitor renal function closely. Blood cultures and urine cultures are pending. The patient is currently NPO. He will be placed on moderate dose sliding scale insulin with Accu-Cheks and hypoglycemia protocol. Patient is on chronic anticoagulation. Eliquis is on hold as the patient may need surgical intervention Subjective Date/time seen: 10/03/20 16:06 Patient is 75-year-old male presented emergency department with a 2 day history ab
--- NOTE | 2020-10-03 16:18 | WPDGICN ---
Assessment and Plan Assessment and plan (1) Acute cholecystitis: Code(s): K81.0 - Acute cholecystitis Status: Acute Assessment and Plan: clinically he has cholecystitis, doing better with antibiotics and surgery on board- will require interval cholecystectomy after antibiotics but if persistent symptoms then more urgent liver enzymes normal, ERCP by me with no more stones and clear bile duct, no need to proceed with another one (2) Epigastric abdominal pain: Code(s): R10.13 - Epigastric pain Status: Acute Assessment and Plan: from cholecystitis, on medical treatment and better (3) Sepsis: Qualifiers: Acute renal failure type: unspecified Sepsis acute organ dysfunction status: with acute organ dysfunction Sepsis type: sepsis due to unspecified organism Severe sepsis acute organ dysfunction type: acute renal failure Severe sepsis shock status: without septic shock Qualified Code(s): A41.9 - Sepsis, unspecified organism; R65.20 - Severe sepsis without septic shock; N17.9 - Acute kidney failure, unspecified Code(s): A41.9 - Sepsis, unspecified organism Status: Acute Assessment and Plan: improving, continue with antibiotics (4) Type 2 diabetes mellitus with hyperglycemia: Qualifiers: Diabetes mellitus alf insulin use: with alf use Qualified Code(s): E11.65 - Type 2 diabetes mellitus with hyperglycemia; Z79.4 - snf (current) use of insulin Code(s): E11.65 - Type 2 diabetes mellitus with hyperglycemia Status: Acute (5) Anticoagulant long-term use: Code(s): Z79.01 - superintendent container terminal (current) use of anticoagulants Status: Acute Assessment and Plan: for his heart condition, now on hold in case he may need surgery GI Consult Note Consult date/time: 10/03/20 16:18 Reason for consult: abdominal pain, n/v, cholecystitis HPI: Chandan Shetty is a 75 year old male with history of insulin-dependent diabetes mellitus, chronic kidney disease, hypertension, and anemia. He was admitted to the hospital late April 2020with a left hepatic lobe abscess and acute cholecystitis, treated with IV antibiotics and had placement of a percutaneous abscess drain, as well as placement of a percutaneous cholecystostomy tube. Also had a cholangiogram done through the cholecystostomy tube. that showed a common bile duct stone and I was involved in his care, I performed ERCP with sphincterotomy on 06/21/2020, no stones, sludge, or debris with clear bile duct. He has seen Dr. Arizmendi and he wanted to wait for interval cholecystectomy until talking to his family. He came here with new onset of epigastric abdominal pain associated with nausea and vomiting. He also had fever at home and came to ER. CT scan of the chest, abdomen, and pelvis showed some fatty changes of the liver in the pericholecystic area. Abdominal ultrasound was done and showed gallbladder sludge, gallbladder wall thickening and edema, and increased vascularity, suggesting acute cholecystitis. Labs white blood cell count of 18,000, creatinine 2.5 with normal LFTs. He was admitted, started on iv antibiotics and now is feeling better today after medical treatment, no much of pain now. COVID test negative. Review of Systems Constitutional: Constitutional: Reports chills Eyes: Eyes: Reports no additional eye complaints ENT: Reports system reviewed and no additional complaints, except as documented Cardiovascular: Cardiovascular: Denies chest pain Respiratory: Respiratory: Denies dyspnea Gastrointestinal: Gastrointestinal: Reports abdominal pain, Reports nausea and Reports vomiting Genitourinary: Genitourinary: Denies urinary frequency Musculoskeletal: Musculoskeletal: Denies neck pain Integumentary/Breasts: Skin/Breast: Denies dry skin Neurologic: Denies headache(s) Psychiatric: Psychiatric: Denies behavioral changes PMFSH Past Medical History Medical History (Review
[2020-10-03 18:00] LABS: Glucose Point of Care 176 (65-105)
[2020-10-03] MEDS: DICYCLOMINE HCL 10 MG CAPSULE 20 MG PO ×2 (18:54→20:47)
[2020-10-03] MEDS: hydrOXYzine HCL 10 MG TABLET PO (18:54)
[2020-10-03] MEDS: ROSUVASTATIN 10 MG TABLET 40 MG PO (20:46)
[2020-10-03] MEDS: traZODone HCL 50 MG TABLET 100 MG PO (20:46)
[2020-10-03] MEDS: traMADol HCL (*CRX) 50 MG TABLET PO (20:47)
[2020-10-03] MEDS: PANTOPRAZOLE 40 MG TABLET PO (20:47)
[2020-10-04] VITALS: BP 122/58; PULSE 90; RESP 20; TEMP 36.8; O2SAT 92
[2020-10-04 00:10] LABS: Glucose Point of Care 215 (65-105)
[2020-10-04] MEDS: INSULIN ASPART (*BKC) 100 UNITS/ML SUB-Q (01:04)
[2020-10-04] MEDS: SODIUM CHLORIDE 0.9% IV 1,000 ML 125 ML IV CONT ×2 (03:11→11:30)
[2020-10-04 04:00] VITALS: BP 123/55; PULSE 79; RESP 20; TEMP 36.8; O2SAT 93
[2020-10-04 04:56] LABS: Basophils Percent Auto 0.1 % (0.2-1.2); Eosinophils Absolute Auto 0.7 K/mm3 (0-0.3); Eosinophils Percent Auto 6.7 % (0-4.4); Hematocrit 31.3 % (42.0-52.0); Hemoglobin 10.3 g/dL (14.0-18.0); Immature Granulocyte Absolute 0.05 K/mm3 (0.00-0.031); Immature Granulocyte Percent A 0.5 % (0-0.5); Immature Platelet Fraction Pct 5.4 % (0.9-11.2); Lymphocytes Absolute Auto 0.68 K/mm3 (0.9-3.2); Lymphocytes Percent Auto 6.9 % (18.3-44.2); Mean Corpuscular HGB Conc 32.9 g/dl (32-36); Mean Corpuscular Hemoglobin 27.8 pg (26-34); Mean Corpuscular Volume 84.6 fl (80-100); Mean Platelet Volume 11.6 fl (7.4-10.4); Monocytes Absolute Auto 0.9 K/mm3 (0.1-0.6); Monocytes Percent Auto 9.3 % (2.6-8.5); Neutrophils Absolute Auto 7.5 K/mm3 (1.3-6.7); Neutrophils Percent Auto 76.5 % (45.5-73.1); Platelet Count Result 111 k/mm3 (150-375); Red Cell Distribution Width 14.4 % (11.5-14.5); White Blood Count 9.9 K/mm3 (4.5-10.0)
[2020-10-04 05:14] LABS: Alanine Aminotransferase 35 U/L (4-50); Alkaline Phosphatase 140 U/L (38-126); Anion Gap 5 mmol/L (8-16); Aspartate Amino Transferase 35 U/L (17-59); Bilirubin,Total 0.5 mg/dL (0.2-1.3); Blood Urea Nitrogen 28 mg/dL (9-20); Calcium 7.6 mg/dL (8.4-10.2); Carbon Dioxide 21 mmol/L (22-30); Chloride 110 mmol/L (98-107); Estimated CRCL calculation 34 ml/min; Estimated Glomerular Filt Rate 31; Glucose 142 mg/dL (75-110); Potassium 3.8 mmol/L (3.4-5.0); Sodium 136 mmol/L (137-145)
[2020-10-04 08:23] VITALS: BP 127/64; PULSE 77; RESP 20; TEMP 36.2; O2SAT 94
[2020-10-04] MEDS: DICYCLOMINE HCL 10 MG CAPSULE 20 MG PO ×2 (09:16→14:48)
[2020-10-04] MEDS: GABAPENTIN 300 MG CAPSULE PO (09:17)
[2020-10-04] MEDS: DULoxetine HCL 20 MG CAPSULE.DR PO (09:17)
[2020-10-04] MEDS: lisinopriL 10 MG TABLET PO (09:18)
[2020-10-04] MEDS: hydrOXYzine HCL 10 MG TABLET PO (09:18)
[2020-10-04 11:37] LABS: Glucose Point of Care 159 (65-105)
--- NOTE | 2020-10-04 11:51 | PM.PNGS ---
Progress Note: A&P Assessment and Plan (1) Acute cholecystitis: Code(s): K81.0 - Acute cholecystitis Status: Acute Assessment and Plan: improving c abx, conservative mgmt, cont low fat diet, if megan ok to dc home c po abx x 10 days, f/u in 1 wk to setup interval cholecystectomy (2) Sepsis: Qualifiers: Acute renal failure type: unspecified Sepsis acute organ dysfunction status: with acute organ dysfunction Sepsis type: sepsis due to unspecified organism Severe sepsis acute organ dysfunction type: acute renal failure Severe sepsis shock status: without septic shock Qualified Code(s): A41.9 - Sepsis, unspecified organism; R65.20 - Severe sepsis without septic shock; N17.9 - Acute kidney failure, unspecified Code(s): A41.9 - Sepsis, unspecified organism Status: Acute Assessment and Plan: see above, would switch to po abx and dc if megan diet Subjective Subjective Date/Time Seen: 10/04/20 11:51 feels much better today, megan low fat diet, no abd pain Review of Systems Review of Systems: All systems reviewed & are unremarkable except as noted in HPI and below Exam Const: General: cooperative, comfortable and no acute distress Resp: Effort & Inspection: normal respiratory effort Auscultation: clear to auscultation bilaterally Cardio: Jugular venous distension: no JVD Rate: regular rate Rhythm: regular rhythm GI: Inspection: normal to inspection and non-distended GI Palp: Yes Soft to palpation, No Tenderness to palpation present (GI) and No Guarding due to palpation present (GI) Other: soft, NT, ND Objective Data Vital Signs Vital Signs: Vital Signs - 24 hr 10/03/20 12:00 10/03/20 14:00 10/03/20 15:19 Temperature 36.8 C 38.0 C H Pulse Rate 79 84 Respiratory Rate 12 Blood Pressure 133/66 Pulse Oximetry 100 10/03/20 15:49 10/03/20 16:00 10/03/20 20:00 Temperature 37.1 C 38.0 C H 36.8 C Pulse Rate 115 H 98 Respiratory Rate 12 20 Blood Pressure 103/54 L 137/95 H Pulse Oximetry 94 97 10/04/20 00:00 10/04/20 04:00 10/04/20 08:23 Temperature 36.8 C 36.8 C 36.2 C L Pulse Rate 90 79 77 Respiratory Rate 20 20 20 Blood Pressure 122/58 L 123/55 L 127/64 Pulse Oximetry 92 93 94 Intake/Output Intake/Output: Intake & Output 10/01/20 10/02/20 10/03/20 10/04/20 23:59 23:59 23:59 23:59 Intake Total 3150 1540 2400 Output Total 790 475 Balance 3150 750 1925 Meds/Results Medications: Active Medications Generic Name Dose Route Start Last Admin Trade Name Freq PRN Reason Stop Dose Admin Artificial Tears 1 drop 10/03/20 09:00 10/04/20 11:30 Artificial Tears Op Soln 15 Ml Bottle LEFT EYE Not Given TID MARILYN Aspirin 81 mg 10/04/20 09:00 10/04/20 09:17 Aspirin 81 Mg Chewable Tablet PO Not Given DAILY [facility] Cyanocobalamin 5,000 mcg 10/04/20 09:00 10/04/20 09:17 Cyanocobalamin 1,000 Mcg Tablet PO Not Given DAILY [facility] Dextrose 12.5 gm 10/02/20 21:13 Dextrose 50% 25 Gm/50 Ml Syringe IV PUSH PRN PRN Hypoglycemia Protocol Dicyclomine HCl 20 mg 10/03/20 17:00 10/04/20 09:16 Dicyclomine Hcl 10 Mg Capsule PO 20 mg QID MARILYN Administration Duloxetine HCl 20 mg 10/04/20 09:00 10/04/20 09:17 Duloxetine Hcl 20 Mg Capsule.Dr PO 20 mg QAM MARILYN Administration Ferrous Sulfate 324 mg 10/04/20 09:00 10/04/20 09:17 Ferrous Sulfate 324 Mg Tablet PO Not Given DAILY [facility] Fish Oil 2 gm 10/04/20 09:00 10/04/20 09:18 [place] 3 Polyunsat Fatty Acids 1 Gm Cap PO Not Given DAILY MARILYN Gabapentin 300 mg 10/04/20 09:00 10/04/20 09:17 Gabapentin 300 Mg Capsule PO 300 mg DAILY MARILYN Administration Glucagon 1 mg 10/02/20 21:13 Glucagon For Inj 1 Mg Vial IM PRN PRN Hypoglycemia Protocol Glucose 15 gm 10/02/20 21:13 Glucose Oral Gel 15 Gm Of Glucse In 37.5 Gm Tube PO PRN PRN Hypoglycemia Protocol Hydroxyzine HCl 10 mg 10/03/20
[2020-10-04 12:37] VITALS: BP 122/62; PULSE 73; RESP 20; TEMP 36.2; O2SAT 96
--- NOTE | 2020-10-04 13:34 | PM.IMPN ---
Progress Note: A&P Assessment and Plan (1) Sepsis: Qualifiers: Acute renal failure type: unspecified Sepsis acute organ dysfunction status: with acute organ dysfunction Sepsis type: sepsis due to unspecified organism Severe sepsis acute organ dysfunction type: acute renal failure Severe sepsis shock status: without septic shock Qualified Code(s): A41.9 - Sepsis, unspecified organism; R65.20 - Severe sepsis without septic shock; N17.9 - Acute kidney failure, unspecified Code(s): A41.9 - Sepsis, unspecified organism Status: Acute Assessment and Plan: Probably related to acute cholecystitis surgery was consulted continue broad-spectrum IV antibiotics (2) Acute cholecystitis: Code(s): K81.0 - Acute cholecystitis Status: Acute Assessment and Plan: Surgery consult conservative management with IV antibiotic IV fluid versus surgical intervention pending final recommendation from surgery (3) [id number] kidney injury: Qualifiers: Acute renal failure type: unspecified Chronic kidney disease stage: stage 3 (moderate) Chronic kidney disease stage 3 subtype: stage 3b (GFR 30-44) Qualified Code(s): N17.9 - Acute kidney failure, unspecified; N18.32 - Chronic kidney disease, stage 3b Code(s): N17.9 - Acute kidney failure, unspecified; N18.9 - Chronic kidney disease, unspecified Status: Acute Assessment and Plan: Most likely secondary dehydration give IV fluid monitor (4) Maculopapular rash, generalized: Code(s): R21 - Rash and other nonspecific skin eruption Status: Acute Assessment and Plan: Monitor probably related to sepsis (5) Type 2 diabetes mellitus with hyperglycemia: Qualifiers: 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 insulin use: with detention use Qualified Code(s): E11.65 - Type 2 diabetes mellitus with hyperglycemia; Z79.4 - senior care (current) use of insulin Code(s): E11.65 - Type 2 diabetes mellitus with hyperglycemia Status: Acute Assessment and Plan: Will continue home regimen and monitor Additional Plan GI was consulted no evidence of bile duct obstruction or ascending cholangitis Subjective Date/time seen: 10/04/20 13:34 Interval history: Patient seen and examined Patient feels weak abdominal pain has improved Patient denies fever headache chest pain shortness of breath I am seeing the patient for abdominal pain Exam Narrative: Exam Narrative: Alert Chest no wheeze crackles Abdomen nontender nondistended CVS S1 + S2 Negative Lower extremity edema r Objective Data Vital Signs Vital Signs: Vital Signs - 24 hr 10/03/20 14:00 10/03/20 15:19 10/03/20 15:49 Temperature 100.4 F H 98.7 F Pulse Rate 84 Respiratory Rate Blood Pressure Pulse Oximetry 10/03/20 16:00 10/03/20 20:00 10/04/20 00:00 Temperature 100.4 F H 98.2 F 98.2 F Pulse Rate 115 H 98 90 Respiratory Rate 12 20 20 Blood Pressure 103/54 L 137/95 H 122/58 L Pulse Oximetry 94 97 92 10/04/20 04:00 10/04/20 08:23 10/04/20 12:37 Temperature 98.2 F 97.2 F L 97.2 F L Pulse Rate 79 77 73 Respiratory Rate 20 20 20 Blood Pressure 123/55 L 127/64 122/62 Pulse Oximetry 93 94 96 Intake/Output Intake/Output: Intake & Output 10/01/20 10/02/20 10/03/20 10/04/20 23:59 23:59 23:59 23:59 Intake Total 3150 1540 2690 Output Total 790 475 Balance 3150 670 2215 Meds/Results Medications: Active Medications Generic Name Dose Route Start Last Admin Trade Name Freq PRN Reason Stop Dose Admin Artificial Tears 1 drop 10/03/20 09:00 10/04/20 11:30 Artificial Tears Op Soln 15 Ml Bottle LEFT EYE Not Given TID MARILYN Aspirin 81 mg 10/04/20 09:00 10/04/20 09:17 Aspirin 81 Mg Chewable Tablet PO Not Given DAILY MARILYN Cyanocobalamin 5,000 mcg 10/04/20 09:00 10/04/20 09:17 Cyanocobalamin 1,000 Mcg Tablet PO Not Given DAILY MARILYN Dextrose 12.5 gm 10/02/20 21:13 Dextrose 50
--- NOTE | 2020-10-04 15:29 | PC.NURSE ---
This patient, Chandan Shetty, was transferred to [facility] on 10/04/20 at 1534. Personal belongings sent with patient. Report given to ELVA Rodrigez. Appropriate documentation sent with patient.
--- NOTE | 2020-10-04 15:37 | PC.NURSE ---
Transfer patient received from IMU per bed. Report received from ELVA Rodrigues.
--- NOTE | 2020-10-04 15:40 | PM.DS ---
DS: Admitting Diagnosis Admitting Diagnosis Admitting Diagnosis: abd pain DS: Discharge Diagnosis Discharge Diagnosis (1) Sepsis: Qualifiers: Acute renal failure type: unspecified Sepsis acute organ dysfunction status: with acute organ dysfunction Sepsis type: sepsis due to unspecified organism Severe sepsis acute organ dysfunction type: acute renal failure Severe sepsis shock status: without septic shock Qualified Code(s): A41.9 - Sepsis, unspecified organism; R65.20 - Severe sepsis without septic shock; N17.9 - Acute kidney failure, unspecified Code(s): A41.9 - Sepsis, unspecified organism Status: Acute Assessment and Plan: Probably related to acute cholecystitis surgery was consulted continue broad-spectrum antibiotics for one more week as per surgery ok to dc (2) Acute cholecystitis: Code(s): K81.0 - Acute cholecystitis Status: Acute Assessment and Plan: Surgery consult conservative management oral abx follow up with surgery in one week (3) Ihtkl-we-ctgnigt kidney injury: Qualifiers: Acute renal failure type: unspecified Chronic kidney disease stage: stage 3 (moderate) Chronic kidney disease stage 3 subtype: stage 3b (GFR 30-44) Qualified Code(s): N17.9 - Acute kidney failure, unspecified; N18.32 - Chronic kidney disease, stage 3b Code(s): N17.9 - Acute kidney failure, unspecified; N18.9 - Chronic kidney disease, unspecified Status: Acute Assessment and Plan: Most likely secondary dehydration resolved (4) Maculopapular rash, generalized: Code(s): R21 - Rash and other nonspecific skin eruption Status: Acute Assessment and Plan: resolved Monitor probably related to sepsis (5) Type 2 diabetes mellitus with hyperglycemia: Qualifiers: Diabetes mellitus 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 terminal 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 insulin use: with 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 terminal operator use Qualified Code(s): E11.65 - Type 2 diabetes mellitus with hyperglycemia; Z79.4 - director long term care (current) use of insulin Code(s): E11.65 - Type 2 diabetes mellitus with hyperglycemia Status: Acute Assessment and Plan: Will continue home regimen and monitor DS: Summary Hospital Course Hospital Course: Patient was admitted with abdominal pain was found to have acute cholecystitis and sepsis treated with broad-spectrum IV antibiotics surgery was consulted was surgery approved discharge today follow-up as outpatient patient will be discharged on oral antibiotic plan for cholecystectomy as outpatient Time Spent with Patient Time attestation: Total time spent providing and/or coordinating discharge services: Exam Narrative: Exam Narrative: Alert Chest no wheeze crackles Abdomen nontender nondistended CVS S1 + S2 Negative Lower extremity edema r DS: Data Data Completed and Pending Labs on day of discharge: Labs from last 24 hours 10/04/20 10/04/20 10/04/20 11:13 04:20 04:20 WBC 9.9 RBC 3.70 L Hgb 10.3 L Hct 31.3 L MCV 84.6 MCH 27.8 MCHC 32.9 RDW 14.4 Plt Count 111 L MPV 11.6 H Immature Gran % (Auto) 0.5 Neut % (Auto) 76.5 H Lymph % (Auto) 6.9 L [place] % (Auto) 9.3 H Eos % (Auto) 6.7 H Baso % (Auto) 0.1 L Lymph # (Auto) 0.68 L [place] # (Auto) 0.9 H Eos # (Auto) 0.7 H Baso # (Auto) 0.0 Abs Immat Gran (auto) 0.05 H Absolute Neuts (auto) 7.5 H Absolute Nucleated RBC 0.0 Nucleated RBC % 0.0 % Immature Plt Fraction 5.4 Sodium 136 L Potassium 3.8 Chloride 110 H Carbon Dioxide 21 L Anion Gap 5 L BUN 28 H Creatinine 2.10 H Estim Creat Clear Calc 34 Estimated GFR 31 L Glucose 142 H POC Capillary Glucose 159 H Calcium 7.6 L Total Bilirubin 0.5 AST 35 ALT 35 Alkaline Phosphatase 140 H Total Protein 6.0 L Albumin 3.0 L 10/04/20 10/03/20 00:03 17:57 WBC RBC Hgb Hct MCV MCH MCHC RDW Plt Count MPV Immature Gran % (Auto) N
[2020-10-04 15:42] VITALS: BP 135/65; PULSE 72; RESP 18; TEMP 37.2; O2SAT 93
== END 2020-10-04 17:00 | disposition home or self-care (01) | DRG 872 ==
LOC: ANHED 18:51 → ANHIMU 10-03 10:32 → ANH3MED 10-04 15:38 → ANHIMU 10-08 15:57
PROVIDERS: Internal Medicine; Physician Assistant; Surgery; Admitting Provider Family Medicine; Emergency Provider Emergency Medicine; PCP Internal Medicine; Visit Provider Internal Medicine
DX: A41.9 Sepsis, unspecified organism (principal); K81.0 Acute cholecystitis; N17.9 Acute kidney failure, unspecified; Z20.822 Contact with and (suspected) exposure to COVID-19; R65.20 Severe sepsis without septic shock; E11.22 Type 2 diabetes mellitus with diabetic chronic kidney disease; N18.32 Chronic kidney disease, stage 3b; I12.9 Hypertensive chronic kidney disease with stage 1 through stage 4 chronic kidney disease, or unspecified chronic kidney disease; E86.0 Dehydration; R21 Rash and other nonspecific skin eruption; E11.65 Type 2 diabetes mellitus with hyperglycemia; E11.51 Type 2 diabetes mellitus with diabetic peripheral angiopathy without gangrene; E11.42 Type 2 diabetes mellitus with diabetic polyneuropathy; D63.1 Anemia in chronic kidney disease; F41.1 Generalized anxiety disorder; Z86.711 Personal history of pulmonary embolism; Z86.718 Personal history of other venous thrombosis and embolism; Z79.4 Long term (current) use of insulin; Z89.421 Acquired absence of other right toe(s); Z98.42 Cataract extraction status, left eye; Z98.41 Cataract extraction status, right eye; Z90.49 Acquired absence of other specified parts of digestive tract; Z79.01 Long term (current) use of anticoagulants
CPT/HCPCS: 36415; 71250; 74176; 74177; 76705; 80053; 81001; 82728; 82948; 83605; 83615; 83690; 83880; 85025; 85055; 85610; 85730; 87040; 87077; 87086; 87186; 93005; 96374; 96375; 99284; 99291; A9270; C9803; J0131; J1815; J2270; J2405; J2543; J7030; Q9967; U0003; U0005

== ENCOUNTER → 2020-10-11 03:08 | Outpatient (CLI) | payer MEDICARE, SELFPAY ==
[2020-10-11 18:10] LABS: SARS-CoV-2 RNA PCR Negative
== END ==
PROVIDERS: PCP Internal Medicine; Visit Provider Surgery
DX: Z01.812 Encounter for preprocedural laboratory examination (principal); Z20.822 Contact with and (suspected) exposure to COVID-19
CPT/HCPCS: C9803; U0003; U0005

== ENCOUNTER 2020-10-11 08:25 | Outpatient (CLI) | payer MEDICARE, SELFPAY ==
--- NOTE | 2020-10-11 08:45 | ECG_ITS ---
Measurements Intervals [place] Rate: 70 P: 10 NV: 181 QRS: -21 QRSD: 98 T: 9 QT: 392 QTc: 423 Interpretive Statements SINUS RHYTHM VOLTAGE CRITERIA FOR LVH INFERIOR INFARCT, AGE INDETERMINATE ABNORMAL ECG Electronically Signed On 10-11-2020 10:20:40 DEMURRAGE CLERK by Abner Cassidy D.O.
[2020-10-11 09:24] LABS: Amylase 111 U/L (30-110)
== END 2020-10-11 08:26 | disposition home or self-care (01) ==
PROVIDERS: PCP Internal Medicine; Referring Provider Anesthesiology; Visit Provider Surgery
DX: K81.0 Acute cholecystitis (principal); I10 Essential (primary) hypertension; Z01.818 Encounter for other preprocedural examination; R94.31 Abnormal electrocardiogram [ECG] [EKG]
CPT/HCPCS: 36415; 82150; 86850; 86900; 86901; 93005; C9803; U0003; U0005

== ENCOUNTER 2020-10-14 01:49 | Day surgery (SDC) | payer MEDICARE, SELFPAY ==
[2020-10-10 14:51] VITALS: BMI 29.9
[2020-10-14] VITALS (7 sets, daily range): BP systolic 127–139; BP diastolic 71–79; PULSE 62–84; RESP 14–20; TEMP 37.3; O2SAT 91–97
--- NOTE | 2020-10-14 08:13 | WPDANESEPPF ---
Anes - Initial Pre Proc Eval Procedure: Operation Date: 10/14/20 14:15 Proposed Procedures p Laparoscopic Cholecystectomy, Possible Open - Evelina Arizmendi MD <Gustavo Martinez MD - Last Filed: 10/17/20 08:57> Date/Time: 10/14/20 08:13 <Gustavo Martinez MD - Last Filed: 10/17/20 08:57> Surgeon: Evelina Arizmendi MD <Gustavo Martinez MD - Last Filed: 10/17/20 08:57> Pre Op Diagnosis: Chronic Cholecystitis <Gustavo Martinez MD - Last Filed: 10/17/20 08:57> Patient Data Age: 75 Gender: M Height: 1.83 m Weight: 100.24 kg <Gustavo Martinez MD - Last Filed: 10/17/20 08:57> Allergies Allergy/AdvReac Type Severity Reaction Status Date / Time oxycodone AdvReac Unknown Nausea Verified 10/14/20 13:58 <Gustavo Martinez MD - Last Filed: 10/17/20 08:57> Home Medications Medication Instructions Recorded Confirmed Type ferrous sulfate 325 mg (65 mg 325 mg PO DAILY 08/22/19 10/14/20 History iron) tablet gabapentin 300 mg capsule 300 mg PO DAILY 08/22/19 10/14/20 History hydroxyzine HCl 10 mg tablet 10 mg PO BID tablet 08/22/19 10/14/20 History omega-3 fatty acids 1,000 mg 2,000 mg PO DAILY 08/22/19 10/14/20 History capsule rosuvastatin 40 mg tablet 40 mg PO HS 08/22/19 10/14/20 History vitamin B complex 1 tablet PO DAILY 08/22/19 10/14/20 History alogliptin 6.25 mg tablet 12.5 mg PO DAILY 03/22/20 10/14/20 History insulin aspart U-100 100 unit/mL See Rx Instructions SUB-Q TID #15 03/26/20 10/14/20 Rx (3 mL) subcutaneous pen ml insulin glargine 100 unit/mL 40 unit SUB-Q DAILY ml 03/26/20 10/14/20 History subcutaneous solution Eliquis 5 mg PO BID #28 tablet 05/08/20 10/14/20 Rx cyanocobalamin (vitamin B-12) 5,000 mcg PO DAILY 06/07/20 10/14/20 History 5,000 mcg capsule amlodipine 10 mg tablet 5 mg PO QAM tablet 08/22/20 10/14/20 History aspirin 81 mg PO DAILY 09/30/20 10/14/20 History fluocinonide 1 applic TOPICAL DAILY 09/30/20 10/14/20 History pantoprazole 40 mg PO HS 09/30/20 10/14/20 History acetaminophen [Tylenol] 325 mg PO Q6H PRN #20 tablet 10/04/20 10/10/20 Rx ondansetron HCl [Zofran] 4 mg PO Q8H PRN #20 tablet 10/04/20 10/10/20 Rx hydrocodone-acetaminophen 1 tablet PO Q6H PRN #20 tablet 10/14/20 Rx <Gustavo Martinez MD - Last Filed: 10/17/20 08:57> Patient hx anesthesia problems: none <Álvaro Villalobos MD - Last Filed: 10/14/20 13:06> Family hx anesthesia problems: none <Álvaro Villalobos MD - Last Filed: 10/14/20 13:06> [facility] Past Medical History Medical History: Medical History Abscess of liver 06/2020 Anemia in chronic kidney disease Chronic anemia Diabetic neuropathy Dialysis patient May 2018 temporary dialysis due to acute kidney injury following hip replacement surgery complicated by femoral artery pseudoaneurysm due to trauma to the artery from a screw with subsequent transferred to [place]. DM2 (diabetes mellitus, type 2) Hemoglobin A1c 03/16/2020 DVT (deep venous thrombosis) Essential hypertension Generalized anxiety disorder Overweight (BMI 25.0-29.9) PE (pulmonary thromboembolism) 05/09/2018 Type 2 diabetes mellitus with diabetic peripheral angiopathy without gangrene <Gustavo Martinez MD - Last Filed: 10/17/20 08:57> Surgical History Surgical History: Surgical History Amputation toe 2nd toe on the right H/O cataract extraction Bilaterally History of appendectomy Open appendectomy History of tonsillectomy Pseudoaneurysm of femoral artery following procedure Following hip surgery with concomitant abdominal aortic aneurysm with open repair by vascular surgery with concomitant placement of IVC filter 05/09/2018 S/P ERCP 06/21/2020 due to CBD stone seen on cholecystostomy tube cholangiogram as an outpatient. No stones/sludge/debri found during ERCP. S/P IVC filter Placed in
[2020-10-14] MEDS: ACETAMINOPHEN 500 MG TABLET 1000 MG PO (12:51)
[2020-10-14] MEDS: LACTATED RINGERS 1,000 ML 30 ML IV CONT ×2 (12:55→14:53)
[2020-10-14] MEDS: KETOROLAC 15 MG/ML VIAL (*BKC) IV PUSH (13:02)
[2020-10-14 13:05] LABS: Glucose Point of Care 115 (65-105)
--- NOTE | 2020-10-14 13:14 | WPDHPUPDATE1 ---
History and Physical Update Update Date/Time: 10/14/20 13:14 History and Physical has been reviewed, including an updated exam of the patient. There are NO changes in the patient's condition. Risks, benefits, and alternatives have been discussed and questions answered. Patient agrees to proceed with procedure.
[2020-10-14] MEDS: ceFAZolin 2 GM/D5W 50 ML 2 GM/50 ML BAG IVPB (13:33)
[2020-10-14] MEDS: BUPIVACAINE/EPINEPHRINE 0.5% 30 ML VIAL INFILTRATE (13:57)
--- NOTE | 2020-10-14 15:02 | P.OP_ITS ---
Procedure Note - Detailed Date of procedure: 10/14/20 Pre-op diagnosis: Chronic Cholecystitis Post-op diagnosis: same Procedure performed: laparoscopic cholecystectomy Description of procedure: The patient was taken to the operating room placed in the supine position. After adequate induction of general anesthesia, the patient was prepped and draped in normal sterile fashion. A time-out was then performed to verify the patient's identity as well as the procedure being performed. I then made a 5 mm incision in the infraumbilical region. Through this, a Veress needle was placed into the peritoneal cavity and CO2 gas was then insufflated. After adequate pneumoperitoneum was achieved, the Veress needle was removed and a 5 mm trocar was placed through this incision. I then placed the laparoscoped through this trocar site and under direct visualization placed a further 12 mm subxiphoid port as well as 2 additional 5 mm ports in the right upper abdomen. A inflammatory mass was noted in the RUQ. Using careful dissection, both bluntly and with the electrocautery, I was able to dissect the omental adhesions off the gallbladder. The gallbladder was then identified and was noted to be moderately inflamed. I was able to place a grasper at the dome of the gallbladder and this was retracted anterior and cephalad up over the liver. A 2nd retractor was then placed at the infundibulum and retracted laterally, this allowed visualization of the triangle of [place]. I then was able to visualize the cystic duct in its entirety from its proximal insertion into the gallbladder, to its distal junction with the common hepatic/common bile duct junction. At this point, I carefully skeletonized the proximal cystic duct with the [place] dissector. I then clipped and transected the proximal cystic duct. Next I visualized the cystic artery. Again the artery was skeletonized, clipped, and transected. I then used the Bovie cautery to take down the peritoneal attachments of the gallbladder off the liver bed. Once the gallbl adder specimen was completely detached, an endo-pouch was placed through the 12 mm port site. I then placed the gallbladder specimen into the Endo pouch and removed the endo-pouch from the 12 mm port site. The specimen will now be sent to pathology for further review. I then copiously irrigated the right upper quadrant. Hemostasis was noted in the liver bed, the clips were noted to be in good position on both the cystic duct stump and the cystic artery stump. No other pathology was noted in the right upper quadrant. I then moved the laparoscope to the subxiphoid port. No iatrogenic injury or other pathology was noted in the lower abdomen. At this point, the abdomen was desufflated and all ports removed. The fascia of the 12 mm subxiphoid port was closed with a 0 Vicryl figure of 8 suture. All port sites were then closed with 4.O Monocryl subcuticular sutures. Dermabond was placed on each incision. The patient tolerated the procedure well, was extubated in the operating room postoperative and will be transferred to the recovery room in stable condition. Implants: none Anesthesia: GETA Surgeon: Evelina Arizmendi MD Estimated blood loss (mL): 50 Drains: No Packing: No Pathology: yes Complications: No immediate complications Condition: stable Disposition: PACU Findings: cholecystitis
[2020-10-14 15:14] LABS: Glucose Point of Care 160 (65-105)
[2020-10-14] MEDS: fentaNYL CITRATE INJ (*CRX) 100 MCG/2 ML VIAL 25 MCG IV PUSH ×2 (16:21→16:24)
== END 2020-10-14 17:00 | disposition home or self-care (01) ==
PROVIDERS: PCP Internal Medicine; Visit Provider Surgery
PROC: 0FT44ZZ Resection of Gallbladder, Percutaneous Endoscopic Approach (ICD-10-PCS; CPT 47562; principal; 2020-10-14 14:15)
DX: K81.2 Acute cholecystitis with chronic cholecystitis (principal); I12.9 Hypertensive chronic kidney disease with stage 1 through stage 4 chronic kidney disease, or unspecified chronic kidney disease; N18.9 Chronic kidney disease, unspecified; E11.22 Type 2 diabetes mellitus with diabetic chronic kidney disease; F41.1 Generalized anxiety disorder; D63.1 Anemia in chronic kidney disease; E11.40 Type 2 diabetes mellitus with diabetic neuropathy, unspecified; E11.51 Type 2 diabetes mellitus with diabetic peripheral angiopathy without gangrene; Z86.711 Personal history of pulmonary embolism; Z79.4 Long term (current) use of insulin; Z79.01 Long term (current) use of anticoagulants
CPT/HCPCS: 47562; 82948; 88304; A9270; J0690; J1100; J1885; J2370; J2405; J2704; J2710; J3010; J7030; J7120

== ENCOUNTER 2022-01-16 00:06 | Day surgery (SDC) | payer MEDICARE, SELFPAY ==
[2022-01-12 14:47] VITALS: BMI 30.4
[2022-01-16 09:03] VITALS: BMI 29.6
[2022-01-16] MEDS: LACTATED RINGERS 1,000 ML 150 ML IV CONT (09:26)
--- NOTE | 2022-01-16 09:28 | SUR.PREOP ---
Pt c/o stiffness in right leg. No redness or tenderness noted.
--- NOTE | 2022-01-16 09:34 | WPDANESEPPF ---
Anes - Initial Pre Proc Eval Procedure: Operation Date: 01/16/22 10:00 Proposed Procedures p Screening Colonoscopy - David Rizvi MD Date/Time: 01/16/22 09:34 Surgeon: David Rizvi MD Pre Op Diagnosis: neoplasm screening Patient Data Age: 76 Gender: M Height: 1.83 m Weight: 99 kg Allergies Allergy/AdvReac Type Severity Reaction Status Date / Time oxycodone AdvReac Intermediate Nausea Verified 01/16/22 09:03 Home Medications Medication Instructions Recorded Confirmed Type ferrous sulfate 325 mg (65 mg 325 mg PO DAILY 08/22/19 01/12/22 History iron) tablet gabapentin 300 mg capsule 300 mg PO DAILY 08/22/19 01/12/22 History hydroxyzine HCl 10 mg tablet 10 mg PO QID PRN tablet 08/22/19 01/12/22 History rosuvastatin 40 mg tablet 40 mg PO HS 08/22/19 01/12/22 History insulin aspart U-100 100 unit/mL See Rx Instructions SUB-Q TID #15 03/26/20 01/12/22 Rx (3 mL) subcutaneous pen ml Eliquis 5 mg PO BID #28 tablet 05/08/20 01/12/22 Rx cyanocobalamin (vitamin B-12) 5,000 mcg PO DAILY 06/07/20 01/12/22 History 5,000 mcg capsule fluocinonide 1 applic TOPICAL DAILY 09/30/20 01/12/22 History insulin glargine 100 unit/mL 50 unit SUB-Q DAILY ml 11/05/20 01/12/22 History subcutaneous solution cholecalciferol (vitamin D3) 100 mcg PO DAILY 01/12/22 01/12/22 History [Vitamin D3] omega-3 fatty acids-vitamin E 2 cap PO DAILY 01/12/22 01/12/22 History [Fish Oil] Patient hx anesthesia problems: none Family hx anesthesia problems: none Results Review: All pre-operative results and documents have been reviewed as part of the pre-operative evaluation. [facility] Past Medical History Medical History Abscess of liver 06/2020 Anemia in chronic kidney disease Chronic anemia Diabetic neuropathy Dialysis patient May 2018 temporary dialysis due to acute kidney injury following hip replacement surgery complicated by femoral artery pseudoaneurysm due to trauma to the artery from a screw with subsequent transferred to [place]. DM2 (diabetes mellitus, type 2) Hemoglobin A1c 03/16/2020 DVT (deep venous thrombosis) Essential hypertension Generalized anxiety disorder Overweight (BMI 25.0-29.9) PE (pulmonary thromboembolism) 05/09/2018 Type 2 diabetes mellitus with diabetic peripheral angiopathy without gangrene Surgical History Surgical History Amputation toe 2nd toe on the right H/O cataract extraction Bilaterally History of appendectomy Open appendectomy History of tonsillectomy Hx laparoscopic cholecystectomy 10/14/20 Pseudoaneurysm of femoral artery following procedure Following hip surgery with concomitant abdominal aortic aneurysm with open repair by vascular surgery with concomitant placement of IVC filter 05/09/2018 S/P ERCP 06/21/2020 due to CBD stone seen on cholecystostomy tube cholangiogram as an outpatient. No stones/sludge/debri found during ERCP. S/P IVC filter Placed in 05/09/2018 due to PE IVC filter was subsequently removed due to concerns for infection. S/P ORIF (open reduction internal fixation) fracture Right hip with complicated course including femoral artery pseudoaneurysm, Klebsiella a cauda UTI due to urinary retention, DVT, pulmonary embolism, and open vascular repair with IVC filter placement Family History Family History Mother Natural with unknown cause Father Natural with unknown cause Other Diabetes mellitus Hypertension Social History Social History Social History: The patient lives with his . He has 2 step children. He retired from the [employer]. He served in [employer]. He has not had any biological children. Lifelong nonsmoker. Does not use any alcohol or drugs. Primary care physician: Dr. Bienvenido Wells
--- NOTE | 2022-01-16 09:37 | PM.HPGS ---
History of Present Illness History of Present Illness Consent: Risks, benefits, and alternatives have been discussed and questions answered. Patient agrees to proceed with procedure. Chief complaint: neoplasm screening Narrative: Chandan Shetty is a 76 year old male here for screening colonoscopy, last one over 5 years ago Review of Systems Constitutional: Constitutional: Denies headache(s) and Denies weakness Eyes: Eyes: Denies blurry vision ENT: Reports Normal hearing present, Denies headache(s) and Denies neck pain Cardiovascular: Cardiovascular: Denies chest pain and Denies dyspnea Respiratory: Respiratory: Denies dyspnea Gastrointestinal: Gastrointestinal: Reports no additional gastrointestinal complaints Genitourinary: Genitourinary: Denies dysuria Musculoskeletal: Musculoskeletal: Denies neck pain Integumentary/Breasts: Skin/Breast: Denies dry skin Neurologic: Reports Normal hearing present, Denies headache(s) and Denies weakness Psychiatric: Psychiatric: Denies anxiety Endocrine: Endocrine: Denies change in body appearance Hematologic/Lymphatic: Hematologic/Lymphatic: Denies easy bleeding Allergic/Immunologic: Allergic/Immunologic: Denies urticaria PMFSH Past Medical History Medical History (Updated 01/16/22 @ 09:38 by David Rizvi MD) Abscess of liver 06/2020 Anemia in chronic kidney disease Chronic anemia Colon cancer screening Diabetic neuropathy Dialysis patient May 2018 temporary dialysis due to acute kidney injury following hip replacement surgery complicated by femoral artery pseudoaneurysm due to trauma to the artery from a screw with subsequent transferred to [place]. DM2 (diabetes mellitus, type 2) Hemoglobin A1c 03/16/2020 DVT (deep venous thrombosis) Essential hypertension Generalized anxiety disorder Overweight (BMI 25.0-29.9) PE (pulmonary thromboembolism) 05/09/2018 Type 2 diabetes mellitus with diabetic peripheral angiopathy without gangrene Surgical History Surgical History Amputation toe 2nd toe on the right H/O cataract extraction Bilaterally History of appendectomy Open appendectomy History of tonsillectomy Hx laparoscopic cholecystectomy 10/14/20 Pseudoaneurysm of femoral artery following procedure Following hip surgery with concomitant abdominal aortic aneurysm with open repair by vascular surgery with concomitant placement of IVC filter 05/09/2018 S/P ERCP 06/21/2020 due to CBD stone seen on cholecystostomy tube cholangiogram as an outpatient. No stones/sludge/debri found during ERCP. S/P IVC filter Placed in 05/09/2018 due to PE IVC filter was subsequently removed due to concerns for infection. S/P ORIF (open reduction internal fixation) fracture Right hip with complicated course including femoral artery pseudoaneurysm, Klebsiella a cauda UTI due to urinary retention, DVT, pulmonary embolism, and open vascular repair with IVC filter placement Family History Family History Mother Natural with unknown cause Father Natural with unknown cause Other Diabetes mellitus Hypertension Social History Social History Social History: The patient lives with his . He has 2 step children. He retired from the [employer]. He served in [employer]. He has not had any biological children. Lifelong nonsmoker. Does not use any alcohol or drugs. Primary care physician: Dr. Bienvenido Ku Code status: Full code Healthcare power of divorce attorney: Pat () Smoking status: Never smoker Second hand tobacco smoke exposure: No Alcohol intake: never Substance use: never Substance use type: does not use Living arrangements: with family Gender identity (if verbalized by the patient): Male Spiritual care concerns: No Meds Home Medications and Allergies
[2022-01-16 09:39] LABS: Glucose Point of Care 213 mg/dl (65-105)
[2022-01-16 10:03] VITALS: BP 85/42; PULSE 67; RESP 21; O2SAT 94
[2022-01-16 10:13] VITALS: BP 87/53; PULSE 68; RESP 15; O2SAT 95
[2022-01-16 10:36] LABS: Glucose Point of Care 193 mg/dl (65-105)
== END 2022-01-16 10:36 | disposition home or self-care (01) ==
PROVIDERS: PCP Internal Medicine; Visit Provider Internal Medicine Gastroenterology
PROC: 0DJD8ZZ Inspection of Lower Intestinal Tract, Via Natural or Artificial Opening Endoscopic (ICD-10-PCS; CPT 45378; principal; 2022-01-16 10:00)
DX: Z12.11 Encounter for screening for malignant neoplasm of colon (principal); D12.3 Benign neoplasm of transverse colon; K63.5 Polyp of colon; K57.30 Diverticulosis of large intestine without perforation or abscess without bleeding; K64.8 Other hemorrhoids; I10 Essential (primary) hypertension; E11.40 Type 2 diabetes mellitus with diabetic neuropathy, unspecified; F41.1 Generalized anxiety disorder; E11.51 Type 2 diabetes mellitus with diabetic peripheral angiopathy without gangrene; D64.9 Anemia, unspecified; Z86.718 Personal history of other venous thrombosis and embolism; Z86.711 Personal history of pulmonary embolism; E66.9 Obesity, unspecified; Z68.29 Body mass index [BMI] 29.0-29.9, adult; Z79.4 Long term (current) use of insulin; Z79.01 Long term (current) use of anticoagulants
CPT/HCPCS: 45385; 45380; 82948; 88305; J2704; J7120

== ENCOUNTER 2022-07-18 11:23 | Emergency (ER) | payer MEDICARE, OTHER, SELFPAY ==
[2022-07-18 11:34] VITALS: BP 136/61; PULSE 86; RESP 16; TEMP 36.8; O2SAT 97
--- NOTE | 2022-07-18 12:02 | ED.SKABFB ---
HPI - Skin/Abscess/Foreign Bdy General Chief complaint: Skin/Abscess/Foreign Body Stated complaint: itching,allergic reaction Time Seen by Provider: 07/18/22 12:02 Source: patient, RN notes reviewed and old records reviewed Mode of arrival: ambulatory Limitations: no limitations History of Present Illness HPI narrative: 77-year-old male presents to the [facility] with a rash since Wednesday night. Patient states that he had a CT with contrast at the [facility]. Next day he broke out in this red itchy rash. Has been using a cream with no relief. Has not taken any oral medications for his rash or allergic reaction. States that he tried contacting the [facility] but nobody is there today. Denies any difficulty urinating. States he is urinating normally. No lip or tongue swelling. denies trouble breathing or shortness of breath. Denies Chest pain. Onset (ago): day(s) (3) Related Data Home Medications Medication Instructions Recorded Confirmed ferrous sulfate 325 mg (65 mg 325 mg PO DAILY 08/22/19 07/18/22 iron) tablet gabapentin 300 mg capsule 300 mg PO DAILY 08/22/19 07/18/22 hydroxyzine HCl 10 mg tablet 10 mg PO QID PRN Anxiety 08/22/19 07/18/22 rosuvastatin 40 mg tablet 40 mg PO HS 08/22/19 07/18/22 cyanocobalamin (vitamin B-12) 5,000 mcg PO DAILY 06/07/20 07/18/22 5,000 mcg capsule fluocinonide 0.05 % topical cream 1 applic topical DAILY 09/30/20 07/18/22 insulin glargine 100 unit/mL 50 unit subcut DAILY 11/05/20 07/18/22 subcutaneous solution (Lantus U-100 Insulin) cholecalciferol (vitamin D3) 50 100 mcg PO DAILY 01/12/22 07/18/22 mcg (2,000 unit) capsule (Vitamin D3) omega-3 fatty acids-vitamin E 2 cap PO DAILY 01/12/22 05/29/22 1,000 mg capsule Allergies Allergy/AdvReac Type Severity Reaction Status Date / Time oxycodone AdvReac Intermediate Nausea Verified 07/18/22 12:23 IV dye Allergy Mild Rash Uncoded 07/18/22 12:23 Review of Systems Review of Systems: All systems reviewed & are unremarkable except as noted in HPI and below Constitutional: Constitutional: Reports no additional constitutional complaints, Denies chills and Denies fever(s) Eyes: Eyes: Reports no additional eye complaints ENT: Reports system reviewed and no additional complaints, except as documented Cardiovascular: Cardiovascular: Reports no additional cardiovascular complaints Respiratory: Respiratory: Reports no additional respiratory complaints Gastrointestinal: Gastrointestinal: Reports no additional gastrointestinal complaints Musculoskeletal: Musculoskeletal: Reports no additional musculoskeletal complaints Integumentary/Breasts: Skin/Breast: Reports as per HPI and Reports rash Neurologic: Reports system reviewed and no additional complaints, except as documented Psychiatric: Psychiatric: Reports no additional psychiatric complaints Allergic/Immunologic: Allergic/Immunologic: Reports no additional allergic/immunologic complaints [facility] Past Medical History Medical History (Updated 07/18/22 @ 19:44 by Virgie Harrell APRN) AAA (abdominal aortic aneurysm) Abscess of liver 06/2020 Anemia in chronic kidney disease Chronic anemia Colon cancer screening Diabetic neuropathy Dialysis patient May 2018 temporary dialysis due to acute kidney injury following hip replacement surgery complicated by femoral artery pseudoaneurysm due to trauma to the artery from a screw with subsequent transferred to [place]. DM2 (diabetes mellitus, type 2) Hemoglobin A1c 03/16/2020 DVT (deep venous thrombosis) Essential hypertension Generalized anxiety disorder Overweight (BMI 25.0-29.9) PE (pulmonary thromboembolism) 05/09/2018 Type 2 diabetes mellitus with diabetic peripheral angiopathy without gangrene Surgical History Surgical History Amputation toe 2nd toe on the right H/O cataract extraction Bilaterally History of appendectomy Open appendectomy History of tons
[2022-07-18 12:15] LABS: Glucose Point of Care 226 mg/dl (65-105)
[2022-07-18] MEDS: FAMOTIDINE 20 MG TABLET PO (12:20)
[2022-07-18] MEDS: diphenhydrAMINE HCl CAP 25 MG CAPSULE PO (12:20)
== END 2022-07-18 12:25 | disposition home or self-care (01) ==
PROVIDERS: Emergency Provider Nurse Practitioner; PCP Internal Medicine
DX: R21 Rash and other nonspecific skin eruption (principal); E11.9 Type 2 diabetes mellitus without complications; I10 Essential (primary) hypertension; Z86.718 Personal history of other venous thrombosis and embolism
CPT/HCPCS: 82948; 99213; A9270; G0463

== ENCOUNTER 2022-07-20 11:57 | Emergency (ER) | payer MEDICARE, OTHER, SELFPAY ==
[2022-07-20 12:15] VITALS: BP 140/72; PULSE 75; RESP 15; TEMP 36.6; O2SAT 98
--- NOTE | 2022-07-20 12:41 | ED.ALLEREA ---
HPI - Allergic Reaction General Chief complaint: Allergic Reaction Stated complaint: allergic reaction Time Seen by Provider: 07/20/22 12:30 History of Present Illness HPI narrative: Pt had CT with IV contrast last week, 07/15 and developed rash over entire body. Pt went to and put on benadryl and acid stalin. Pt says the rash and itching have now localized to legs and benadryl not helping. Pt denies SOB or trouble swallowing. Related Data Home Medications Medication Instructions Recorded Confirmed ferrous sulfate 325 mg (65 mg 325 mg PO DAILY 08/22/19 07/18/22 iron) tablet gabapentin 300 mg capsule 300 mg PO DAILY 08/22/19 07/18/22 hydroxyzine HCl 10 mg tablet 10 mg PO QID PRN Anxiety 08/22/19 07/18/22 rosuvastatin 40 mg tablet 40 mg PO HS 08/22/19 07/18/22 cyanocobalamin (vitamin B-12) 5,000 mcg PO DAILY 06/07/20 07/18/22 5,000 mcg capsule fluocinonide 0.05 % topical cream 1 applic topical DAILY 09/30/20 07/18/22 insulin glargine 100 unit/mL 50 unit subcut DAILY 11/05/20 07/18/22 subcutaneous solution (Lantus U-100 Insulin) cholecalciferol (vitamin D3) 50 100 mcg PO DAILY 01/12/22 07/18/22 mcg (2,000 unit) capsule (Vitamin D3) omega-3 fatty acids-vitamin E 2 cap PO DAILY 01/12/22 05/29/22 1,000 mg capsule Allergies Allergy/AdvReac Type Severity Reaction Status Date / Time oxycodone AdvReac Intermediate Nausea Verified 07/18/22 12:23 IV dye Allergy Mild Rash Uncoded 07/18/22 12:23 Review of Systems Review of Systems: All systems reviewed & are unremarkable except as noted in HPI and below [facility] Past Medical History Medical History (Updated 07/20/22 @ 12:47 by Jessica Mon III, ) AAA (abdominal aortic aneurysm) Abscess of liver 06/2020 Anemia in chronic kidney disease Chronic anemia Colon cancer screening Diabetic neuropathy Dialysis patient May 2018 temporary dialysis due to acute kidney injury following hip replacement surgery complicated by femoral artery pseudoaneurysm due to trauma to the artery from a screw with subsequent transferred to [place]. DM2 (diabetes mellitus, type 2) Hemoglobin A1c 03/16/2020 DVT (deep venous thrombosis) Essential hypertension Generalized anxiety disorder Overweight (BMI 25.0-29.9) PE (pulmonary thromboembolism) 05/09/2018 Type 2 diabetes mellitus with diabetic peripheral angiopathy without gangrene Surgical History Surgical History Amputation toe 2nd toe on the right H/O cataract extraction Bilaterally History of appendectomy Open appendectomy History of tonsillectomy Hx laparoscopic cholecystectomy 10/14/20 Pseudoaneurysm of femoral artery following procedure Following hip surgery with concomitant abdominal aortic aneurysm with open repair by vascular surgery with concomitant placement of IVC filter 05/09/2018 S/P ERCP 06/21/2020 due to CBD stone seen on cholecystostomy tube cholangiogram as an outpatient. No stones/sludge/debri found during ERCP. S/P IVC filter Placed in 05/09/2018 due to PE IVC filter was subsequently removed due to concerns for infection. S/P ORIF (open reduction internal fixation) fracture Right hip with complicated course including femoral artery pseudoaneurysm, Klebsiella a cauda UTI due to urinary retention, DVT, pulmonary embolism, and open vascular repair with IVC filter placement Family History Family History Mother Natural with unknown cause Father Natural with unknown cause Other Diabetes mellitus Hypertension Social History Social History Social History: The patient lives with his . He has 2 step children. He retired from the [employer]. He served in [employer]. He has not had any biological children. Lifelong nonsmoker. Does not use any alcohol or drugs. Primary care physician: Dr. Bienvenido Martinez
== END 2022-07-20 13:22 | disposition home or self-care (01) ==
LOC: ANHED 12:58
PROVIDERS: Emergency Provider Emergency Medicine; PCP Internal Medicine
DX: L27.0 Generalized skin eruption due to drugs and medicaments taken internally (principal); T50.8X5A Adverse effect of diagnostic agents, initial encounter; E11.22 Type 2 diabetes mellitus with diabetic chronic kidney disease; I12.9 Hypertensive chronic kidney disease with stage 1 through stage 4 chronic kidney disease, or unspecified chronic kidney disease; N18.9 Chronic kidney disease, unspecified; D63.1 Anemia in chronic kidney disease; E11.40 Type 2 diabetes mellitus with diabetic neuropathy, unspecified; E11.51 Type 2 diabetes mellitus with diabetic peripheral angiopathy without gangrene; I70.209 Unspecified atherosclerosis of native arteries of extremities, unspecified extremity; Z89.421 Acquired absence of other right toe(s); Z86.718 Personal history of other venous thrombosis and embolism; Z86.711 Personal history of pulmonary embolism; Z98.42 Cataract extraction status, left eye; Z98.41 Cataract extraction status, right eye; Z79.4 Long term (current) use of insulin; Z79.01 Long term (current) use of anticoagulants
CPT/HCPCS: 99283

== ENCOUNTER 2024-02-17 15:21 | Emergency (ER) | payer MEDICARE, SELFPAY ==
[2024-02-17 15:44] VITALS: BP 129/68; PULSE 70; RESP 16; TEMP 36.7; O2SAT 96
--- NOTE | 2024-02-17 16:40 | ED.MALEGU ---
HPI - Male Genitourinary General Chief complaint: Urogenital-Male Stated complaint: Urinary Problem Time Seen by Provider: 02/17/24 16:15 Source: patient, RN notes reviewed and old records reviewed Mode of arrival: ambulatory Limitations: no limitations History of Present Illness HPI Narrative: 78 year old male who presents to express care with complaints of stinging when he urinates and dribbling with some blood noted in his urine. patient reports that his symptoms started around noon today and he has history of past UTI and decreased kidney function. Patient reports that he has appointment with his kidney doctor on March 15. Patient reports no CVA tenderness or any suprapubic pain. Patient denies any fever, chills or any sweats, denies any nausea or vomiting or diarrhea. MD Complaint: dysuria and other Onset (ago): hour(s) (1200 today) Duration: intermittent Location: penis Severity: moderate Quality: burning and other (stinging) Related Data Home Medications Medication Instructions Recorded Confirmed ferrous sulfate 325 mg (65 mg 325 mg PO DAILY 08/22/19 09/13/23 iron) tablet hydroxyzine HCl 10 mg tablet 10 mg PO QID PRN Anxiety 08/22/19 09/13/23 rosuvastatin 40 mg tablet 40 mg PO HS 08/22/19 09/13/23 cyanocobalamin (vitamin B-12) 5,000 mcg PO DAILY 06/07/20 09/13/23 5,000 mcg capsule fluocinonide 0.05 % topical cream 1 applic topical DAILY 09/30/20 09/13/23 insulin glargine 100 unit/mL 50 unit subcut DAILY 11/05/20 09/13/23 subcutaneous solution (Lantus U-100 Insulin) cholecalciferol (vitamin D3) 50 100 mcg PO DAILY 01/12/22 09/13/23 mcg (2,000 unit) capsule (Vitamin D3) omega-3 fatty acids-vitamin E 2 cap PO DAILY 01/12/22 09/13/23 1,000 mg capsule gabapentin 300 mg capsule 600 mg PO DAILY 12/11/22 09/13/23 alogliptin 25 mg tablet 25 mg PO DAILY 06/14/23 09/13/23 insulin aspart U-100 100 unit/mL See Rx Instructions subcut TID 06/14/23 09/13/23 (3 mL) subcutaneous pen (Novolog FlexPen U-100 Insulin aspart) Allergies Allergy/AdvReac Type Severity Reaction Status Date / Time oxycodone AdvReac Intermediate Nausea Verified 12/28/23 14:05 IV dye Allergy Mild Rash Uncoded 12/28/23 14:05 Review of Systems Review of Systems: CONSTITUTIONAL: Denies fever, chills, or sweats. CARDIOVASCULAR: Denies chest pain, palpitations, or edema. RESPIRATORY: Denies cough or dyspnea. GASTROINTESTINAL: Denies abdominal pain, nausea, vomiting, or diarrhea. GENITOURINARY: Reports dysuria, no frequency,no urgency, voids small amts of urine Denies flank pain positive for some hematuria. SKIN: Denies rash or itching. MUSCULOSKELETAL: Denies back pain or myalgia. Denies CVA tenderness NEUROLOGIC: Denies headache All systems reviewed & are unremarkable except as noted in HPI and below PMFSH Past Medical History Medical History AAA (abdominal aortic aneurysm) Abscess of liver 06/2020 Anemia in chronic kidney disease Chronic anemia Colon cancer screening Diabetic neuropathy Dialysis patient May 2018 temporary dialysis due to acute kidney injury following hip replacement surgery complicated by femoral artery pseudoaneurysm due to trauma to the artery from a screw with subsequent transferred to [place]. DM2 (diabetes mellitus, type 2) Hemoglobin A1c 03/16/2020 DVT (deep venous thrombosis) Essential hypertension Generalized anxiety disorder Overweight (BMI 25.0-29.9) PE (pulmonary thromboembolism) 05/09/2018 Type 2 diabetes mellitus with diabetic peripheral angiopathy without gangrene Surgical History Surgical History Amputation toe 2nd toe on the right H/O cataract extraction Bilaterally History of appendectomy Open appendectomy History of tonsillectomy Hx laparoscopic cholecystectomy 10/14/20 Pseudoaneurysm of femoral artery following procedure Following hip surgery with concomitant a
== END 2024-02-17 17:08 | disposition home or self-care (01) ==
PROVIDERS: Emergency Provider Registered Nurse
DX: N39.0 Urinary tract infection, site not specified (principal); I12.9 Hypertensive chronic kidney disease with stage 1 through stage 4 chronic kidney disease, or unspecified chronic kidney disease; E11.22 Type 2 diabetes mellitus with diabetic chronic kidney disease; N18.30 Chronic kidney disease, stage 3 unspecified; E11.51 Type 2 diabetes mellitus with diabetic peripheral angiopathy without gangrene; E11.40 Type 2 diabetes mellitus with diabetic neuropathy, unspecified; Z79.4 Long term (current) use of insulin; D64.9 Anemia, unspecified; Z86.711 Personal history of pulmonary embolism; Z86.718 Personal history of other venous thrombosis and embolism
CPT/HCPCS: 81003; 87086; 99213; G0463

== ENCOUNTER 2024-03-26 11:39 | Emergency (ER) | payer MEDICARE, SELFPAY ==
--- NOTE | ~2024-03-26 | XR_ITS ---
XR foot LT min 3V DATE: 03/26/2024 12:56 INDICATION: Pain at proximal phalanx of second and third digits. No known injury. TECHNIQUE: 4 views COMPARISON: None FINDINGS: Anterior and posterior tibial and dorsalis pedis artery calcifications in addition to the m etatarsal artery calcifications suggest diabetes. Osteopenia. Mild plantar and posterior calcaneal enthesopathy. Mild osteoarthritis at the first metatarsophalangeal joint. No recent fracture or dislocation, periosteal reaction or bone destruction is detected. IMPRESSION: Anterior and posterior tibial, dorsalis pedis and metatarsal artery calcifications, sugge sting diabetes Osteopenia Mild plantar and posterior calcaneal enthesopathy Mild osteoarthritis of first metatarsophalangeal joint Reviewed, dictated and finalized at location A. IMPRESSION: Anterior and posterior tibial, dorsalis pedis and metatarsal artery calcifications, suggesting diabetes Osteopenia Mild plantar and posterior calcaneal enthesopathy Mild osteoarthritis of first metatarsophalangeal joint
[2024-03-26 11:46] VITALS: BP 98/46; PULSE 78; RESP 16; TEMP 36.6; O2SAT 96
--- NOTE | 2024-03-26 12:44 | ED.GENADULT ---
HPI - General Adult General Chief complaint: Extremity Injury, Lower Stated complaint: Left Foot Toe Pain Source: patient Mode of arrival: ambulatory Limitations: no limitations History of Present Illness HPI narrative: Patient presents for evaluation of left foot pain. Symptom onset 0300 this morning. Pain is primarily in the 4th digit of the left foot. Pain is intermittent, with variable frequency, lasting seconds. Pain is rated 8/10 in severity. He states the pain is sharp, and shoots through the distal aspect of the 4th digit. He has peripheral neuropathy secondary to diabetes. He has a sliding scale NovoLog and 52 units of Lantus daily. He does not remember specific injury. No history of similar symptoms. Related Data Home Medications Medication Instructions Recorded Confirmed ferrous sulfate 325 mg (65 mg 325 mg PO DAILY 08/22/19 03/15/24 iron) tablet hydroxyzine HCl 10 mg tablet 10 mg PO QID PRN Anxiety 08/22/19 03/15/24 rosuvastatin 40 mg tablet 40 mg PO HS 08/22/19 03/15/24 cyanocobalamin (vitamin B-12) 5,000 mcg PO DAILY 06/07/20 03/15/24 5,000 mcg capsule fluocinonide 0.05 % topical cream 1 applic topical DAILY 09/30/20 03/15/24 insulin glargine 100 unit/mL 50 unit subcut DAILY 11/05/20 03/15/24 subcutaneous solution (Lantus U-100 Insulin) cholecalciferol (vitamin D3) 50 100 mcg PO DAILY 01/12/22 03/15/24 mcg (2,000 unit) capsule (Vitamin D3) omega-3 fatty acids-vitamin E 2 cap PO DAILY 01/12/22 03/15/24 1,000 mg capsule gabapentin 300 mg capsule 600 mg PO DAILY 12/11/22 03/15/24 insulin aspart U-100 100 unit/mL See Rx Instructions subcut TID 06/14/23 03/15/24 (3 mL) subcutaneous pen (Novolog FlexPen U-100 Insulin aspart) Allergies Allergy/AdvReac Type Severity Reaction Status Date / Time oxycodone AdvReac Intermediate Nausea Verified 03/26/24 11:59 IV dye Allergy Mild Rash Uncoded 03/26/24 11:59 Review of Systems Review of Systems: CONSTITUTIONAL: Denies fever, chills, or sweats. EYES: Denies visual changes, redness, or discharge. ENT: Denies rhinorrhea, congestion, sore throat, or otalgia. CARDIOVASCULAR: Denies chest pain, palpitations, or edema. RESPIRATORY: Denies cough or dyspnea. GASTROINTESTINAL: Denies abdominal pain, nausea, vomiting, or diarrhea. GENITOURINARY: Denies dysuria or hematuria. SKIN: Denies rash or itching. MUSCULOSKELETAL: Reports left foot pain NEUROLOGIC: Denies headache, numbness, dizziness, or weakness. PSYCHIATRIC: Denies anxiety or depression. [facility] Past Medical History Medical History AAA (abdominal aortic aneurysm) Abscess of liver 06/2020 Anemia in chronic kidney disease Chronic anemia Colon cancer screening Diabetic neuropathy Dialysis patient May 2018 temporary dialysis due to acute kidney injury following hip replacement surgery complicated by femoral artery pseudoaneurysm due to trauma to the artery from a screw with subsequent transferred to [place]. DM2 (diabetes mellitus, type 2) Hemoglobin A1c 03/16/2020 DVT (deep venous thrombosis) Essential hypertension Generalized anxiety disorder Overweight (BMI 25.0-29.9) PE (pulmonary thromboembolism) 05/09/2018 Type 2 diabetes mellitus with diabetic peripheral angiopathy without gangrene Surgical History Surgical History Amputation toe 2nd toe on the right H/O cataract extraction Bilaterally History of appendectomy Open appendectomy History of tonsillectomy Hx laparoscopic cholecystectomy 10/14/20 Pseudoaneurysm of femoral artery following procedure Following hip surgery with concomitant abdominal aortic aneurysm with open repair by vascular surgery with concomitant placement of IVC filter 05/09/2018 S/P ERCP 06/21/2020 due to CBD stone seen on cholecystostomy tube cholangiogram as an outpatient. No stones/sludge/debri found during ERCP. S/P IVC filt
[2024-03-26 12:59] LABS: Glucose Point of Care 169 mg/dl (65-105)
== END 2024-03-26 13:23 | disposition home or self-care (01) ==
PROVIDERS: Emergency Provider Nurse Practitioner; PCP Family Medicine
DX: I70.202 Unspecified atherosclerosis of native arteries of extremities, left leg (principal); M19.072 Primary osteoarthritis, left ankle and foot; M79.672 Pain in left foot; E11.42 Type 2 diabetes mellitus with diabetic polyneuropathy; D64.9 Anemia, unspecified; I12.9 Hypertensive chronic kidney disease with stage 1 through stage 4 chronic kidney disease, or unspecified chronic kidney disease; E11.22 Type 2 diabetes mellitus with diabetic chronic kidney disease; N18.9 Chronic kidney disease, unspecified; Z79.4 Long term (current) use of insulin; Z86.718 Personal history of other venous thrombosis and embolism; Z86.711 Personal history of pulmonary embolism; E11.51 Type 2 diabetes mellitus with diabetic peripheral angiopathy without gangrene
CPT/HCPCS: 73630; 82948; 99213; G0463

== ENCOUNTER 2025-07-17 10:19 | Observation (INO) | payer MEDICARE, OTHER, SELFPAY ==
[2025-07-17] VITALS (21 sets, daily range): BP systolic 81–140; BP diastolic 39–72; PULSE 64–92; RESP 16–23; TEMP 36.6–37; O2SAT 95–100; BMI 31.1
--- NOTE | ~2025-07-17 | XR_ITS ---
EXAMINATION: XR chest 1V portable DATE: 07/17/2025 12:54 INDICATION: Altered mental status TECHNIQUE: A single frontal view of the chest was obtained. COMPARISON: May 02, 2020 FINDINGS: Mildly prominent interstitial and bronchovascular markings are present with no cong pulmonary edema or large effusion. Heart size normal. No pneumothorax or subphrenic free air. IMPRESSION: 1. Prominent interstitial markings but no focal acute process. Reviewed, dictated and finalized at location A. SPLASHER
--- NOTE | 2025-07-17 10:32 | ECG_ITS ---
Test Date: 2025-07-17 10:27:25 Measurements Intervals [place] Rate: 78 P: 20 [place]: 175 QRS: -23 QRSD: 98 T: 39 QT: 370 QTc: 424 Interpretive Statements SINUS RHYTHM BORDERLINE LEFT AXIS DEVIATION [QRS AXIS < -20] Poor R wave progression MINIMAL VOLTAGE CRITERIA FOR LVH, CONSIDER NORMAL VARIANT [MEETS CRITERIA IN ONE OF: R(aVL), S(V1), R(V5), R(V5/V6)+S(V1)] NONSPECIFIC T-WAVE ABNORMALITY No previous ECG available for comparison Electronically Signed On 07-17-2025 18:01:09 [employer] SALESPERSON by Marga Carrillo M.D.
--- NOTE | 2025-07-17 10:35 | ED.DIZZY ---
HPI - Dizziness General Chief Complaint: Dizziness Stated Complaint: DIZZY, HYPOTENSIVE Time Seen by Provider: 07/17/25 10:25 History of Present Illness HPI Narrative: Pt with Hx of DM on insulin presents with dizziness. Pt says went to [place] this morning and got lightheaded when he stood up. Pt had radiology with contrast yesterday. Pt says gets dizzy when he stands. No CP or SOB or one sided wekaness. Per EMS pt had sbp 90's and dropped to 70's when he stood up. Related Data Home Medications ?Medication ?Instructions ?Recorded ?Confirmed ?Last Taken ?Type ferrous sulfate 325 mg (65 mg 325 mg PO DAILY 08/22/19 07/17/25 1 Day Ago History iron) tablet ~10/13/20 hydroxyzine HCl 10 mg tablet 10 mg PO TID PRN Anxiety 08/22/19 07/17/25 01/15/22 History rosuvastatin 40 mg tablet 40 mg PO HS 08/22/19 07/17/25 01/15/22 History cyanocobalamin (vitamin B-12) 5,000 mcg PO DAILY 06/07/20 07/17/25 1 Day Ago History 5,000 mcg capsule ~10/13/20 fluocinonide 0.05 % topical cream 1 applic topical BID 09/30/20 07/17/25 Unknown History insulin glargine 100 unit/mL 50 unit subcut DAILY 11/05/20 07/17/25 01/15/22 History subcutaneous solution (Lantus U-100 Insulin) cholecalciferol (vitamin D3) 50 100 mcg PO DAILY 01/12/22 07/17/25 Unknown History mcg (2,000 unit) capsule (Vitamin D3) omega-3 fatty acids-vitamin E 2 cap PO DAILY 01/12/22 03/28/25 01/15/22 History 1,000 mg capsule gabapentin 300 mg capsule 600 mg PO BID 12/11/22 07/17/25 Unknown History insulin aspart U-100 100 unit/mL See Rx Instructions subcut TID 06/14/23 07/17/25 Unknown History (3 mL) subcutaneous pen (Novolog FlexPen U-100 Insulin aspart) Allergies Allergy/AdvReac Type Severity Reaction Status Date / Time oxycodone AdvReac Intermediate Nausea Verified 07/17/25 14:53 povidone-iodine AdvReac Intermediate Rash Verified 07/17/25 14:53 Review of Systems Review of Systems: All systems reviewed & are unremarkable except as noted in HPI and below PMFSH Past Medical History Medical History AAA (abdominal aortic aneurysm) Colon cancer screening Diabetic neuropathy Overweight (BMI 25.0-29.9) Generalized anxiety disorder DVT (deep venous thrombosis) DM2 (diabetes mellitus, type 2) Hemoglobin A1c 03/16/2020 Chronic anemia Abscess of liver 06/2020 Anemia in chronic kidney disease Dialysis patient May 2018 temporary dialysis due to acute kidney injury following hip replacement surgery complicated by femoral artery pseudoaneurysm due to trauma to the artery from a screw with subsequent transferred to [place]. Essential hypertension PE (pulmonary thromboembolism) 05/09/2018 Type 2 diabetes mellitus with diabetic peripheral angiopathy without gangrene Surgical History Surgical History Hx laparoscopic cholecystectomy 10/14/20 Pseudoaneurysm of femoral artery following procedure Following hip surgery with concomitant abdominal aortic aneurysm with open repair by vascular surgery with concomitant placement of IVC filter 05/09/2018 S/P ERCP 06/21/2020 due to CBD stone seen on cholecystostomy tube cholangiogram as an outpatient. No stones/sludge/debri found during ERCP. S/P IVC filter Placed in 05/09/2018 due to PE IVC filter was subsequently removed due to concerns for infection. History of appendectomy Open appendectomy S/P ORIF (open reduction internal fixation) fracture Right hip with complicated course including femoral artery pseudoaneurysm, Klebsiella a cauda UTI due to urinary retention, DVT, pulmonary embolism, and open vascular repair with IVC filter placement History of tonsillectomy Amputation toe 2nd toe on the right H/O cataract extraction Bilaterally Family History Family History Mother Natural with unknown cause Father Natural with unknown cause Other Diabetes mellitus Hypertension Social History Social History Social History: The patient lives with his . He has 2 step children. He retired from the [employer]. He served in [employer]. He has not had any biological children. Lifelong nonsmoker. Does not use any alcohol or drugs. Primary care physician: Dr. Bienvenido Ku Code status: Full code Healthcare power of solar business developer: Pat () Smoking status: Never smoker Second hand tobacco smoke exposure: No Alcohol intake: never Substance use: never Substance use type: does not use Do You Feel Safe in your Home?: Yes Lack of Transportation: No Lack of Food: Never True Current Housing: I Have Housing Concerned About Future Housing: No Difficulty Paying Gas/Electric Bills: No Difficulty Paying for Meds: No Currently Unemployed: No Education: Trade/Vocational Certificate Difficulty w/ Childcare or Family Care: No Living arrangements: with family Occupation/Education: retired Additional occupation/education comments: [employer]. Gender identity (if verbalized by the patient): Male Spiritual care concerns: No Exam Const: General: healthy appearing and no acute distress Nutritional Appearance: well nourished Orientation/consciousness: patient oriented x3 Limitations: no limitations Eyes: EOM: EOMs intact bilaterally Neck: Neck: normal visual inspection Chest: Chest palpation & inspection: normal inspection of the chest Resp: Effort & Inspection: normal respiratory effort Auscultation: clear to auscultation bilaterally Cardio: Rate: regular rate Rhythm: regular rhythm GI: GI Palp: Yes Soft to palpation and Yes Tenderness to palpation present (GI) Auscultation: normal bowel sounds Back/Spine/Pelvis: Back: no CVA tenderness Skin: General skin exam: normal color Rashes: no rashes Wounds: no wounds Neuro: General: patient oriented x3, moves all extremities, no focal motor deficits and CN's II-XI intact bilaterally Speech: normal speech Extrem: General: normal to inspection and no clubbing, cyanosis or edema Psych: Mental Status: mental status grossly normal Affect: normal affect Attitude: cooperative Course Vital Signs Vital signs: Vital Signs Temperature 97.8 F 07/17/25 10:32 Pulse Rate 80 07/17/25 10:32 Respiratory Rate 20 07/17/25 10:32 Blood Pressure 114/57 L 07/17/25 10:32 Pulse Oximetry 100 07/17/25 10:32 Oxygen Delivery Room Air 07/17/25 10:32 Temperature 97.8 F 07/17/25 15:04 Pulse Rate 79 07/17/25 16:00 Respiratory Rate 18 07/17/25 15:04 Blood Pressure 113/51 L 07/17/25 15:04 Pulse Oximetry 100 07/17/25 15:04 Oxygen Delivery Room Air 07/17/25 15:15 MDM - Dizziness MDM Narrative Medical decision making narrative: will get labs and give some fluids and ekg. ekg unremarkable. potassium very elevated. [facility] discussed with Kulwant del toro and agrees to admit. Differential Diagnosis Differential diagnosis: Likely adverse reaction to drug, benign paroxysmal positional vertigo, orthostatic hypotension and other (contast nephropathy) Lab Data Attestation: I reviewed the patient's lab results. Lab results narrative: wbc elevated so will add ua and bc and lactate and cxr, potassium over 6 so will treat. discussed with Kulwant Del Toro and agrees to observation. 07/17/25 11:55 07/17/25 14:58 Labs: Lab Results 07/17/25 07/17/25 Range/Units 11:44 11:55 WBC 21.4 H (4.5-10.0) K/mm3 RBC 5.11 (4.6-6.20) M/mm3 Hgb 15.2 D (14.0-18.0) g/dL Hct 46.7 (42.0-52.0) % MCV 91.4 (80-100) fl MCH 29.7 (26-34) pg MCHC 32.5 (32-36) g/dl RDW 14.3 (11.5-14.5) % Plt Count 186 D (150-375) k/mm3 MPV 11.0 H (7.4-10.4) fl Immature Gran % (Auto) Not Reportable Neut % (Auto) Not Reportable Lymph % (Auto) Not Reportable O'Brien % (Auto) Not Reportable Eos % (Auto) Not Reportable Baso % (Auto) Not Reportable Lymph # (Auto) Not Reportable O'Brien # (Auto) Not Reportable Eos # (Auto) Not Reportable Baso # (Auto) Not Reportable Abs Immat Gran (auto) Not Reportable Absolute Neuts (auto) Not Reportable Absolute Nucleated RBC Not Reportable Nucleated RBC % Not Reportable PT 15.6 H (11.1-14.7) Seconds INR 1.3 APTT 40.5 H (22.3-36.8) Seconds Sodium 133 L (137-145) mmol/L Potassium 6.4 H* (3.4-5.0) mmol/L Chloride 106 (98-107) mmol/L Carbon Dioxide 19 L (22-30) mmol/L Anion Gap 8 (4-12) mmol/L BUN 30 H (9-20) mg/dL Creatinine 1.89 H (0.7-1.3) mg/dL Estim Creat Clear Calc Not Reportable Estimated GFR 34 L (59 - ) Glucose 253 H (65-110) mg/dL POC Capillary Glucose 215 H (65-105) mg/dl Calcium 8.5 (8.4-10.2) mg/dL Magnesium 1.9 (1.6-2.3) mg/dL Total Bilirubin 1.1 (0.2-1.3) mg/dL AST 21 (17-59) U/L ALT 24 (6-50) U/L Alkaline Phosphatase 64 (38-126) U/L Troponin I < 0.012 (0.000-0.034) ng/mL Total Protein 7.1 (6.3-8.2) g/dL Albumin 4.0 (3.5-5.1) g/dL ECG Data EKG #1: Attestation: I personally reviewed and interpreted this ECG as follows: Interpretation: nsr rate 78, lad, lvh, no specific st changes Critical Care Time Critical Care Time Critical Care Time: Yes Total Critical Care Time: 32 Discharge Plan Discharge Clinical Impression: Acute hyperkalemia, Weakness Patient Disposition: Still a Patient Condition: Stable
[2025-07-17] MEDS: SODIUM CHLORIDE 0.9% IV 1,000 ML 999 ML IV CONT (11:14)
--- OUTSIDE RECORDS SUMMARY | 2025-07-17 11:25 | XMS_ITS | Clinical Summary ---
Author Organization [facility] Address [address] [place] [id number] Phone Care Team Providers Care Resident Services Director Name Role Phone Bienvenido Ku MD Primary Care Provider [phone] Allergies Active Allergy Reactions Criticality Noted Date Comments Atorvastatin Other (see comments) 03/17/2019 Reaction: cramps, Prednisone & Diphenhydramine Rash Low 08/12/2022 Oxycodone Nausea And Vomiting Low 07/26/2018 Medications rosuvastatin (CRESTOR) 20 MG tablet Take 40 mg by mouth daily Active Polyvinyl Alcohol 1.4 % solution Administer 1 drop into affected eye(s) 2 times daily Active [place]-3 Fatty Acids (OMEGA-3 2100) 1050 MG capsule Take 2 capsules by mouth daily Active ACCU-CHEK SOFTCLIX LANCETS lancets Acti ve insulin glargine (LANTUS) 100 UNIT/ML injection Inject 20 Units under the skin daily Active gabapentin (NEURONTIN) 600 MG tablet Take 600 mg by mouth 4 times daily Active fluocinonide (LIDEX) 0.05 % cream Indications: APPLY BID Active DULoxetine (CYMBALTA) [address] capsule Take 20 mg by mouth Active cyanocobalamin (V-R VITAMIN B-12) 500 MCG tablet Take 500 mcg by mouth daily Active apixaban (ELIQUIS) 5 MG tablet Take 10 mg by mouth 2 times daily 8 Active Cholecalciferol (Vitamin D3) 50 MCG (2000 UT) tablet Take by mouth Active insulin aspart (NovoLOG) 100 UNIT/ML injection Inject under the skin 3 (three) times a day before meals Active ferrous sulfate 324 (65 Fe) MG EC tablet Take 324 mg by mouth 1 (one) time each day with breakfast Active Alogliptin Benzoate 25 MG tablet Take 50 mg by mouth Active Active Problems Problem Noted Date Diagnosed Date Stage 3b chronic kidney disease 09/29/2018 Anemia in chronic kidney disease 06/20/2018 Essential (primary) hypertension 06/20/2018 Renal osteodystrophy 06/20/2018 Pulmonary embolism 05/09/2018 Overview (03/17/2019): Last Assessment & Plan: Initially noted incidentally on CT a/p at OSH. Asymptomatic. History of total hip arthroplasty 04/20/2018 Overview (03/17/2019): Last Assessment & Plan: R hip arthroplasty performed for OA refractory to conservative management on 04/19. Retention of urine 04/20/2018 Overview (03/17/2019): Last Assessment & Plan: Patient had an episode of urinary retention, Straight cath was performed had about 800 cc of urine output. Will continue with bedside bladder scans straight cath if unable to void or postvoid urine volume more than 300 cc. Mass lesion of brain 12/06/2015 Polyneuropathy due to type 2 diabetes mellitus 0 09/16/2015 Vitamin D deficiency 09/11/2015 Mixed hyperlipidemia 01/20/2014 Overview (03/17/2019): MIXED HYPERLIPIDEMIA Last Assessment & Plan: Continue home rasuvastatin and ASA. Type 2 diabetes mellitus wit h diabetic chronic kidney disease 06/21/2012 Overview (03/17/2019): Diabetic peripheral neuropathy Last Assessment & Plan: Will hold oral hypoglycemics. Continue with Lantus 10 units subcutaneously, patient is taking the medication in a.m.. Continue with medium sliding scale corrective dose insulin. DMII WO CMP NT ST UNCNTR Last Assessment & Plan: Holding home meds (glipizide, metformin, saxagliptin, lantus 10u qhs. - holding home oral meds -on lantus 10u qhs and mid SSI w/ meals Immunizations Immunization Administration Dates Next Due Influenza Split High Dose Pr eservative Free IM 08/05/2018 Influenza TIV (IM) 06/06/2022,06/10/2021, 020 Influenza Trivalent Adjuvanted 06/05/2019 Influenza, split virus, trivalent, PF 06/27/2017 ,07/11/2016,07/10/2015 OPV 09/06/1981 Pneumococcal Conjugate 13-Valent 07/19/2016 Pneumococcal Polysaccharide 09/06/2010, 0 Td 05/07/2015,09/06/2014,09/06/2005 Family History Medical History Relation Comments Kidney disease Neg Hx Social History Tobacco Use Types Packs/Day Years Used Date Smoking Tobacco: Never Smokeless Tobacco: Never Alcohol Use Standard Drinks/Week Comments No 0 (1 standard drink = 0.6 oz pur e alcohol) Sex and Gender Information Value Date Recorded Sex Assigned at Not on file Legal Sex Male 9:46 AM MST Gender Identity Not on file Sexual Orientation Not on file Last Filed Vital Signs Vital Sign Reading Time Taken Comments Blood Pressure 118/70 08/12/2022 1:16 PM [employer] Pulse 60 08/12/2022 1:16 PM [employer] Temperature 36.8 C (98.3 F) 08/12/2022 1:16 PM [employer] Respiratory Rate - - Oxygen Saturation - - Inhaled Oxygen Concentration - - Weight 104 kg (229 lb) 08/12/2022 1:16 PM [employer] Height 182.9 cm (6') 08/12/2022 1:16 PM [employer] Body Mass Index 31.06 08/12/2022 1:16 PM [employer] Plan of Treatment Health Maintenance Due Date Last Done Comments Influenza Vaccine (#1) 2025 2, 06/10/2021, 06/06/2020, Additional history exists Pneumococcal PPSV23/PCV13 65 + Years / Low and Medium Risk Completed 07/19/2016, 09/06/2010, 05/05/2010 Insurance MEDICARE [facility] Care Teams Resident Services Director Relationship Specialty Start Date End Date Bienvenido Ku MD [address] [place] [id number] PCP - General Family Medicine 03/22/19
--- OUTSIDE RECORDS SUMMARY | 2025-07-17 11:25 | XMS_ITS | Clinical Summary ---
Author Organization [facility] Address [address] [facility] [address] [place] [address] Phone Care Team Providers Care Fish Bait Picker Name Role Phone Dwight Rogers DPM Unavailable [phone] Esmeashkan David Henson DO Unavailable [phone] Marizol Og EXPERIENCE SPECIALIST, LENS BLOCK GAUGER Unavailable [phone] Minal Carlson EXPERIENCE SPECIALIST, LENS BLOCK GAUGER Unavailable Provider, None Primary Care Provider Unavailabl e Allergies Active Allergy Reactions Criticality Noted Date Comments Atorvastatin Other (see Comments) Reaction: cramps, Medications Saxagliptin HCl (ONGLYZA) 2.5 MG Tablet Take 2.5 mg by mouth daily. Reported on 01/20/2017 Active ibuprofen (MOTRIN) 800 MG TabletIndicatio ns:1 PO BID Indications: 1 PO BID Active traZODone (DESYREL) 100 MG TabletIndicatio ns:1 1/2 PO DAILY Take 100 mg by mouth nightly. Reported on 01/20/2017 Indications: 1 1/2 PO DAILY Active hydrOXYzine (ATARAX) 10 MG TabletIndicatio ns:1 PO TID Take 10 mg by mouth 4 times daily. Reported on 01/20/2017 Indications: 1 PO TID Active fluocinonide (LIDEX) 0.05 % CreamIndication s:APPLY BID Indications: APPLY BID Active gabapentin (NEURONTIN) 300 MG CapsuleIndicati ons:3 CAPS BY MOUTH 3X A DAY Take 300 mg by mouth 3 times daily. 2 caps 3 times daily Indications: 3 CAPS BY MOUTH 3X A DAY Active [place]-3 Fatty Acids (FISH OIL) 1200 MG Capsule Take 1,200 mg by mouth 2 times daily. Active rosuvastatin (CRESTOR) 20 MG Tablet Take 20 mg by mouth daily. Take 1/2 tablet nightly Active ACCU-CHEK SOFTCLIX LANCETS Misc by Does not apply route. Use to test blood sugar twice daily Active DULoxetine (CYMBALTA) [address] Particles Take 20 mg by mouth nightly. Reported on 01/20/2017 Active Alcohol Swabs (ALCOHOL PREP) 70 % Pads by Does not apply route. Active polyvinyl alcohol (LIQUIFILM TEARS) 1.4 % Solution Place 1 Drop in both eyes 2 times daily. Active Glucose Blood Strip by In Vitro route. Test blood sugar 2 times daily Active Aspirin 81 MG Tablet Take 81 mg by mouth daily. Active glipiZIDE (GLUCOTROL) 10 MG Tablet Take 1 Tab by mouth 2 times daily. 60 Tab 1 7 Active Additional Information Patient taking differently:10 mg Oral 2 TIMES DAILY,Indications: takes 1/2 tablet in AM and 1 tablet in PM, Reported on 01/24/2018 metFORMIN (GLUCOPHAGE) 500 MG Tablet Take 1,000 mg by mouth 2 times daily (with meals). Active otherIndication s:Insulin Therapy by Other route. Acti ve Cyanocobalamin 500 MCG Tablet Take 500 mcg by mouth daily. Active rosuvastatin (CRESTOR) 40 MG Tablet Take 40 mg by mouth daily. Active vitamin D (CHOLECALCIFERO L) 1000 UNIT Tablet Take 1,000 Units by mouth daily. Active gabapentin (NEURONTIN) 600 MG Tablet Take 600 mg by mouth 3 times daily. Active Insulin Glargine (LANTUS SC) 12 Units by Subcutaneous route daily. Active traMADol (ULTRAM) 50 MG Tablet Take 1 Tab by mouth every 6 hours as needed for Moderate pain (4-6) or more severe pain if patient requests. 20 Tab 8 Active DOCOSAHEXAENOIC ACID PO Take by mouth. Activ e Active Problems Problem Noted Date Diagnosed Date Elevated hemoglobin A1c 04/20/2016 Brain mass 12/06/2015 Memory loss 12/06/2015 Post traumatic stress disorder 12/06/2015 Diabetes mellitus type 2, uncontrolled 6 Hyperlipidemia 10/15/2015 Diabetic polyneuropathy asso ciated with type 2 diabetes mellitus 09/16/2015 Vitamin D insufficiency 09/11/2015 Diabetes mellitus with perip heral circulatory disorder (<HCC>) Dermatophytosis of nail Ingrowing nail Mallet toe Overview (08/12/2015): Right Second Toe Flexible Osteolysis, left ankle and foot Resolved Problems Problem Noted Date Diagnosed Date Resolved Date Paronychia of great toe of left foot 11/02/2017 01/18/2018 Ingrown left greater toenail 09/14/2016 01/18/2018 Nail disease 01/18/2018 Overview (08/12/2015): Dermatology non-infectious nails Immunizations Immunization Administration Dates Next Due Influenza Vaccine 06/28/2017 Influenza Vaccine greater than 3 yrs 07/12/2016, 07/15/2015,05/25/2013 07/15/2016 Influenza, Trivalent, Adjuvanted, PF 06/05/2019 Pneumococcal Vaccine - 13 Valent 07/20/2016 Pneumococcal Vaccine Adult - 23 Valent 1 TD VACCINE 05/07/2015 Family History Medical History Relation Name Comments No Known Problems Father Congestive Heart Failure Mother Relation Name Status Comments Father Mother Social History Tobacco Use Types Packs/Day Years Used Date Smoking Tobacco: Never Smokeless Tobacco: Never Tobacco Cessation:Counseling Given: No Alcohol Use Standard Drinks/Week Comments Yes 0 (1 standard drink = 0.6 oz pur e alcohol) Sex and Gender Information Value Date Recorded Sex Assigned at Not on file Legal Sex Male 10:00 PM CDT Gender Identity Not on file Sexual Orientation Not on file Occupation Industry Job Start Date Job End Date 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 [employer] Not on file Not on file Not on file Last Filed Vital Signs Vital Sign Reading Time Taken Comments Blood Pressure 104/56 04/13/2018 3:02 PM CDT Pulse 93 04/13/2018 3:02 PM CDT Temperature 36.7 C (98 F) 04/13/2018 3:02 PM CDT Respiratory Rate 16 04/13/2018 3:02 PM CDT Oxygen Saturation 96% 04/13/2018 3:02 PM CDT Inhaled Oxygen Concentration - - Weight 95.1 kg (209 lb 11.2 oz) 04/13/2018 3:02 PM CDT Height 182.9 cm (6') 04/13/2018 3:02 PM CDT Body Mass Index 28.44 04/13/2018 3:02 PM CDT Plan of Treatment Health Maintenance Due Date Last Done Comments Diabetes: Eye Exam 1945 Diabetes: Foot Exam 1945 Hepatitis C Virus (HCV) Screening 1945 TdaP Immunization 1945 Zoster Immunization (1 of 2) 1995 Medicare Initial AWV [id number] 03/06/2011 Diabetes: Nephropathy Screening 07/13/2018 07/13/2017, 10/09/2016, 10/09/2016, Additional history exists Diabetes: Hemoglobin A1c 10/09/2018 018, 07/13/2017, 01/26/2017, Additional history exists Respiratory Syncytial Virus (RSV) Immunization (Adult) (1 - 1-dose 75+ series) 2020 Influenza Immunization (#1) 05/07/202505/09, 08/05/2018, 06/28/2017, Additional history exists SARS-COV-2 Immunization ( season) 2025 01/09/2021 Colonoscopy Discontinued 02/21/2016, 06/27/2012 Colorectal Cancer Screening Discontinued Pneumococcal Immunization (50+ years) Completed 07/20/2016, 09/06/2010, 05/05/2010 Pneumococcal Immunization Combined Discontinued 07/20/2016, 09/06/2010, 05/05/2010 Cologuard Discontinued Hepatitis B Immunization Aged Out No longer eligible based on patient's age to complete this topic Human Papillomavirus (HPV) Immunization Aged Out No longer eligible based on patient's age to complete this topic Immunochemical Fecal Occult Blood Discontinued Meningococcal Immunization (ACWY) Aged Out No longer eligible based on patient's age to complete this topic Rotavirus Immunization Aged Out No lo nger eligible based on patient's age to complete this topic Procedures Procedure Name Priority Date/Time Associated Diagnosis Comments CMP (COMPREHENSIVE METABOLIC PANEL) Routine 07/13/2017 HEMOGLOBIN, A1C Routine 07/13/2017 HM COLONOSCOPY Routine 06/27/2012 from Last 3 Months or Most Recently Relevant to Health Maintenance Results * HEMOGLOBIN, A1C (07/13/2017) HGB-A1C 7.6 % Blood specimen (specimen) 07/13/2017 us Not On File Provider CHEMISTRY ORDERABLES Final Result * CMP (COMPREHENSIVE METABOLIC PANEL) (07/13/2017) Blood specimen (specimen) us Not On File Provider CHEMISTRY ORDERABLES Final Result * COLONOSCOPY (06/27/2012) us Merrill Kingston MD PROCEDURE/MINOR SURGICAL ORDERABLES Final Result from Last 3 Months or Most Recently Relevant to Health Maintenance Insurance MEDICARE [facility] Care Teams Fish Bait Picker Relationship Specialty Start Date End Date Provider, None [place] PCP - General 03/06/21 Dwight Rogers DPM Podiatry 12/16/15 David Rosales DO Gastroenterology 03/12/16 Marizol Og APRN, LENS BLOCK GAUGER Nurse Practitioner Advanced Practice Nurse 03/12/16 Minal Carlson APRN, LENS BLOCK GAUGER Nurse Practitioner Advanced Practice Nurse 03/12/16
--- OUTSIDE RECORDS SUMMARY | 2025-07-17 11:25 | XMS_ITS | Clinical Summary ---
Author Organization [facility] Address [address] [place] [address] Care Team Providers Care Check Out Clerk Name Role Phone MayankLucindaSyed WOLFE Unavailable Unavailable Bienvenido Ku MD Primary Care Provider [phone] Allergies Active Allergy Reactions Criticality Noted Date Comments Oxycodone Nausea & Vomiting Low 07/26/2018 Medications cyanocobalamin (Vitamin B-12) 500 mcg tablet Take 500 mcg by mouth daily. Active gabapentin (NEURONTIN) 600 mg tablet Take 600 mg by mouth 4 (four) times a day. Active glipiZIDE (GLUCOTROL) 10 mg tablet Take 10 mg by mouth 2 (two) times a day before breakfast and lunch. Active ibuprofen (ADVIL,MOTRIN) 800 mg tablet Take 800 mg by mouth every 6 (six) hours as needed for pain. Active insulin glargine (LANTUS) 100 unit/mL injection Inject 20 Units under the skin daily. Active ugrcl-9-tup-epa- dpa-fish oil 1,050-1,200 mg capsule Take 2 capsules by mouth daily. Active rosuvastatin (CRESTOR) 20 mg tablet Take 40 mg by mouth daily. Active sAXagliptin (ONGLYZA) 2.5 mg tablet Take 5 mg by mouth daily. Active cholecalciferol (VITAMIN D-3) 1,000 unit tablet Take 1,000 Units by mouth daily. Active acetaminophen (TYLENOL) 325 mg tablet Take 2 tablets (650 mg total) by mouth every 6 (six) hours as needed for pain. 30 tablet 8 Active Additional Information Patient not taking.Reported on 07/26/2018 apixaban (ELIQUIS) 5 mg tabletIndication s:Other pulmonary embolism without acute cor pulmonale, unspecified chronicity (HCC) Take 2 tablets (10 mg total) by mouth 2 (two) times a day. 60 tablet 2 8 Active amLODIPine (NORVASC) 10 mg tablet Take 10 mg by mouth daily. Active pantoprazole (PROTONIX) 40 mg injection Active Active Problems Problem Noted Date Diagnosed Date Urinary tract infection 05/09/2018 Assessment & Plan (05/09/2018 11:02 AM CDT): U/A concerning for UTI. Pulmonary embolism 05/09/2018 Assessment & Plan (05/09/2018 11:03 AM CDT): Initially noted incidentally on CT a/p at OSH. Asymptomatic. Abdominal pain 05/09/2018 Assessment & Plan (05/09/2018 11:51 AM CDT): U/A concerning for UTI. CT a/p initially concerning for possible cholecystitis. F/u RUQ ??? 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 Assessment & Plan (04/20/2018 4:34 AM CDT): Postop day #0, doing well Pain management with oral [place], will give morphine 3 mg every 4 hr as needed for breakthrough pain. Will continue to hold the aspirin and fish oil for now Consider restarting aspirin tomorrow after cleared by Orthopedics. Restart gabapentin Urinary retention 04/20/2018 Assessment & Plan (04/20/2018 4:40 AM CDT): Patient had an episode of urinary retention, Straight cath was performed had about 800 cc of urine output. Will continue with bedside bladder scans straight cath if unable to void or postvoid urine volume more than 300 cc. Multiple-type hyperlipidemia 01/20/2014 Overview (12/09/2016): MIXED HYPERLIPIDEMIA Assessment & Plan (05/09/2018 11:42 AM CDT): Continue home rasuvastatin and ASA. Assessment & Plan (04/20/2018 4:36 AM CDT): Continue with Crestor. Aspirin is currently on hold. Consider restarting tomorrow after cleared by Orthopedics. Type 2 diabetes mellitus 01/20/2014 Overview (12/10/2016): DMII WO CMP NT ST UNCNTR Assessment & Plan (05/09/2018 11:05 AM CDT): Holding home meds (glipizide, metformin, saxagliptin, lantus 10u qhs. - holding home oral meds -on lantus 10u qhs and mid SSI w/ meals Generalized osteoarthritis 01/20/2014 Overview (12/11/2016): GENERAL OSTEOARTHROSIS Pain of lower extremity 06/21/2012 Overview (12/09/2016): Pain of lower leg Diabetes mellitus 06/21/2012 Overview (12/10/2016): Diabetic peripheral neuropathy Assessment & Plan (04/20/2018 4:35 AM CDT): Will hold oral hypoglycemics. Continue with Lantus 10 units subcutaneously, patient is taking the medication in a.m.. Continue with medium sliding scale corrective dose insulin. Ataxic gait 06/21/2012 Overview (12/11/2016): Ataxic gait Primary osteoarthritis of right hip Post-procedural fever Hyperglycemia Oliguria Volume depletion Atelectasis of both lungs Immunizations Immunization Administration Dates Next Due OPV 09/06/1981 Td, adsorbed 09/06/2005 Surgical History Surgery Date Site/Laterality Comments AMPUTATION FOOT / TOE Right 2nd toe right foot partial amputation APPENDECTOMY REVISION TOTAL HIP ARTHROPLASTY 04/19/2018 Right REMOVE VENA CAVA FILTER 07/26/2018 N/A Medical History Medical History Date Comments Diabetes mellitus Diabetes Hyperlipidemia Hyperlipidemia Type 2 diabetes mellitus Hypertension Social History Tobacco Use Types Packs/Day Years Used Date Smoking Tobacco: Never Smokeless Tobacco: Never Alcohol Use Standard Drinks/Week Comments No 0 (1 standard drink = 0.6 oz pur e alcohol) Sex and Gender Information Value Date Recorded Sex Assigned at Not on file Legal Sex Male 8:02 PM [employer]ER W[employer] Gender Identity Not on file Sexual Orientation Not on file Last Filed Vital Signs Vital Sign Reading Time Taken Comments Blood Pressure 119/90 07/26/2018 2:45 PM FIRER WATERTENDER Pulse 90 07/26/2018 2:45 PM FIRER WATERTENDER Temperature 37.1 C (98.7 F) 07/26/2018 10:32 AM FIRER WATERTENDER Respiratory Rate 18 07/26/2018 2:45 PM FIRER WATERTENDER Oxygen Saturation 100% 07/26/2018 2:45 PM FIRER WATERTENDER Inhaled Oxygen Concentration - - Weight 84.8 kg (187 lb) 07/26/2018 10:32 AM FIRER WATERTENDER Height 182.9 cm (6') 07/26/2018 10:32 AM FIRER WATERTENDER Body Mass Index 25.36 07/26/2018 10:32 AM FIRER WATERTENDER Plan of Treatment Health Maintenance Due Date Last Done Comments Depression Screening 1945 Fall Risk Assessment 1945 Dilated Eye Exam 1945 Foot Exam 1945 Hepatitis B Screening 1963 Zoster Vaccine (1 of 2) 1995 Well Visit 65+ 2010 Covid-19 Vaccine (6 - 2024-2 6 season) 2025 06/08/2024, 06/09/2023, 06/04/2022, Additional history exists Influenza Vaccine (#1) 2025 4, 06/09/2023, 09/06/2022, Additional history exists DTaP/Tdap/Td Vaccine (5 - Td or Tdap) 05/20/2025 05/20/2015, 05/07/2015, 09/06/2014, Additional history exists Hemoglobin A1C 07/05/2025 01/03/2025, 01/0 11/2024, 04/08/2018 Albumin Creatinine Ratio, Urine 01/03/2026 5, 09/08/2024 Lipid Panel 01/03/2026 01/03/2025, 11/2024, 05/09/2018 eGFR 01/03/2026 01/03/2025, 11/2024, 09/08/2024, Additional history exists Pneumococcal vaccine 65+ Completed 016, 10/10/2015, 05/12/2011, Additional history exists Medical Devices Implanted Type Area Scrap Charger Device Identifier Shelf Expiration Date Model / Serial / Lot [employer] 1235-2-541 Adm Mobile Bearing Hip Mandaeism 54mm Peripheral Self Lock - [id number] Implanted:Qty: 1 on 04/19/2018 by Ross Bentley MD at [facility] Right: Hip [employer] 08/10/2021 1235-2-541 / / [id number] [employer] [id number] Accolade 105mm 35mm Modular Hip 127d 4 Taper Stem Femoral Sterile - [id number] Implanted:Qty: 1 on 04/19/2018 by Ross Bentley MD at [facility] Right: Hip [employer] 01/27/2023 [id number] / / [id number] [employer] [id number] Adm Mobile Bearing Hip Mandaeism 48mm 54mm 28mm 9.9mm Hip - [id number] Implanted:Qty: 1 on 04/19/2018 by Ross Bentley MD at [facility] Right: Hip [employer] 01/29/2021 [id number] / / [id number] [employer] [id number] V40; Lfit Od28 Mm Hip -4 Mm; Offset; Taper Head Femoral Cocr - [id number] Implanted:Qty: 1 on 04/19/2018 by Ross Bentley MD at [facility] Right: Hip [employer] 04/08/2022 [id number] / / [id number] [employer] [id number] Loving Delivery Kit Vena Cava Femoral Filter Embolization Nitinol Latex Free - [id number] Implanted:Qty: 1 on 05/09/2018 by Scout Farah MD PhD at [facility] N/A: Femur [employer] [id number] 04/05/2021 [id number] / / [id number] Procedures Procedure Name Priority Date/Time Associated Diagnosis Comments EGFR Routine 01/03/2025 8:44 AM CDT HEMOGLOBIN A1C Routine 01/03/2025 8:44 AM CDT LIPID PANEL Routine 01/03/2025 8:44 AM CDT ALBUMIN CREATININE RATIO, URINE Routine 01/03/2025 8:44 AM CDT from Last 3 Months or Most Recently Relevant to Health Maintenance Results * (ABNORMAL) eGFR (01/03/2025 8:44 AM CDT) eGFR 46(L) >=60 mL/min/1. 73 m2 Comment: Interpretive Data Reference Interval Normal >/= 90 mL/min/1.73m2 Mildly decreased* 60 - 89 mL/min/1.73m2 Mildly to moderately decreased 45 - 59 mL/min/1.73m2 Moderately to severely decreased 30 - 44 mL/min/1.73m2 Severely decreased 15 - 29 mL/min/1.73m2 Kidney Failure < 15 mL/min/1.73m2 *Relative to young adult level Estimated glomerular filtration rate is determined by the 2020 CKD-EPI equation recommended by the National Kidney Foundation (A Unifying Approach to GFR Estimation: Recommendations of the NKF-ASK Task Force on Reassessing the Inclusion of Race in Diagnosing Kidney Disease, JASN 2020). The CKD-EPI equation should not be used for patients with unstable renal function and has not been validated in children and those over 70. Current interpretive data was last reviewed 2021. Testing performed by: [facility], [address] [place] [address], [place]., [address] Blood 01/03/2025 8:44 AM CDT 01/03/2025 3:50 PM CDT us Mihir Preston MD LAB BLOOD ORDERABLES Danitza wolf Result JOSI PRESSLEY ([place]) 1 [facility] Department [place] [address] * Albumin Creatinine Ratio, Urine (01/03/2025 8:44 AM CDT) Albumin Ur 20.4 mg/L Comment: Interpretive Data No reference range established. Current interpretive data was last revised 2019. Testing performed by: [facility], [address] [place] [address], [place]., [address] Creatinine Ur 145.5 mg/dL JOIS PRESSLEY ([place]) Comment: Interpretive Data No reference range established. Current interpretive data was last revised 2019. Testing performed by: [facility], [address] [place] [address]., [address] Albumin Creatinine Ratio, Ur 14 1 - 29 mg/g JOSI PRESSLEY ([place]) Comment:Testing performed by : [address] [address] Urine 01/03/2025 8:44 AM CDT 01/03/2025 8:45 AM CDT us Mihir Preston MD LAB URINE ORDERABLES Danitza wolf Result [facility] WEND[facility] ([place]) 1 [facility] [place] [address] * (ABNORMAL) Hemoglobin A1c (01/03/2025 8:44 AM CDT) Pathologist [facility] Hgb A1C 8.4(H) 4.0 - 5.6 % Comment:Testing performed by : [address] [place] [address] Estimated Average Glucose 194 mg/dL JOSI PRESSLEY ([place]) Comment: The ADA recommends reporting an estimated Average Glucose (eAG) with all Hemoglobin A1c results using the equation derived from a study of 507 normal and diabetic adults. Minority populations were underrepresented and children were not included. (Diabetes Care 31:1367-0125, 2008). The eAG is not equivalent to a fasting glucose. Testing performed by: [address] [place] [address] Blood 01/03/2025 8:44 AM CDT 01/03/2025 8:45 AM CDT us Mihir Preston MD LAB BLOOD ORDERABLES Danitza luciano Result JOSI PRESSLEY ([place]) 1 [facility] Department [place] [address] * (ABNORMAL) Lipid panel (01/03/2025 8:44 AM CDT) Cholesterol 154 30 - 199 mg/dL Comment: Interpretive Data Ages < or = 19 years Acceptable: <170 mg/dL Borderline high: 170-199 mg/dL High: >or= 200 mg/dL Ages > or = 20 years Desirable: <200 mg/dL Borderline high: 200-239 mg/dL High: >or= 240 mg/dL Literature References: 1. Expert Panel on Integrated Guidelines for Cardiovascular Health and Risk Reduction in Children and Adolescents. Pediatrics 2011;128:S213 2. NCEP Expert Panel. Circulation 2004;110:227 Current Interpretive Data was last revised on 2018. Testing performed by: [facility], [address] [place] [address]., [address] Triglycerides 108 <=149 mg/dL JOSI PRESSLEY ([place]) Comment: Interpretive Data Ages < or = 9 years Acceptable: <75 mg/dL Borderline high: 75-99 mg/dL High: >or= 100 mg/dL Ages 10 to 20 years Acceptable: <90 mg/dL Borderline high: 90-129 mg/dL High: >or= 130 mg/dL Ages > or = 20 years Desirable: <150 mg/dL Borderline high: 150-199 mg/dL High: 200-499 mg/dL Very high: >or= 499 mg/dL Literature References: 1. Expert Panel on Integrated Guidelines for Cardiovascular Health and Risk Reduction in Children and Adolescents. Pediatrics 2011;128:S213 2. NCEP Expert Panel. Circulation 2004;110:227 Current Interpretive Data was last revised on 2018. Testing performed by: [facility], [address] [place] [address]., [address] HDL 34(L) >=40 mg/dL JOSI Pennington ([place]) Comment: Interpretive Data Ages < or = 19 years Acceptable: >45 mg/dL Borderline low: 40-45 mg/dL Low: <40 mg/dL Ages > or = 20 years Desirable: >or= 60 mg/dL Low: <40 mg/dL Literature References: 1. Expert Panel on Integrated Guidelines for Cardiovascular Health and Risk Reduction in Children and Adolescents. Pediatrics 2011;128:S213 2. NCEP Expert Panel. Circulation 2004;110:227 Current Interpretive Data was last revised on 2018. Testing performed by: [facility], [address] [place] [address]., [address] LDL, calculated 100 <=129 mg/dL JOSI PRESSLEY ([place]) Comment: Interpretive Data Ages < or = 19 years Acceptable: <110 mg/dL Borderline high: 110-129 mg/dL High: >or= 130 mg/dL Ages > or = 20 years Optimal: <100 mg/dL Near optimal: 100-129 mg/dL Borderline high: 130-159 mg/dL High: >160 mg/dL Calculated using the Bryon LDL-C estimating equation. This equation was implemented on 2024. Prior to this date LDL-C was estimated using the Friedewald equation. Literature References: 1. Expert Panel on Integrated Guidelines for Cardiovascular Health and Risk Reduction in Children and Adolescents. Pediatrics 2011;128:S213 2. NCEP Expert Panel. Circulation 2004;110:227 3. Bryon Brown al. SUPRIYA Cardiol. 2019January 04;5(5):540-548. doi: 10.1001/[email or web address] Current Interpretive Data was last revised on 2024. Testing performed by: [facility], [address] [place] [address]., [address] Non-HDL Cholesterol 120 mg/dL JOSI PRESSLEY ([place]) Comment: Interpretive Data Ages < or = 19 years Acceptable: <120 mg/dL Borderline high: 120-144 mg/dL High: >145 mg/dL Ages > or = 20 years When triglycerides are >200 mg/dL, Non-HDL cholesterol is a secondary target of therapy with treatment goals that are 30 mg/dL greater than the LDL cholesterol target. Literature References: 1. Expert Panel on Integrated Guidelines for Cardiovascular Health and Risk Reduction in Children and Adolescents. Pediatrics 2011;128:S213 2. NCEP Expert Panel. Circulation 2004;110:227 Current Interpretive Data was last revised on 2018. Testing performed by: [facility], [address] [place] [address]., [address] Chol/HDL ratio 5 JOSE Antonette PRESSLEY ([place]) Comment:Testing performed by : [facility], [address] [place] [address]., [address] Blood 01/03/2025 8:44 AM CDT 01/03/2025 8:45 AM CDT us Mihir Preston MD LAB BLOOD ORDERABLES Danitza wolf Result JOSI WENDIE ([place]) 1 [facility] Department [place] [address] from Last 3 Months or Most Recently Relevant to Health Maintenance Insurance [place] [facility] MEDICARE [facility] MEDICARE [facility] MEDICARE SUPPLEMENT Advance Directives For more information, please contact: [phone] * Full Code (Latest Code Status on File) Date Activated Date Inactivated Comments 05/09/2018 10:29 PM 05/14/2018 4:52 PM * Full Code Date Activated Date Inactivated Comments 04/19/2018 11:53 AM 04/23/2018 12:55 PM Care Teams Check Out Clerk Relationship Specialty Start Date End Date Bienvenido Ku MD 0 [facility] [address] [place] [address] PCP - General 06/29/18 Lucinda Talley, STUDENT MINISTRY PASTOR Planing Machine Operator Physical Therapy 04/08/18
[2025-07-17 12:02] LABS: Hematocrit 46.7 % (42.0-52.0); Hemoglobin 15.2 g/dL (14.0-18.0); Mean Corpuscular HGB Conc 32.5 g/dl (32-36); Mean Corpuscular Hemoglobin 29.7 pg (26-34); Mean Corpuscular Volume 91.4 fl (80-100); Platelet Count Result 186 k/mm3 (150-375); Red Blood Count 5.11 M/mm3 (4.6-6.20); White Blood Count 21.4 K/mm3 (4.5-10.0)
[2025-07-17 12:15] LABS: Alanine Aminotransferase 24 U/L (6-50); Albumin Level 4.0 g/dL (3.5-5.1); Alkaline Phosphatase 64 U/L (38-126); Anion Gap 8 mmol/L (4-12); Aspartate Amino Transferase 21 U/L (17-59); Bilirubin,Total 1.1 mg/dL (0.2-1.3); Blood Urea Nitrogen 30 mg/dL (9-20); Calcium 8.5 mg/dL (8.4-10.2); Carbon Dioxide 19 mmol/L (22-30); Chloride 106 mmol/L (98-107); Estimated Glomerular Filt Rate 34; Glucose 253 mg/dL (65-110); Magnesium 1.9 mg/dL (1.6-2.3); Potassium 6.4 mmol/L (3.4-5.0); Sodium 133 mmol/L (137-145); Total Protein 7.1 g/dL (6.3-8.2)
[2025-07-17 12:18] LABS: INR 1.3; Partial Thromboplastin Time 40.5 Seconds (22.3-36.8); Prothrombin Time 15.6 Seconds (11.1-14.7)
[2025-07-17 12:26] LABS: Troponin I < 0.012 ng/mL (0.000-0.034)
--- NOTE | 2025-07-17 12:37 | PM.IMHP ---
H&P: HPI History of Present Illness Date/Time: 07/17/25 12:37 Chief Complaint: Weakness, dizziness Narrative: 80-year-old male with past medical history of AAA, anxiety, DVT, PE, DM 2, anemia, HTN, CKD presents to the ED on 07/17/2025 with complaints of feeling dizzy. Patient states he got up at about 3:00 a.m. to go to the bathroom and felt very dizzy when he stood up. Denies falling but states he had to call for his to bring her walker so the patient did not fall. Patient states he gets dizzy anytime he stands up. Patient states he did have imaging with contrast yesterday but does not know the reason or what exactly was scanned. Denies chest pain, shortness a breath, weakness, vision changes. Initial vital signs 114/57, HR 80, respirations 20, afebrile and 100% on room air. Lab significant for WBC 21.4, hemoglobin 15.2, and MPV 11, PT 15.5, APTT 40.5. Sodium 133, potassium 6.4, carbon dioxide 19, BUN 30, creatinine 1.89, GFR 34, glucose 253. Troponin 0.012 Urine with specific gravity 1.038, protein 1+, glucose 3+, trace ketones, leukocyte esterase 1+, WBC 11-20, no bacteria seen. Chest x-ray reveals prominent interstitial markings but no focal acute process EKG with sinus rhythm, borderline left axis deviation, poor R-wave progression Review of Systems Review of Systems: All systems reviewed & are unremarkable except as noted in HPI and below PMFSH Past Medical History Medical History AAA (abdominal aortic aneurysm) Colon cancer screening Diabetic neuropathy Overweight (BMI 25.0-29.9) Generalized anxiety disorder DVT (deep venous thrombosis) DM2 (diabetes mellitus, type 2) Hemoglobin A1c 03/16/2020 Chronic anemia Abscess of liver 06/2020 Anemia in chronic kidney disease Dialysis patient May 2018 temporary dialysis due to acute kidney injury following hip replacement surgery complicated by femoral artery pseudoaneurysm due to trauma to the artery from a screw with subsequent transferred to [place]. Essential hypertension PE (pulmonary thromboembolism) 05/09/2018 Type 2 diabetes mellitus with diabetic peripheral angiopathy without gangrene Surgical History Surgical History Hx laparoscopic cholecystectomy 10/14/20 Pseudoaneurysm of femoral artery following procedure Following hip surgery with concomitant abdominal aortic aneurysm with open repair by vascular surgery with concomitant placement of IVC filter 05/09/2018 S/P ERCP 06/21/2020 due to CBD stone seen on cholecystostomy tube cholangiogram as an outpatient. No stones/sludge/debri found during ERCP. S/P IVC filter Placed in 05/09/2018 due to PE IVC filter was subsequently removed due to concerns for infection. History of appendectomy Open appendectomy S/P ORIF (open reduction internal fixation) fracture Right hip with complicated course including femoral artery pseudoaneurysm, Klebsiella a cauda UTI due to urinary retention, DVT, pulmonary embolism, and open vascular repair with IVC filter placement History of tonsillectomy Amputation toe 2nd toe on the right H/O cataract extraction Bilaterally Family History Family History Mother Natural with unknown cause Father Natural with unknown cause Other Diabetes mellitus Hypertension Social History Social History Social History: The patient lives with his . He has 2 step children. He retired from the [employer]. He served in [employer]. He has not had any biological children. Lifelong nonsmoker. Does not use any alcohol or drugs. Primary care physician: Dr. 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 Gender identity (if verbalized by the patient): Male Spiritual care concerns: No Meds Home Medications and Allergies Home Medications ?Medication ?Instructions ?Recorded ?Confirmed ?Type ferrous sulfate 325 mg (65 mg 325 mg PO DAILY 08/22/19 07/17/25 History iron) tablet hydroxyzine HCl 10 mg tablet 10 mg PO TID PRN Anxiety 08/22/19 07/17/25 History rosuvastatin 40 mg tablet 40 mg PO HS 08/22/19 07/17/25 History apixaban 5 mg tablet (Eliquis) 5 mg PO BID #28 tabs 05/08/20 07/17/25 Rx cyanocobalamin (vitamin B-12) 5,000 mcg PO DAILY 06/07/20 07/17/25 History 5,000 mcg capsule fluocinonide 0.05 % topical cream 1 applic topical BID 09/30/20 07/17/25 History insulin glargine 100 unit/mL 50 unit subcut DAILY 11/05/20 07/17/25 History subcutaneous solution (Lantus U-100 Insulin) cholecalciferol (vitamin D3) 50 100 mcg PO DAILY 01/12/22 07/17/25 History mcg (2,000 unit) capsule (Vitamin D3) omega-3 fatty acids-vitamin E 2 cap PO DAILY 01/12/22 03/28/25 History 1,000 mg capsule gabapentin 300 mg capsule 600 mg PO BID 12/11/22 07/17/25 History insulin aspart U-100 100 unit/mL See Rx Instructions subcut TID 06/14/23 07/17/25 History (3 mL) subcutaneous pen (Novolog FlexPen U-100 Insulin aspart) hydrocodone 5 mg-acetaminophen 325 1 - 2 tablet PO Q6H PRN pain #12 03/26/24 03/28/25 Rx mg tablet tabs cyclobenzaprine 10 mg tablet 10 mg PO TID PRN muscle spasm #60 07/03/24 03/28/25 Rx tabs semaglutide 0.25 mg or 0.5 mg (2 0.25 mg (0.368 mL) subcut WEEKLY 07/03/24 03/28/25 Rx mg/3 mL) subcutaneous pen injector #3 mL (Ozempic) ezetimibe 10 mg tablet (Zetia) 10 mg PO DAILY #90 tabs 09/21/24 03/28/25 Rx tirzepatide 2.5 mg/0.5 mL 2.5 mg (0.5 mL) subcut WEEKLY #2 mL 01/09/25 03/28/25 Rx subcutaneous pen injector (Mounjaro) Allergies Allergy/AdvReac Type Severity Reaction Status Date / Time oxycodone AdvReac Intermediate Nausea Verified 07/17/25 14:53 povidone-iodine AdvReac Intermediate Rash Verified 07/17/25 14:53 Vital Signs Vital Signs - 24 hr 07/17/25 10:32 07/17/25 11:30 Temperature 97.8 F Pulse Rate 80 72 Respiratory Rate 20 20 Blood Pressure 114/57 L 122/63 Pulse Oximetry 100 100 Oxygen Delivery Room Air Exam Narrative: GENERAL: non-toxic appearing, in no acute distress. HEAD: Normocephalic, atraumatic. EYES: PERRLA. Conjunctivae clear. NOSE: Normal no drainage. THROAT: Pharynx clear, no exudate. NECK: Trachea midline. No adenopathy, no masses. RESPIRATORY: Airway patent, respirations nonlabored. CTA. CARDIOVASCULAR: Regular rate and rhythm GASTROINTESTINAL: Abdomen is soft and nontender. No organomegaly. Bowel sounds normal in all quadrants. GENITOURINARY: Defer MUSCULOSKELETAL: Moves all extremities. No gross deformities. No calf tenderness. SKIN: Warm, dry, normal color. NEURO: A&O X4. Speech clear PSYCHIATRIC: Normal interaction H&P: Results Labs Labs: Short CBC 07/17/25 Range/Units 11:55 WBC 21.4 H (4.5-10.0) K/mm3 Hgb 15.2 D (14.0-18.0) g/dL Hct 46.7 (42.0-52.0) % Plt Count 186 D (150-375) k/mm3 [facility] 07/17/25 11:55 Sodium 133 L Potassium 6.4 H* Chloride 106 Carbon Dioxide 19 L BUN 30 H Creatinine 1.89 H Glucose 253 H Calcium 8.5 Cardiac Enzymes 07/17/25 Range/Units 11:55 Troponin I < 0.012 (0.000-0.034) ng/mL Liver Function 07/17/25 Range/Units 11:55 Total Bilirubin 1.1 (0.2-1.3) mg/dL AST 21 (17-59) U/L ALT 24 (6-50) U/L Alkaline Phosphatase 64 (38-126) U/L Albumin 4.0 (3.5-5.1) g/dL Assessment and Plan Assessment and plan (1) Hyperkalemia: Code(s): E87.5 - Hyperkalemia Status: Acute Assessment and Plan: Patient presents with dizziness upon standing that began early this morning. Chemistry revealed potassium of 6.4. EKG with sinus rhythm, borderline left axis deviation, poor R-wave progression Hyperkalemia likely due to CKD. In reviewing labs, it is noted that patient is usually on the high side of normal potassium. Cannot fully exclude pseudohyperkalemia - 6 units IV insulin with glucose, Calcium and Bicarb administered in the ED - repeat potassium 5.0 - trend electrolytes (2) Orthostatic hypotension: Code(s): I95.1 - Orthostatic hypotension Status: Acute Assessment and Plan: Patient states he got up at about 3:00 a.m. to go to the bathroom and felt very dizzy when he stood up. Denies falling but states he had to call for his to bring her walker so the patient did not fall. Patient states he gets dizzy anytime he stands up. Labs appear to have a component of hemoconcentration -positive orthostatics: Supine 113/51-sitting 94/50-standing 81/39 -repeat orthostatics in a.m. -1 L NS given in ED. 1 L NS at 150 for 1 L (3) Leukocytosis: Qualifiers: Leukocytosis type: unspecified Qualified Code(s): D72.829 - Elevated white blood cell count, unspecified Code(s): D72.829 - Elevated white blood cell count, unspecified Status: Acute Assessment and Plan: WBC 21.4 on admit. UA negative for infection, chest x-ray negative for acute process. Patient afebrile. Patient states he did have imaging with contrast yesterday but does not know the reason or what exactly was scanned. Unclear etiology. -trend CBC -hold antibiotics as no clear source of infection at this time -records requested from [facility] to follow-up on CT scan -status post 2 L NS (4) Chronic kidney disease: Qualifiers: Chronic kidney disease stage: stage 3 (moderate) Chronic kidney disease stage 3 subtype: stage 3a (GFR 45-59) Qualified Code(s): N18.31 - Chronic kidney disease, stage 3a Code(s): N18.9 - Chronic kidney disease, unspecified Status: Chronic Assessment and Plan: Creatinine 1.89 on admit. Most recent from March 2024 1.58, but patient has been as high as 2.5. GFR 34. UA with 1+ protein. Renal ultrasound May 19, 2024 reads no renal calculus or hydronephrosis. Bilateral renal cortical thinning suggest chronic renal parenchymal disease -trend renal function - monitor I&Os (5) Type 2 diabetes mellitus with diabetic peripheral angiopathy without gangrene: Qualifiers: Diabetes mellitus terminal superintendent insulin use: with group home use Qualified Code(s): E11.51 - Type 2 diabetes mellitus with diabetic peripheral angiopathy without gangrene; Z79.4 - medical terminologist (current) use of insulin Code(s): E11.51 - Type 2 diabetes mellitus with diabetic peripheral angiopathy without gangrene Status: Chronic Assessment and Plan: - hypoglycemia protocol - POC blood glucose ACHS - home medication: NovoLog, Lantus - correct regimen ordered: Lantus 45 units, moderate sliding scale with meals Plan Diet: Consistent carb GI prophylaxis: NA DVT prophylaxis: SCDs lines/drains: PIV Fluids: 1 L NS bolus-normal saline at 150 mL/hr for 1 L Code status: Full Quality VTE Prophylaxis VTE prophylaxis: mechanical ordered Hospitalist MIPS Advance Care Plan I have confirmed that the patient's Advanced Care Plan is present, code status is documented, or surrogate decision maker is listed in patient medical record.: Yes Medication Reconciliation I have utilized all available resources to obtain, update and review the patients current medications (includes all prescriptions, OTC, herbals, cannabis, and nutritional supplements).: Yes
[2025-07-17] MEDS: INSULIN HUMAN REGULAR (*BKC) 100 UNITS/ML 6 UNITS IV PUSH (13:14)
[2025-07-17] MEDS: DEXTROSE 50% 25 GM/50 ML SYRINGE IV PUSH (13:14)
[2025-07-17] MEDS: SODIUM BICARBONATE 8.4% 50 MEQ/50 ML SYRINGE IV PUSH (13:14)
[2025-07-17] MEDS: CALCIUM GLUCONATE 1,000 MG/10 ML VIAL 1000 MG IV PUSH (13:14)
[2025-07-17 13:33] LABS: INR 1.2; Prothrombin Time 14.7 Seconds (11.1-14.7)
[2025-07-17 13:34] LABS: Partial Thromboplastin Time 23.8 Seconds (22.3-36.8)
--- NOTE | 2025-07-17 13:47 | WPCEDHO ---
ED Hand Off Checklist All vitals saved: Y IV Site documented: Y All med administrations documented: Y Triage Note Triage Note brought by ems from home for c/o 07/17/25 10:32 dizziness. pt stated got up at 3am to go to the bathroom and felt very dizzy. Allergies oxycodone Adverse Reaction (Intermediate, Verified 07/17/25 11:04) Nausea povidone-iodine Adverse Reaction (Intermediate, Verified 07/17/25 11:04) Rash IV dye Family History (Last Reviewed 03/28/25 @ 13:17 by Binu Little MD) Mother Natural with unknown cause Father Natural with unknown cause Other Diabetes mellitus Hypertension Administered/Completed Medications Discontinued Medications Calcium Gluconate (Calcium Gluconate 1,000 Mg/10 Ml Vial) 1,000 mg IV PUSH ONCE ONE Stop: 07/17/25 12:27 Last Admin: 07/17/25 13:14 Dose: 1,000 mg Documented By: NICK Dextrose (Dextrose 50% 25 Gm/50 Ml Syringe) 25 gm IV PUSH ONCE ONE Stop: 07/17/25 12:27 Last Admin: 07/17/25 13:14 Dose: 25 gm Documented By: NICK Sodium Chloride (Normal Saline Iv) 1,000 mls @ 999 mls/hr IV CONT .Q1H1M STA Stop: 07/17/25 11:40 Last Infusion: 07/17/25 13:37 Dose: Infused Documented By: W Admin: 07/17/25 11:14 Dose: 999 mls/hr Documented By: NICK Insulin Human Regular (Insulin Human Regular (*Bkc) 100 Units/Ml) 6 units IV PUSH ONCE ONE Stop: 07/17/25 12:27 Last Admin: 07/17/25 13:14 Dose: 6 units Documented By: NICK Co-signed By: PANFILO Sodium Bicarbonate (Sodium Bicarbonate 8.4% 50 Meq/50 Ml Syringe) 50 meq IV PUSH ONCE STA Stop: 07/17/25 12:27 Last Admin: 07/17/25 13:14 Dose: 50 meq Documented By: NICK Interventions/Assessments IV / Saline Lock, Insert Start: 07/17/25 10:10 Freq: Status: Active Protocol: Document 07/17/25 10:45 NICK (Rec: 07/17/25 10:46 NICK [id number]) IV Assessment Peripheral Access Right Antecubital IV Catheter Access Initiated Before Arrival Catheter Gauge 18 IV Insertion 1 Attempts Ultrasound Used for No Placement IV Site Assessment WNL IV Care and WNL Maintenance PA: Cardiovascular Assessment Start: 07/17/25 10:10 Freq: Status: Active Protocol: Document 07/17/25 10:43 SRW (Rec: 07/17/25 10:43 SRW [id number]) Cardiovascular Assessment Cardiovascular None Symptoms Skin Description Normal Color PA: Neurological Assessment Start: 07/17/25 10:10 Freq: Status: Active Protocol: Document 07/17/25 10:44 SRW (Rec: 07/17/25 10:45 SRW [id number]) Neurological Assessment Level of Alert Consciousness Arousable to Verbal Orientation Oriented to Person Neurological None Symptoms Hallucination Type None Unable to Redirect Yes Behavior Patient Able to Comprehend Comprehension Memory Description Intact Ability to Maintain Normal Balance Facial Symmetry Symmetrical Speech Pattern Clear Ability to Swallow Normal Last Vital Signs Temperature 97.8 F 07/17/25 10:32 Pulse Rate 64 07/17/25 13:30 Respiratory Rate 21 H 07/17/25 13:30 Pulse Oximetry 95 07/17/25 13:30 Blood Pressure 100/58 L 07/17/25 13:19 Blood Pressure Mean 72 07/17/25 13:19 Blood Pressure Position Supine 07/17/25 10:32 Oxygen Delivery Room Air 07/17/25 10:32 Weight 106.5 kg 07/17/25 10:32 Last Result - Abnormals Only WBC 21.4 K/mm3 (4.5-10.0) H 07/17/25 11:55 MPV 11.0 fl (7.4-10.4) H 07/17/25 11:55 PT 15.6 Seconds (11.1-14.7) H 07/17/25 11:55 APTT 40.5 Seconds (22.3-36.8) H 07/17/25 11:55 Sodium 133 mmol/L (137-145) L 07/17/25 11:55 Potassium 6.4 mmol/L (3.4-5.0) H* 07/17/25 11:55 Carbon Dioxide 19 mmol/L (22-30) L 07/17/25 11:55 BUN 30 mg/dL (9-20) H 07/17/25 11:55 Creatinine 1.89 mg/dL (0.7-1.3) H 07/17/25 11:55 Estimated GFR 34 (59-) L 07/17/25 11:55 Glucose 253 mg/dL (65-110) H 07/17/25 11:55 POC Capillary Glucose 259 mg/dl (65-105) H 07/17/25 13:13 Most Recent Suicide Severity Rating Suicide Severity Rating NO RISK INDICATED 07/17/25 10:32
[2025-07-17 14:16] LABS: Add Urine Microscopic? YES; Appearance Urine Cloudy (Clear); Glucose Urine UA 3+ mg/dL (Negative); Leukocyte Esterase Ur 1+ LEU/UL (Negative); Nitrate Urine Negative (Negative); Specific Grav Ur 1.038 (1.001-1.035)
--- OUTSIDE RECORDS SUMMARY | 2025-07-17 14:27 | XMS_ITS | Clinical Summary ---
Author Organization [facility] Address [address] [facility] [address] [place] [address] Phone Care Team Providers Care School Cleaner Name Role Phone Dwight Rogers DPM Unavailable Esmeashkan David Henson DO Unavailable [phone] Marizol Og OFFSHORE DIVER, TRIAL EXAMINER Unavailable [phone] Minal Carlson OFFSHORE DIVER, TRIAL EXAMINER Unavailable Provider, None Primary Care Provider Unavailabl [...] CAPS BY MOUTH 3X A DAY Active [place]-3 Fatty Acids (FISH OIL) 1200 MG Capsule [...] Job Start Date Job End Date 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
--- OUTSIDE RECORDS SUMMARY | 2025-07-17 14:27 | XMS_ITS | Clinical Summary ---
Author Organization [facility] Address [address] [place] [id number] Phone Care Team Providers Care Fishery Division Chief Name Role Phone Bienvenido Ku MD Primary Care Provider [phone] Allergies Active Allergy Reactions Criticality Noted Date Comments Atorvastatin Other (see comments) 03/17/2019 Reaction: cramps, Prednisone & Diphenhydramine Rash Low 08/12/2022 Oxycodone Nausea And Vomiting Low 07/26/2018 Medications rosuvastatin (CRESTOR) 20 MG tablet Take 40 mg by mouth daily Active Polyvinyl Alcohol 1.4 % solution Administer 1 drop into affected eye(s) 2 times daily Active [place]-3 Fatty Acids (OMEGA-3 2100) 1050 MG capsule [...] Comments Blood Pressure 118/70 08/12/2022 1:16 PM HAND CLERICAL VERIFIER Pulse 60 08/12/2022 1:16 PM HAND CLERICAL VERIFIER Temperature 36.8 C (98.3 F) 08/12/2022 1:16 PM HAND CLERICAL VERIFIER Respiratory Rate - - Oxygen Saturation - - Inhaled Oxygen Concentration - - Weight 104 kg (229 lb) 08/12/2022 1:16 PM HAND CLERICAL VERIFIER Height 182.9 cm (6') 08/12/2022 1:16 PM HAND CLERICAL VERIFIER Body Mass Index 31.06 08/12/2022 1:16 PM HAND CLERICAL VERIFIER Plan of Treatment Health Maintenance Due Date Last Done Comments Influenza Vaccine (#1) 2025 2, 06/10/2021, 06/06/2020, Additional history exists Pneumococcal PPSV23/PCV13 65 + Years / Low and Medium Risk Completed 07/19/2016, 09/06/2010, 05/05/[address] [facility] Care Teams Fishery Division Chief Relationship Specialty Start Date End Date Bienvenido Ku MD [address] [place] [id number] PCP - General Family Medicine 03/22/19
--- OUTSIDE RECORDS SUMMARY | 2025-07-17 14:27 | XMS_ITS | Clinical Summary ---
Author Organization [facility] Address [address] [place] [address] Care Team Providers Care Corporate Travel Manager Name Role Phone MayankLucindaSyed WOLFE Unavailable Unavailable Bienvenido Ku MD Primary Care Provider Allergies Active Allergy Reactions Criticality Noted Date [...] 20 Units under the skin daily. Active zysam-5-ghh-epa- dpa-fish oil 1,050-1,200 mg capsule Take 2 [...] (05/09/2018): Added automatically from request for surgery [id number] Acute pain 05/09/2018 History of total right hip arthroplasty 04/20/20 18 Assessment & Plan (05/09/2018 11:01 AM CDT): R hip arthroplasty performed for OA refractory to conservative management on 04/19. Assessment & Plan (04/20/2018 4:34 AM CDT): Postop day #0, doing well Pain management with oral [place], will give morphine 3 mg every 4 [...] on file Legal Sex Male 8:02 PM PET CAREGIVER Gender Identity Not on file Sexual Orientation Not on file Last Filed Vital Signs Vital Sign Reading Time Taken Comments Blood Pressure 119/90 07/26/2018 2:45 PM PET CAREGIVER Pulse 90 07/26/2018 2:45 PM PET CAREGIVER Temperature 37.1 C (98.7 F) 07/26/2018 10:32 AM PET CAREGIVER Respiratory Rate 18 07/26/2018 2:45 PM PET CAREGIVER Oxygen Saturation 100% 07/26/2018 2:45 PM PET CAREGIVER Inhaled Oxygen Concentration - - Weight 84.8 kg (187 lb) 07/26/2018 10:32 AM PET CAREGIVER Height 182.9 cm (6') 07/26/2018 10:32 AM PET CAREGIVER Body Mass Index 25.36 07/26/2018 10:32 AM PET CAREGIVER Plan of Treatment Health Maintenance Due Date [...] history exists Medical Devices Implanted Type Area Credit Card Control Clerk Device Identifier Shelf Expiration Date Model / Serial / Lot [employer] 1235-2-541 Adm Mobile Bearing Hip Temple 54mm Peripheral Self Lock - [id number] Implanted:Qty: 1 on 04/19/2018 by Ross Bentley MD at [facility] Right: Hip [employer] 08/10/2021 1235-2-541 / / [id number] [employer] [id number] Accolade 105mm 35mm Modular Hip 127d 4 Taper Stem Femoral Sterile - [id number] Implanted:Qty: 1 on 04/19/2018 by Ross Bentley MD at [facility] Right: Hip [employer] 01/27/2023 [id number] / / [id number] [employer] [id number] Adm Mobile Bearing Hip Temple 48mm 54mm 28mm 9.9mm Hip - [id number] Implanted:Qty: 1 on 04/19/2018 by Ross Bentley MD at [facility] Right: Hip [employer] 01/29/2021 [id number] / / [id number] [employer] [id number] V40; Lfit Od28 Mm Hip -4 Mm; Offset; Taper Head Femoral Cocr - [id number] Implanted:Qty: 1 on 04/19/2018 by Ross Bentley MD at [facility] Right: Hip [employer] 04/08/2022 [id number] / / [id number] [employer] [id number] Davison Delivery Kit Vena Cava Femoral Filter Embolization Nitinol Latex Free - [id number] Implanted:Qty: 1 on 05/09/2018 by Scout Farah MD PhD at [facility] N/A: Femur [employer] [id number] 04/05/2021 [id number] / / [id number] Procedures Procedure Name Priority Date/Time Associated Diagnosis [...] was last reviewed 2021. Testing performed by: [facility], [address] [place] [address], [place]., [address] Blood 01/03/2025 8:44 AM CDT 01/03/2025 3:50 PM CDT us Mihir Preston MD LAB BLOOD ORDERABLES Danitza wolf Result JOSI PRESSLEY ([place]) 1 [facility] Department [place] [address] * Albumin Creatinine Ratio, Urine (01/03/2025 8:44 AM CDT) Albumin Ur 20.4 mg/L Comment: Interpretive Data No reference range established. Current interpretive data was last revised 2019. Testing performed by: [facility], [address] [place] [address], [place] [address] Creatinine Ur 145.5 mg/dL JOSI PRESSLEY ([place]) Comment: Interpretive Data No reference range established. Current interpretive data was last revised 2019. Testing performed by: [facility], [address] [place] [address]., [address] Albumin Creatinine Ratio, Ur 14 1 - 29 mg/g JOSI PRESSLEY ([place]) Comment:Testing performed by : [address] [address] Urine 01/03/2025 8:44 AM CDT 01/03/2025 8:45 AM CDT us Mihir Preston MD LAB URINE ORDERABLES Danitza wolf Result [facility] WENDIE ([place]) 1 [facility] [place] [address] * (ABNORMAL) Hemoglobin A1c (01/03/2025 8:44 AM CDT) Pathologist [facility] Hgb A1C 8.4(H) 4.0 - 5.6 % Comment:Testing performed by : [address] [place] [address] Estimated Average Glucose 194 mg/dL JOSI PRESSLEY ([place]) Comment: The ADA recommends reporting an estimated Average Glucose (eAG) with all Hemoglobin A1c results using the equation derived from a study of 507 normal and diabetic adults. Minority populations were underrepresented and children were not included. (Diabetes Care 31:6690-0053, 2008). The eAG is not equivalent to a fasting glucose. Testing performed by: [address] [place] [address] Blood 01/03/2025 8:44 AM CDT 01/03/2025 8:45 AM CDT us Mihir Preston MD LAB BLOOD ORDERABLES Danitza luciano Result JOSI PRESSLEY ([place]) 1 [facility] Department [place] [address] * (ABNORMAL) Lipid panel (01/03/2025 8:44 AM [...] last revised on 2018. Testing performed by: [facility], [address] [place] [address]., [address] Triglycerides 108 <=149 mg/dL JOSI PRESSLEY ([place]) [...] last revised on 2018. Testing performed by: [facility], [address] [place] [address]., [address] HDL 34(L) >=40 mg/dL JOSI Pennington ([place]) [...] last revised on 2018. Testing performed by: [facility], [address] [place] [address]., [address] LDL, calculated 100 <=129 mg/dL JOSI PRESSLEY [...] last revised on 2024. Testing performed by: [facility], [address] [place] [address]., [address] Non-HDL Cholesterol 120 mg/dL JOSI PRESSLEY ([place]) [...] last revised on 2018. Testing performed by: [facility], [address] [place] [address]., [address] Chol/HDL ratio 5 JOSE Antonette PRESSLEY ([place]) Comment:Testing performed by : [facility], [address] [place] [address]., [address] Blood 01/03/2025 8:44 AM CDT 01/03/2025 8:45 AM CDT us Mihir Preston MD LAB BLOOD ORDERABLES Danitza wolf Result JOSI [place]END[place] ([place]) 1 [facility] [place] [address] from Last 3 Months or Most Recently Relevant to Health Maintenance Insurance [employer] [place] [employer] [place] [facility] MEDICARE [facility] MEDICARE [facility] MEDICARE SUPPLEMENT Advance Directives For more information, please contact: [phone] * Full Code (Latest Code Status on File) Date Activated Date Inactivated Comments 05/09/2018 10:29 PM 05/14/2018 4:52 PM * Full Code Date Activated Date Inactivated Comments 04/19/2018 11:53 AM 04/23/2018 12:55 PM Care Teams Corporate Travel Manager Relationship Specialty Start Date End Date Bienvenido Ku MD [address] [place] [address] PCP - General 06/29/18 Lucinda Talley, ORDNANCE TRUCK INSTALLATION SUPERVISOR Chemical Test Engineer Physical Therapy 04/08/18
--- NOTE | 2025-07-17 14:37 | ADMGEN ---
This patient, Chandan Shetty, was admitted to Medical Room 259-01. Patient/family oriented to hospital policies and general routines including ID bracelet, bed and alarms, visiting hours, pain management, procedures, bathroom and other care routines, personal items, smoking policy, room service/diet, and visiting hours. Information on how to activate the Rapid Response Team has been discussed. Patient/Family are encouraged to report perceived risks to care and to ask questions if they do not understand what they are told or what they should do.
[2025-07-17 15:13] LABS: Anion Gap 9 mmol/L (4-12); Blood Urea Nitrogen 29 mg/dL (9-20); Calcium 8.3 mg/dL (8.4-10.2); Carbon Dioxide 20 mmol/L (22-30); Chloride 106 mmol/L (98-107); Estimated CRCL calculation 36 ml/min; Estimated Glomerular Filt Rate 36; Glucose 226 mg/dL (65-110); Potassium 5.0 mmol/L (3.4-5.0); Sodium 135 mmol/L (137-145)
[2025-07-17] MEDS: ENOXAPARIN 40 MG/0.4 ML SYRINGE SUB-Q (15:14)
[2025-07-17 15:21] LABS: CRP 3.2 mg/dL (<1.0)
--- NOTE | 2025-07-17 15:49 | PC.NURSE ---
Unable to get full medication list, pt is a poor historian and unsure of medications he takes. [facility] not [facility]. Called [facility] in [place] and they didn't have an recent medications filled.
[2025-07-17] MEDS: INSULIN ASPART (*BKC) 100 UNITS/ML SUB-Q (17:34)
[2025-07-17] MEDS: SODIUM CHLORIDE 0.9% IV 1,000 ML 150 ML IV CONT (18:40)
[2025-07-17] MEDS: INSULIN GLARGINE (*BKC) 100 UNITS/ML 45 UNITS SUB-Q (20:21)
[2025-07-17] MEDS: GABAPENTIN 300 MG CAPSULE 600 MG PO (20:27)
[2025-07-17] MEDS: ROSUVASTATIN 20 MG TABLET 40 MG PO (20:28)
[2025-07-17 20:53] LABS: Hematocrit 42.3 % (42.0-52.0); Hemoglobin 13.8 g/dL (14.0-18.0); Immature Granulocyte Percent A 0.4 % (0-0.5); Lymphocytes Absolute Auto 1.62 K/mm3 (0.9-3.2); Mean Corpuscular HGB Conc 32.6 g/dl (32-36); Mean Corpuscular Hemoglobin 29.2 pg (26-34); Mean Corpuscular Volume 89.4 fl (80-100); Nucleated Red Blood Cells Absolute Auto 0.000 K/mm3 (0.0-0.012); Nucleated Red Blood Cells Perc 0.0 % (0.0-0.2); Platelet Count Result 177 k/mm3 (150-375); Red Blood Count 4.73 M/mm3 (4.6-6.20); White Blood Count 13.5 K/mm3 (4.5-10.0)
[2025-07-17 21:24] LABS: Anion Gap 6 mmol/L (4-12); Blood Urea Nitrogen 34 mg/dL (9-20); Calcium 8.2 mg/dL (8.4-10.2); Carbon Dioxide 22 mmol/L (22-30); Chloride 105 mmol/L (98-107); Estimated CRCL calculation 35 ml/min; Estimated Glomerular Filt Rate 34; Glucose 265 mg/dL (65-110); Magnesium 1.8 mg/dL (1.6-2.3); Potassium 4.9 mmol/L (3.4-5.0); Sodium 133 mmol/L (137-145)
[2025-07-17 21:34] LABS: Thyroid Stimulating Hormone Reflex 2.610 uIU/mL (0.465-4.68)
[2025-07-18] VITALS (9 sets, daily range): BP systolic 110–129; BP diastolic 54–62; PULSE 69–87; RESP 16; TEMP 36.6; O2SAT 96–97
[2025-07-18 04:29] LABS: Hematocrit 41.7 % (42.0-52.0); Hemoglobin 13.4 g/dL (14.0-18.0); Immature Granulocyte Percent A 0.4 % (0-0.5); Lymphocytes Absolute Auto 1.47 K/mm3 (0.9-3.2); Mean Corpuscular HGB Conc 32.1 g/dl (32-36); Mean Corpuscular Hemoglobin 29.4 pg (26-34); Mean Corpuscular Volume 91.4 fl (80-100); Nucleated Red Blood Cells Absolute Auto 0.000 K/mm3 (0.0-0.012); Nucleated Red Blood Cells Perc 0.0 % (0.0-0.2); Platelet Count Result 171 k/mm3 (150-375); Red Blood Count 4.56 M/mm3 (4.6-6.20); White Blood Count 11.3 K/mm3 (4.5-10.0)
[2025-07-18 04:38] LABS: Anion Gap 7 mmol/L (4-12); Blood Urea Nitrogen 37 mg/dL (9-20); Calcium 8.2 mg/dL (8.4-10.2); Carbon Dioxide 20 mmol/L (22-30); Chloride 107 mmol/L (98-107); Estimated CRCL calculation 35 ml/min; Estimated Glomerular Filt Rate 34; Glucose 218 mg/dL (65-110); Potassium 4.8 mmol/L (3.4-5.0); Sodium 134 mmol/L (137-145)
[2025-07-18] MEDS: FERROUS SULFATE 325 MG TABLET BY MOUTH (08:20)
[2025-07-18] MEDS: CHOLECALCIFEROL (VITAMIN D3) 25 MCG (1,000 UNITS) TABLET 100 MCG PO (08:20)
[2025-07-18] MEDS: CYANOCOBALAMIN 1,000 MCG TABLET 5000 MCG PO (08:20)
[2025-07-18] MEDS: APIXABAN 5 MG TABLET PO (08:20)
[2025-07-18] MEDS: GABAPENTIN 300 MG CAPSULE 600 MG PO (08:20)
[2025-07-18] MEDS: INSULIN ASPART (*BKC) 100 UNITS/ML SUB-Q ×2 (08:22→12:18)
--- NOTE | 2025-07-18 09:00 | PM.IMPN ---
Progress Note: A&P Assessment and Plan (1) Hyperkalemia: Code(s): E87.5 - Hyperkalemia Status: Acute Assessment and Plan: Patient presents with dizziness upon standing that began early this morning. Chemistry revealed potassium of 6.4. EKG with sinus rhythm, borderline left axis deviation, poor R-wave progression Hyperkalemia likely due to CKD. In reviewing labs, it is noted that patient is usually on the high side of normal potassium. Cannot fully exclude pseudohyperkalemia - 6 units IV insulin with glucose, Calcium and Bicarb administered in the ED - repeat potassium 5.0 - trend electrolytes 07/18: 4.8 today, continue to monitor (2) Orthostatic hypotension: Code(s): I95.1 - Orthostatic hypotension Status: Acute Assessment and Plan: Patient states he got up at about 3:00 a.m. to go to the bathroom and felt very dizzy when he stood up. Denies falling but states he had to call for his to bring her walker so the patient did not fall. Patient states he gets dizzy anytime he stands up. Labs appear to have a component of hemoconcentration -positive orthostatics: Supine 113/51-sitting 94/50-standing 81/39 -repeat orthostatics in a.m. -1 L NS given in ED. 1 L NS at 150 for 1 L 07/18: WDL today Supine: 129/61, 73bpm Sittin/62, 74bpm Standin/54, 87bpm -Reports he is feeling 150% better today, he states that he wants to get up and walk around the halls. Pt also denies dizziness or any other sx, including CP and SOB. He thinks the dizziness spell was due to receiving contrast yesterday for the unknown CT scan. -Discharge today, dizziness and initial orthostatic VS probably due to acute dehydration. Educated pt on importance of keeping hydrated. Pt agreeable and will f/u with PCP. (3) Leukocytosis: Qualifiers: Leukocytosis type: unspecified Qualified Code(s): D72.829 - Elevated white blood cell count, unspecified Code(s): D72.829 - Elevated white blood cell count, unspecified Status: Acute Assessment and Plan: WBC 21.4 on admit. UA negative for infection, chest x-ray negative for acute process. Patient afebrile. Patient states he did have imaging with contrast yesterday but does not know the reason or what exactly was scanned. Unclear etiology. -trend CBC -hold antibiotics as no clear source of infection at this time -[facility] -status post 2 L NS 07/18: WBC continues to downtrend, 13.5-->11.3 today. -No signs of infection (4) Chronic kidney disease: Qualifiers: Chronic kidney disease stage: stage 3 (moderate) Chronic kidney disease stage 3 subtype: stage 3a (GFR 45-59) Qualified Code(s): N18.31 - Chronic kidney disease, stage 3a Code(s): N18.9 - Chronic kidney disease, unspecified Status: Chronic Assessment and Plan: Creatinine 1.89 on admit. Most recent from March 2024 1.58, but patient has been as high as 2.5. GFR 34. UA with 1+ protein. Renal ultrasound May 19, 2024 reads no renal calculus or hydronephrosis. 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 Plan Discharge home today. No changes to meds. F/u with PCP for repeat labs and CT interpretation. Time Spent With Patient Time: 40 Subjective Date/time seen: 07/18/25 Review of Systems Review of Systems: All systems reviewed & are unremarkable except as noted in HPI and below Exam Narrative: GENERAL: non-toxic appearing, in no acute distress. HEAD: Normocephalic, atraumatic. EYES: PERRLA. Conjunctivae clear. NOSE: Normal no drainage. THROAT: Pharynx clear, no exudate. NECK: Trachea midline. No adenopathy, no masses. RESPIRATORY: Airway patent, respirations nonlabored. CTA. CARDIOVASCULAR: Regular rate and rhythm, TELE 76 bpm GASTROINTESTINAL: Abdomen is soft and nontender. No organomegaly. Bowel sounds normal in all quadrants. GENITOURINARY: Defer MUSCULOSKELETAL: Moves all extremities. No gross deformities. No calf tenderness. SKIN: Warm, dry, normal color. NEURO: A&O X4. Speech clear PSYCHIATRIC: Normal interaction Objective Data Vital Signs Vital Signs: Vital Signs - 24 hr 07/17/25 10:32 07/17/25 11:30 07/17/25 11:38 Temperature 97.8 F Pulse Rate 80 72 72 Respiratory Rate 20 20 22 H Blood Pressure 114/57 L 122/63 Pulse Oximetry 100 100 98 Oxygen Delivery Room Air 07/17/25 11:45 07/17/25 12:00 07/17/25 12:28 Temperature Pulse Rate 73 69 68 Respiratory Rate 23 H 20 20 Blood Pressure Pulse Oximetry 99 100 95 Oxygen Delivery 07/17/25 12:46 07/17/25 13:00 07/17/25 13:12 Temperature Pulse Rate 79 86 72 Respiratory Rate 22 H 22 H 20 Blood Pressure 98/57 L Pulse Oximetry 100 99 99 Oxygen Delivery 07/17/25 13:15 07/17/25 13:16 07/17/25 13:19 Temperature Pulse Rate 75 70 71 Respiratory Rate 22 H 21 H 20 Blood Pressure 100/58 L 100/58 L Pulse Oximetry 98 99 98 Oxygen Delivery 07/17/25 13:30 07/17/25 14:38 07/17/25 14:40 Temperature 97.8 F Pulse Rate 64 73 73 Respiratory Rate 21 H Blood Pressure 92/56 L 94/50 L Pulse Oximetry 95 100 100 Oxygen Delivery 07/17/25 14:45 07/17/25 14:51 07/17/25 15:04 Temperature 97.8 F Pulse Rate 73 92 73 Respiratory Rate 17 18 Blood Pressure 81/39 L 140/72 113/51 L Pulse Oximetry 100 100 100 Oxygen Delivery 07/17/25 15:15 07/17/25 16:00 07/17/25 20:00 Temperature Pulse Rate 79 Respiratory Rate Blood Pressure Pulse Oximetry Oxygen Delivery Room Air Room Air 07/17/25 20:00 07/17/25 20:27 07/18/25 00:00 Temperature 98.6 F Pulse Rate 85 86 81 Respiratory Rate 16 Blood Pressure 106/53 L Pulse Oximetry 96 Oxygen Delivery 07/18/25 04:00 07/18/25 05:39 07/18/25 08:31 Temperature 97.8 F Pulse Rate 85 80 Respiratory Rate 16 Blood Pressure 120/57 L Pulse Oximetry 96 97 Oxygen Delivery Room Air Intake/Output Intake/Output: Intake & Output 07/15/25 07/16/25 07/17/25 07/18/25 23:59 23:59 23:59 23:59 Intake Total 1480 220 Balance 1480 220 Meds/Results Medications: Active Medications Generic Name Dose Route Start Last Admin Trade Name Freq PRN Reason Stop Dose Admin Hydrocodone Bitart/Acetaminophen 1 tab 07/17/25 16:43 Hydrocodone/Acetaminophen (*Crx) 5-325 Mg Tablet PO Q6H PRN Pain Rated 4-6 Apixaban 5 mg 07/18/25 09:00 07/18/25 08:20 Apixaban 5 Mg Tablet PO 5 mg Q12HR MARILYN Administration Cyanocobalamin 5,000 mcg 07/18/25 09:00 07/18/25 08:20 Cyanocobalamin 1,000 Mcg Tablet PO 5,000 mcg DAILY MARILYN Administration Dextrose 12.5 gm 07/17/25 10:40 Dextrose 50% 25 Gm/50 Ml Syringe IV PUSH PRN PRN Hypoglycemia Protocol Ferrous Sulfate 325 mg 07/18/25 09:00 07/18/25 08:20 Ferrous Sulfate 325 Mg Tablet BY MOUTH 325 mg DAILY MARILYN Administration Gabapentin 600 mg 07/17/25 21:00 07/18/25 08:20 Gabapentin 300 Mg Capsule PO 600 mg Q12HR MARILYN Administration Glucagon 1 mg 07/17/25 10:40 Glucagon For Inj 1 Mg Vial IM PRN PRN Hypoglycemia Protocol Glucose 15 gm 07/17/25 10:40 Glucose Oral Gel 15 Gm Of Glucse In 37.5 Gm Tube PO PRN PRN Hypoglycemia Protocol Hydroxyzine HCl 10 mg 07/17/25 16:35 Hydroxyzine Hcl 10 Mg Tablet PO TID PRN Anxiety Dextrose 1,000 mls @ 100 mls/hr 07/17/25 10:40 Dextrose 5% 1,000 Ml IVPB PRN PRN Hypoglycemia Protocol Insulin Aspart 3 - 6 units 07/17/25 17:00 07/18/25 08:22 Insulin Aspart (*Bkc) 100 Units/Ml SUB-Q 3 units TIDWM MARILYN Administration Protocol Insulin Glargine 45 units 07/17/25 21:00 07/17/25 20:21 Insulin Glargine (*Bkc) 100 Units/Ml SUB-Q 45 units HS MARILYN Administration Rosuvastatin Calcium 40 mg 07/17/25 21:00 07/17/25 20:28 Rosuvastatin 20 Mg Tablet PO 40 mg HS MARILYN Administration Vitamin D 100 mcg 07/18/25 09:00 07/18/25 08:20 Cholecalciferol (Vitamin D3) 25 Mcg (1,000 Units) Tablet PO 100 mcg DAILY MARILYN Administration Radiology Results: ITS Impressions Chest X-Ray 07/17/25 12:55 IMPRESSION: 1. Prominent interstitial markings but no focal acute process. Labs Labs: Laboratory Results - last 24 hr 07/17/25 07/17/25 07/17/25 11:44 11:55 13:01 WBC 21.4 H RBC 5.11 Hgb 15.2 D Hct 46.7 MCV 91.4 MCH 29.7 MCHC 32.5 RDW 14.3 Plt Count 186 D MPV 11.0 H Immature Gran % (Auto) Not Reportable Neut % (Auto) Not Reportable Lymph % (Auto) Not Reportable Cassia % (Auto) Not Reportable Eos % (Auto) Not Reportable Baso % (Auto) Not Reportable Lymph # (Auto) Not Reportable Cassia # (Auto) Not Reportable Eos # (Auto) Not Reportable Baso # (Auto) Not Reportable Abs Immat Gran (auto) Not Reportable Absolute Neuts (auto) Not Reportable Absolute Nucleated RBC Not Reportable Nucleated RBC % Not Reportable ESR PT 15.6 H 14.7 INR 1.3 1.2 APTT 40.5 H 23.8 Sodium 133 L Potassium 6.4 H* Chloride 106 Carbon Dioxide 19 L Anion Gap 8 BUN 30 H Creatinine 1.89 H Estim Creat Clear Calc Not Reportable Estimated GFR 34 L Glucose 253 H POC Capillary Glucose 215 H Lactic Acid 1.7 Calcium 8.5 Magnesium 1.9 Total Bilirubin 1.1 AST 21 ALT 24 Alkaline Phosphatase 64 Troponin I < 0.012 C-Reactive Protein 3.2 H Total Protein 7.1 Albumin 4.0 TSH (Reflex) Urine Color Urine Appearance Urine pH Ur Specific [place] Urine Protein Urine Glucose (UA) Urine Ketones Ur Blood (Man) Urine Nitrate Urine Bilirubin Urine Urobilinogen Leukocyte Esterase Rfl Urine RBC Urine WBC Ur Squamous Epith Cells Urine Bacteria Urine Casts 07/17/25 07/17/25 07/17/25 13:13 14:03 14:24 WBC RBC Hgb Hct MCV MCH MCHC RDW Plt Count MPV Immature Gran % (Auto) Neut % (Auto) Lymph % (Auto) Cassia % (Auto) Eos % (Auto) Baso % (Auto) Lymph # (Auto) Cassia # (Auto) Eos # (Auto) Baso # (Auto) Abs Immat Gran (auto) Absolute Neuts (auto) Absolute Nucleated RBC Nucleated RBC % ESR PT INR APTT Sodium Potassium Chloride Carbon Dioxide Anion Gap BUN Creatinine Estim Creat Clear Calc Estimated GFR Glucose POC Capillary Glucose 259 H 314 H Lactic Acid Calcium Magnesium Total Bilirubin AST ALT Alkaline Phosphatase Troponin I C-Reactive Protein Total Protein Albumin TSH (Reflex) Urine Color Yellow Urine Appearance Cloudy H Urine pH 5.5 Ur Specific [place] 1.038 H Urine Protein 1+ H Urine Glucose (UA) 3+ H Urine Ketones Trace H Ur Blood (Man) Negative Urine Nitrate Negative Urine Bilirubin Negative Urine Urobilinogen 0.2 Leukocyte Esterase Rfl 1+ H Urine RBC 0-2 Urine WBC 11-20 H Ur Squamous Epith Cells None seen Urine Bacteria None seen Urine Casts 3-5 07/17/25 07/17/25 07/17/25 14:58 16:33 20:18 WBC RBC Hgb Hct MCV MCH MCHC RDW Plt Count MPV Immature Gran % (Auto) Neut % (Auto) Lymph % (Auto) Cassia % (Auto) Eos % (Auto) Baso % (Auto) Lymph # (Auto) Cassia # (Auto) Eos # (Auto) Baso # (Auto) Abs Immat Gran (auto) Absolute Neuts (auto) Absolute Nucleated RBC Nucleated RBC % ESR PT INR APTT Sodium 135 L Potassium 5.0 Chloride 106 Carbon Dioxide 20 L Anion Gap 9 BUN 29 H Creatinine 1.83 H Estim Creat Clear Calc 36 Estimated GFR 36 L Glucose 226 H POC Capillary Glucose 222 H 270 H Lactic Acid Calcium 8.3 L Magnesium Total Bilirubin AST ALT Alkaline Phosphatase Troponin I C-Reactive Protein Total Protein Albumin TSH (Reflex) Urine Color Urine Appearance Urine pH Ur Specific [place] Urine Protein Urine Glucose (UA) Urine Ketones Ur Blood (Man) Urine Nitrate Urine Bilirubin Urine Urobilinogen Leukocyte Esterase Rfl Urine RBC Urine WBC Ur Squamous Epith Cells Urine Bacteria Urine Casts 07/17/25 07/18/25 07/18/25 20:48 03:43 07:48 WBC 13.5 H 11.3 H RBC 4.73 4.56 L Hgb 13.8 L 13.4 L Hct 42.3 41.7 L MCV 89.4 91.4 MCH 29.2 29.4 MCHC 32.6 32.1 RDW 14.2 14.4 Plt Count 177 171 MPV 10.5 H 11.6 H Immature Gran % (Auto) 0.4 0.4 Neut % (Auto) 78.1 H 74.6 H Lymph % (Auto) 12.0 L 13.0 L Cassia % (Auto) 4.7 5.8 Eos % (Auto) 4.7 H 6.1 H Baso % (Auto) 0.1 L 0.1 L Lymph # (Auto) 1.62 1.47 Cassia # (Auto) 0.6 0.7 H Eos # (Auto) 0.6 H 0.7 H Baso # (Auto) 0.0 0.0 Abs Immat Gran (auto) 0.06 H 0.05 H Absolute Neuts (auto) 10.6 H 8.5 H Absolute Nucleated RBC 0.000 0.000 Nucleated RBC % 0.0 0.0 ESR 10 PT INR APTT Sodium 133 L 134 L Potassium 4.9 4.8 Chloride 105 107 Carbon Dioxide 22 20 L Anion Gap 6 7 BUN 34 H 37 H Creatinine 1.89 H 1.92 H Estim Creat Clear Calc 35 35 Estimated GFR 34 L 34 L Glucose 265 H 218 H POC Capillary Glucose 234 H Lactic Acid Calcium 8.2 L 8.2 L Magnesium 1.8 Total Bilirubin AST ALT Alkaline Phosphatase Troponin I C-Reactive Protein Total Protein Albumin TSH (Reflex) 2.610 Urine Color Urine Appearance Urine pH Ur Specific [place] Urine Protein Urine Glucose (UA) Urine Ketones Ur Blood (Man) Urine Nitrate Urine Bilirubin Urine Urobilinogen Leukocyte Esterase Rfl Urine RBC Urine WBC Ur Squamous Epith Cells Urine Bacteria Urine Casts Quality VTE Prophylaxis VTE prophylaxis: pharmacologic ordered
--- NOTE | 2025-07-18 12:58 | P.DS_ITS ---
DS: Admitting Diagnosis Discharge Date 07/18/2025 Admitting Diagnosis Dizziness, hyperkalemia DS: Discharge Diagnosis Discharge Diagnosis (1) Hyperkalemia: Code(s): E87.5 - Hyperkalemia Status: Acute Assessment and Plan: Patient presents with dizziness upon standing that began early this morning. Chemistry revealed potassium of 6.4. EKG with sinus rhythm, borderline left axis deviation, poor R-wave progression Hyperkalemia likely due to CKD. In reviewing labs, it is noted that patient is usually on the high side of normal potassium. Cannot fully exclude pseudohyperkalemia - 6 units IV insulin with glucose, Calcium and Bicarb administered in the ED - repeat potassium 5.0 - trend electrolytes 07/18: 4.8 today, continue to monitor outpt with PCP. Denies CP and SOB or any other sx. (2) Orthostatic hypotension: Code(s): I95.1 - Orthostatic hypotension Status: Acute Assessment and Plan: Patient states he got up at about 3:00 a.m. to go to the bathroom and felt very dizzy when he stood up. Denies falling but states he had to call for his to bring her walker so the patient did not fall. Patient states he gets dizzy anytime he stands up. Labs appear to have a component of hemoconcentration -positive orthostatics: Supine 113/51-sitting 94/50-standing 81/39 -repeat orthostatics in a.m. -1 L NS given in ED. 1 L NS at 150 for 1 L 07/18: WDL today Supine: 129/61, 73bpm Sittin/62, 74bpm Standin/54, 87bpm -Reports he is feeling 150% better today, he states that he wants to get up and walk around the halls. Pt also denies dizziness or any other sx, including CP and SOB. He thinks the dizziness spell was due to receiving contrast yesterday for the unknown CT scan. -Discharge today, dizziness and initial orthostatic VS probably due to acute dehydration. Educated pt on importance of keeping hydrated. Pt agreeable and will f/u with PCP. (3) Leukocytosis: Qualifiers: Leukocytosis type: unspecified Qualified Code(s): D72.829 - Elevated white blood cell count, unspecified Code(s): D72.829 - Elevated white blood cell count, unspecified Status: Acute Assessment and Plan: WBC 21.4 on admit. UA negative for infection, chest x-ray negative for acute process. Patient afebrile. Patient states he did have imaging with contrast yesterday but does not know the reason or what exactly was scanned. Unclear etiology. -trend CBC -hold antibiotics as no clear source of infection at this time -records requested from [place] to follow-up on CT scan -status post 2 L NS 07/18: WBC continues to downtrend, 13.5-->11.3 today. -No signs of infection (4) Chronic kidney disease: Qualifiers: Chronic kidney disease stage: stage 3 (moderate) Chronic kidney disease stage 3 subtype: stage 3a (GFR 45-59) Qualified Code(s): N18.31 - Chronic kidney disease, stage 3a Code(s): N18.9 - Chronic kidney disease, unspecified Status: Chronic Assessment and Plan: Creatinine 1.89 on admit. Most recent from March 2024 1.58, but patient has been as high as 2.5. GFR 34. UA with 1+ protein. Renal ultrasound May 19, 2024 reads no renal calculus or hydronephrosis. Bilateral renal cortical thinning suggest chronic renal parenchymal disease -trend renal function with PCP -monitor I&Os (5) Type 2 diabetes mellitus with diabetic peripheral angiopathy without gangrene: Qualifiers: Diabetes mellitus mcfp insulin use: with moth exterminator use Qualified Code(s): E11.51 - Type 2 diabetes mellitus with diabetic peripheral angiopathy without gangrene; Z79.4 - extermination supervisor (current) use of insulin Code(s): E11.51 - Type 2 diabetes mellitus with diabetic peripheral angiopathy without gangrene Status: Chronic Assessment and Plan: - hypoglycemia protocol - POC blood glucose ACHS - home medication: NovoLog, Lantus - correct regimen ordered: Lantus 45 units, moderate sliding scale with meals -Continue home regimen upon discharge with endo and PCP f/u. Plan Discharge home today. No changes to meds. F/u with PCP for repeat labs and CT interpretation. DS: Summary Hospital Course Reason for hospitalization: Dizziness, hyperkalemia Hospital Course: ED: 80-year-old male with past medical history of AAA, anxiety, DVT, PE, DM 2, anemia, HTN, CKD presents to the ED on 07/17/2025 with complaints of feeling dizzy. Patient states he got up at about 3:00 a.m. to go to the bathroom and felt very dizzy when he stood up. Denies falling but states he had to call for his to bring her walker so the patient did not fall. Patient states he gets dizzy anytime he stands up. Patient states he did have imaging with contrast yesterday but does not know the reason or what exactly was scanned. Denies chest pain, shortness a breath, weakness, vision changes. Initial vital signs 114/57, HR 80, respirations 20, afebrile and 100% on room air. Lab significant for WBC 21.4, hemoglobin 15.2, and MPV 11, PT 15.5, APTT 40.5. Sodium 133, potassium 6.4, carbon dioxide 19, BUN 30, creatinine 1.89, GFR 34, glucose 253. Troponin 0.012 Urine with specific gravity 1.038, protein 1+, glucose 3+, trace ketones, leukocyte esterase 1+, WBC 11-20, no bacteria seen. Chest x-ray reveals prominent interstitial markings but no focal acute process EKG with sinus rhythm, borderline left axis deviation, poor R-wave progression In hospital evaluation: Pt continues to be unaware of which CT examination he underwent yesterday (likely intermittent AAA CTA for surveillance?) [facility], he believes that receiving the contrast made him dizzy. Pt's potassium was stable during admission as well as his VS, which he was not positive for orthostatic hypotension today upon my evaluation. Pt was hydrated adequately while in the ED and inpatient and reports that he is feeling back to baseline. Pt continues to deny any sx including CP and SOB. Telemetry also yielding NSR. The patient was full code during the admission. He is discharged to home today with care supported by family. Discussion held with them and they were advised to follow-up with PCP for repeat labs and CT results to which they understand and agree. All their questions and concerns were answered to satisfaction. Status at Discharge Functional status at discharge: independent ambulation Overall status at discharge: patient is back to baseline Time Spent with Patient Time attestation: Total time spent providing and/or coordinating discharge services: 45 Time spent: Greater than 30 minutes Exam Narrative: GENERAL: non-toxic appearing, in no acute distress. HEAD: Normocephalic, atraumatic. EYES: PERRLA. Conjunctivae clear. NOSE: Normal no drainage. THROAT: Pharynx clear, no exudate. NECK: Trachea midline. No adenopathy, no masses. RESPIRATORY: Airway patent, respirations nonlabored. CTA. CARDIOVASCULAR: Regular rate and rhythm, TELE 76 bpm GASTROINTESTINAL: Abdomen is soft and nontender. No organomegaly. Bowel sounds normal in all quadrants. GENITOURINARY: Defer MUSCULOSKELETAL: Moves all extremities. No gross deformities. No calf tenderness. SKIN: Warm, dry, normal color. NEURO: A&O X4. Speech clear PSYCHIATRIC: Normal interaction DS: Data Data Completed and Pending Completed studies during hospitalization: Labs, urine, CXR Labs on day of discharge: Labs from last 24 hours 07/18/25 07/18/25 07/18/25 11:50 07:48 03:43 WBC 11.3 H RBC 4.56 L Hgb 13.4 L Hct 41.7 L MCV 91.4 MCH 29.4 MCHC 32.1 RDW 14.4 Plt Count 171 MPV 11.6 H Immature Gran % (Auto) 0.4 Neut % (Auto) 74.6 H Lymph % (Auto) 13.0 L [place] % (Auto) 5.8 Eos % (Auto) 6.1 H Baso % (Auto) 0.1 L Lymph # (Auto) 1.47 [place] # (Auto) 0.7 H Eos # (Auto) 0.7 H Baso # (Auto) 0.0 Abs Immat Gran (auto) 0.05 H Absolute Neuts (auto) 8.5 H Absolute Nucleated RBC 0.000 Nucleated RBC % 0.0 ESR PT INR APTT Sodium 134 L Potassium 4.8 Chloride 107 Carbon Dioxide 20 L Anion Gap 7 BUN 37 H Creatinine 1.92 H Estim Creat Clear Calc 35 Estimated GFR 34 L Glucose 218 H POC Capillary Glucose 206 H 234 H Lactic Acid Calcium 8.2 L Magnesium C-Reactive Protein TSH (Reflex) Urine Color Urine Appearance Urine pH Ur Specific [place] Urine Protein Urine Glucose (UA) Urine Ketones Ur Blood (Man) Urine Nitrate Urine Bilirubin Urine Urobilinogen Leukocyte Esterase Rfl Urine RBC Urine WBC Ur Squamous Epith Cells Urine Bacteria Urine Casts 07/17/25 07/17/25 07/17/25 20:48 20:18 16:33 WBC 13.5 H RBC 4.73 Hgb 13.8 L Hct 42.3 MCV 89.4 MCH 29.2 MCHC 32.6 RDW 14.2 Plt Count 177 MPV 10.5 H Immature Gran % (Auto) 0.4 Neut % (Auto) 78.1 H Lymph % (Auto) 12.0 L [place] % (Auto) 4.7 Eos % (Auto) 4.7 H Baso % (Auto) 0.1 L Lymph # (Auto) 1.62 [place] # (Auto) 0.6 Eos # (Auto) 0.6 H Baso # (Auto) 0.0 Abs Immat Gran (auto) 0.06 H Absolute Neuts (auto) 10.6 H Absolute Nucleated RBC 0.000 Nucleated RBC % 0.0 ESR 10 PT INR APTT Sodium 133 L Potassium 4.9 Chloride 105 Carbon Dioxide 22 Anion Gap 6 BUN 34 H Creatinine 1.89 H Estim Creat Clear Calc 35 Estimated GFR 34 L Glucose 265 H POC Capillary Glucose 270 H 222 H Lactic Acid Calcium 8.2 L Magnesium 1.8 C-Reactive Protein TSH (Reflex) 2.610 Urine Color Urine Appearance Urine pH Ur Specific [place] Urine Protein Urine Glucose (UA) Urine Ketones Ur Blood (Man) Urine Nitrate Urine Bilirubin Urine Urobilinogen Leukocyte Esterase Rfl Urine RBC Urine WBC Ur Squamous Epith Cells Urine Bacteria Urine Casts 07/17/25 07/17/25 07/17/25 14:58 14:24 14:03 WBC RBC Hgb Hct MCV MCH MCHC RDW Plt Count MPV Immature Gran % (Auto) Neut % (Auto) Lymph % (Auto) [place] % (Auto) Eos % (Auto) Baso % (Auto) Lymph # (Auto) [place] # (Auto) Eos # (Auto) Baso # (Auto) Abs Immat Gran (auto) Absolute Neuts (auto) Absolute Nucleated RBC Nucleated RBC % ESR PT INR APTT Sodium 135 L Potassium 5.0 Chloride 106 Carbon Dioxide 20 L Anion Gap 9 BUN 29 H Creatinine 1.83 H Estim Creat Clear Calc 36 Estimated GFR 36 L Glucose 226 H POC Capillary Glucose 314 H Lactic Acid Calcium 8.3 L Magnesium C-Reactive Protein TSH (Reflex) Urine Color Yellow Urine Appearance Cloudy H Urine pH 5.5 Ur Specific [place] 1.038 H Urine Protein 1+ H Urine Glucose (UA) 3+ H Urine Ketones Trace H Ur Blood (Man) Negative Urine Nitrate Negative Urine Bilirubin Negative Urine Urobilinogen 0.2 Leukocyte Esterase Rfl 1+ H Urine RBC 0-2 Urine WBC 11-20 H Ur Squamous Epith Cells None seen Urine Bacteria None seen Urine Casts 3-5 07/17/25 07/17/25 13:13 13:01 WBC RBC Hgb Hct MCV MCH MCHC RDW Plt Count MPV Immature Gran % (Auto) Neut % (Auto) Lymph % (Auto) [place] % (Auto) Eos % (Auto) Baso % (Auto) Lymph # (Auto) [place] # (Auto) Eos # (Auto) Baso # (Auto) Abs Immat Gran (auto) Absolute Neuts (auto) Absolute Nucleated RBC Nucleated RBC % ESR PT 14.7 INR 1.2 APTT 23.8 Sodium Potassium Chloride Carbon Dioxide Anion Gap BUN Creatinine Estim Creat Clear Calc Estimated GFR Glucose POC Capillary Glucose 259 H Lactic Acid 1.7 Calcium Magnesium C-Reactive Protein 3.2 H TSH (Reflex) Urine Color Urine Appearance Urine pH Ur Specific [place] Urine Protein Urine Glucose (UA) Urine Ketones Ur Blood (Man) Urine Nitrate Urine Bilirubin Urine Urobilinogen Leukocyte Esterase Rfl Urine RBC Urine WBC Ur Squamous Epith Cells Urine Bacteria Urine Casts Discharge Plan Discharge Attending physician on discharge: Andrae Cordoba Consulting providers: Bhargavi Mcnulty Discharging Clinician: Bhargavi Mcnulty Anticipated Discharge Date/Time: 07/18/25 14:00 Patient Disposition: Home Activity: as tolerated Diet: heart healthy and diabetic Discharge Instructions: 1. Be sure to keep hydrated, this dizziness episode could be correlated to being dehydrated. I am glad you are feeling back to your baseline. 2. Follow up with Dr. Can Ho at the [place] for your CT results and/or Dr. Mihir Preston for repeat lab work due to your high potassium labs and to keep track of your kidney status. Continue to check your blood pressure and blood sugar at home if applicable. Keep your scheduled appts with your primary care provider and any specialist that you may see. Return to the emergency department if you develop sudden shortness of breath, chest pain, a fever of greater than 101.5, or nausea, vomiting, abd pain, or diarrhea that does not go away. Follow-up with your primary care provider within 1-2 weeks, they will want to be updated on your inpatient stay in the hospital. Thank you for choosing [facility] for your healthcare needs. Patient Instructions: Dehydration (DC), Dizziness (GEN) Patient Language: [place] Stand Alone Forms: General Discharge Information Follow-up/Referrals: Mihir Preston MD [Physician, Family Practice] - 2 Weeks Discharge Medications: Continued hydrocodone-acetaminophen 5-325 mg tablet 1 - 2 tablet PO Q6H PRN (Reason: pain) Qty: 12 0RF cyanocobalamin (vitamin B-12) 5,000 mcg capsule 5,000 mcg PO DAILY ezetimibe [Zetia] 10 mg tablet 10 mg PO DAILY Qty: 90 3RF insulin glargine [Lantus U-100 Insulin] 100 unit/mL solution 50 unit SUB-Q DAILY insulin aspart U-100 [Novolog FlexPen U-100 Insulin] 100 unit/mL (3 mL) ins ulin pen See Rx Instructions SUB-Q TID Rx Instructions: 10 units with meals Ozempic 0.25 mg or 0.5 mg (2 mg/3 mL) pen injector 0.25 mg subcut WEEKLY Qty: 3 0RF Rx Instructions: for 4 weeks cyclobenzaprine 10 mg tablet 10 mg PO TID PRN (Reason: muscle spasm) Qty: 60 0RF Mounjaro 2.5 mg/0.5 mL pen injector 2.5 mg subcut WEEKLY Qty: 2 0RF Rx Instructions: for 4 weeks Eliquis 5 mg tablet 5 mg PO BID Qty: 28 0RF fluocinonide 0.05 % Cream 1 applic TOPICAL BID Rx Instructions: pt not aware of where to apply omega-3 fatty acids-vitamin E 1,000 mg Capsule 2 cap PO DAILY cholecalciferol (vitamin D3) [Vitamin D3] 50 mcg (2,000 unit) Capsule 100 mcg PO DAILY rosuvastatin 40 mg tablet 40 mg PO HS ferrous sulfate 325 mg (65 mg iron) tablet 325 mg PO DAILY hydroxyzine HCl 10 mg tablet 10 mg PO TID PRN (Reason: Anxiety) gabapentin 300 mg capsule 600 mg PO BID Date of admission: 07/17/25 12:43 Primary Care Provider: [facility]KAREN Admitting Provider: Maryanne Sherman Attending physician on admission: Maryanne Sherman Condition: Stable Quality VTE Prophylaxis VTE prophylaxis: pharmacologic ordered Hospitalist MIPS Heart Failure (Exclusion) Patient has history of Heart Transplant or Left Ventricular Assistive Device?: No IF YES, STOP HERE Heart Failure (Qualifier) Patient has current or prior documentation of LVEF less than or equal to 40%, or mod/servere depressed LVSF?: No IF NO, STOP HERE
== END 2025-07-18 14:52 | disposition home or self-care (01) ==
LOC: ANHED 12:41 → ANH2MED 14:24
PROVIDERS: Nurse Practitioner Adult Health; Admitting Provider Internal Medicine; Emergency Provider Emergency Medicine; Visit Provider Student in an Organized Health Care Education/Training Program
DX: E87.5 Hyperkalemia (principal); I95.1 Orthostatic hypotension; D72.829 Elevated white blood cell count, unspecified; R94.31 Abnormal electrocardiogram [ECG] [EKG]; N18.31 Chronic kidney disease, stage 3a; I12.9 Hypertensive chronic kidney disease with stage 1 through stage 4 chronic kidney disease, or unspecified chronic kidney disease; D53.9 Nutritional anemia, unspecified; F41.1 Generalized anxiety disorder; E11.51 Type 2 diabetes mellitus with diabetic peripheral angiopathy without gangrene; Z79.4 Long term (current) use of insulin; Z79.85 Long-term (current) use of injectable non-insulin antidiabetic drugs; Z89.421 Acquired absence of other right toe(s); Z90.49 Acquired absence of other specified parts of digestive tract; Z86.718 Personal history of other venous thrombosis and embolism; Z86.79 Personal history of other diseases of the circulatory system; Z86.711 Personal history of pulmonary embolism; Z79.01 Long term (current) use of anticoagulants; Z83.3 Family history of diabetes mellitus; Z82.49 Family history of ischemic heart disease and other diseases of the circulatory system
CPT/HCPCS: 36415; 71045; 80048; 80053; 81001; 82948; 83605; 83735; 84443; 84484; 85025; 85610; 85652; 85730; 86140; 87040; 87086; 93005; 96361; 96374; 96375; 99285; A9270; G0378; J0612; J1650; J1815; J7030

== ENCOUNTER 2025-08-18 09:45 | Emergency (ER) | payer MEDICARE, OTHER, SELFPAY ==
--- NOTE | ~2025-08-18 | XR_ITS ---
Examination: XR foot RT min 3V Clinical History: right great toe injury Comparison: None Technique: 3 views right foot Findings/impression: 1. Possible nondisplaced fracture first toe, proximal phalanx, proximal shaft. 2. Chronic depressed fracture first toe, distal phalanx, proximal base laterally. 3. No other acute abnormality identified right foot. 4. Second toe distal tuft amputation. Reviewed, dictated and finalized at location [facility]
[2025-08-18 09:50] VITALS: BP 144/79; PULSE 62; RESP 18; TEMP 36.4; O2SAT 99
[2025-08-18 10:50] VITALS: BP 146/79; PULSE 59; RESP 18; O2SAT 100
[2025-08-18] MEDS: TETANUS,DIPHTHERIA,AC PERTUSSIS ADULT (0.5 ML) BOOSTRIX IM (11:04)
[2025-08-18] MEDS: MORPHINE SULFATE (*CRX) 4 MG/ML INJ 2 MG IV PUSH (11:09)
[2025-08-18] MEDS: SODIUM CHLORIDE 0.9% IV 50 ML 100 ML (12:02)
--- NOTE | 2025-08-18 12:03 | PC.NURSE ---
Per verbal order from Dr. Gonzalez, running Cefazolin IV piggy back over 30 minutes
[2025-08-18 12:09] VITALS: BP 147/76; PULSE 58; RESP 16; O2SAT 98
--- NOTE | 2025-08-18 13:42 | ED.GENADULT ---
HPI - General Adult General Chief complaint: Wound/Laceration Stated complaint: toe lac Time Seen by Provider: 08/18/25 10:06 History of Present Illness HPI narrative: Patient is 80-year-old gentleman presents emergency department chief complaint of laceration of right great toe. Patient reports that he stubbed his toe on the carpet reports that his toe flipped backwards patient reports that he is on anticoagulant and reports that he also has history of diabetes and is concerned that he may develop an infection after the injury. Related Data Home Medications ?Medication ?Instructions ?Recorded ?Confirmed ?Last Taken ?Type ferrous sulfate 325 mg (65 mg 325 mg PO DAILY 08/22/19 07/17/25 1 Day Ago History iron) tablet ~10/13/20 hydroxyzine HCl 10 mg tablet 10 mg PO TID PRN Anxiety 08/22/19 07/17/25 01/15/22 History rosuvastatin 40 mg tablet 40 mg PO HS 08/22/19 07/17/25 01/15/22 History cyanocobalamin (vitamin B-12) 5,000 mcg PO DAILY 06/07/20 07/17/25 1 Day Ago History 5,000 mcg capsule ~10/13/20 fluocinonide 0.05 % topical cream 1 applic topical BID 09/30/20 07/17/25 Unknown History insulin glargine 100 unit/mL 50 unit subcut DAILY 11/05/20 07/17/25 01/15/22 History subcutaneous solution (Lantus U-100 Insulin) cholecalciferol (vitamin D3) 50 100 mcg PO DAILY 01/12/22 07/17/25 Unknown History mcg (2,000 unit) capsule (Vitamin D3) omega-3 fatty acids-vitamin E 2 cap PO DAILY 01/12/22 03/28/25 01/15/22 History 1,000 mg capsule gabapentin 300 mg capsule 600 mg PO BID 12/11/22 07/17/25 Unknown History insulin aspart U-100 100 unit/mL See Rx Instructions subcut TID 06/14/23 07/17/25 Unknown History (3 mL) subcutaneous pen (Novolog FlexPen U-100 Insulin aspart) Allergies Allergy/AdvReac Type Severity Reaction Status Date / Time oxycodone AdvReac Intermediate Nausea Verified 08/18/25 11:04 povidone-iodine AdvReac Intermediate Rash Verified 08/18/25 11:04 Review of Systems Review of Systems: A 10 system review of systems was completed on the patient and is negative except for what is stated in the HPI. Nursing and ancillary documentation was reviewed. [facility] Past Medical History Medical History AAA (abdominal aortic aneurysm) Colon cancer screening Diabetic neuropathy Overweight (BMI 25.0-29.9) Generalized anxiety disorder DVT (deep venous thrombosis) DM2 (diabetes mellitus, type 2) Hemoglobin A1c 03/16/2020 Chronic anemia Abscess of liver 06/2020 Anemia in chronic kidney disease Dialysis patient May 2018 temporary dialysis due to acute kidney injury following hip replacement surgery complicated by femoral artery pseudoaneurysm due to trauma to the artery from a screw with subsequent transferred to [place]. Essential hypertension PE (pulmonary thromboembolism) 05/09/2018 Type 2 diabetes mellitus with diabetic peripheral angiopathy without gangrene Surgical History Surgical History Hx laparoscopic cholecystectomy 10/14/20 Pseudoaneurysm of femoral artery following procedure Following hip surgery with concomitant abdominal aortic aneurysm with open repair by vascular surgery with concomitant placement of IVC filter 05/09/2018 S/P ERCP 06/21/2020 due to CBD stone seen on cholecystostomy tube cholangiogram as an outpatient. No stones/sludge/debri found during ERCP. S/P IVC filter Placed in 05/09/2018 due to PE IVC filter was subsequently removed due to concerns for infection. History of appendectomy Open appendectomy S/P ORIF (open reduction internal fixation) fracture Right hip with complicated course including femoral artery pseudoaneurysm, Klebsiella a cauda UTI due to urinary retention, DVT, pulmonary embolism, and open vascular repair with IVC filter placement History of tonsillectomy Amputation toe 2nd toe on the right H/O cataract extraction Bilaterally Family History Family History Mother Natural with unknown cause Father Natural with unknown cause Other Diabetes mellitus Hypertension Social History Social History Social History: The patient lives with his . He has 2 step children. He retired from the [employer]. He served in [employer]. He has not had any biological children. Lifelong nonsmoker. Does not use any alcohol or drugs. Primary care physician: Dr. Bienvenido Ku Code status: Full code Healthcare power of immigration attorney: Brenna () Smoking status: Never smoker Second hand tobacco smoke exposure: No Alcohol intake: never Substance use: never Substance use type: does not use Lack of Transportation: No Lack of Food: Never True Current Housing: I Have Housing Concerned About Future Housing: No Difficulty Paying Gas/Electric Bills: No Difficulty Paying for Meds: No Currently Unemployed: No Education: Trade/Vocational Certificate Difficulty w/ Childcare or Family Care: No Living arrangements: with family Occupation/Education: retired Additional occupation/education comments: [employer]. Gender identity (if verbalized by the patient): Male Spiritual care concerns: No Exam Narrative: GENERAL: Well-appearing, well-nourished, and in no acute distress. HEAD: Normocephalic, atraumatic. EYES: PERRLA and EOMI. ENT: Nares clear, no rhinorrhea or epistaxis. Mucous membranes moist. NECK: Supple. CHEST: Clear to auscultation. No respiratory distress. HEART: Regular rate and rhythm. No murmur heard. Normal peripheral pulses. ABDOMEN: Soft, nontender, nondistended, normal active bowel sounds. EXTREMITIES: Normal range of motion there is a laceration of the right great toe. No edema. SKIN: Warm, dry, no rash. NEURO: No focal deficits. Alert and oriented x3. PSYCH: Normal mood and affect. Course Vital Signs Vital signs: Vital Signs Temperature 36.4 C 08/18/25 09:50 Pulse Rate 62 08/18/25 09:50 Respiratory Rate 18 08/18/25 09:50 Blood Pressure 144/79 H 08/18/25 09:50 Pulse Oximetry 99 08/18/25 09:50 Temperature 36.4 C 08/18/25 09:50 Pulse Rate 58 L 08/18/25 12:09 Respiratory Rate 16 08/18/25 12:09 Blood Pressure 147/76 H 08/18/25 12:09 Pulse Oximetry 98 08/18/25 12:09 Procedures Laceration Laceration 1: Date: 08/18/25 Time: 13:42 Site: lower extremity ( right great toe) Side (If applicable): right Size (cm): 3 Description: irregular Depth: simple, single layer Local Anesthetic: lidocaine 1% Amount of anesthesia used (mL): 5 Pre-repair: wound explored and irrigated ====== Skin Level ====== Skin layer closed with: nylon Size (cm): 4-0 Number of sutures: 7 Technique: simple, interrupted ====== Subcutaneous Layer ====== ====== Muscle Layer ====== ====== Tendon Layer ====== MDM MDM Narrative Medical decision making narrative: patient's wound was cleaned and the wound was closed there is a nondisplaced fracture of the distal phalanx the patient was given 2 g of Ancef patient's tetanus status is to date patient will be discharged home to follow-up with podiatry Differential Diagnosis Differential Diagnosis: toe fracture, open fracture, laceration Discharge Plan Discharge Clinical Impression: Laceration of great toe of right foot, Nondisplaced fracture of distal phalanx of right great toe Patient Disposition: Home Condition: Stable Instructions: Antibiotic Form, Laceration (ED), Toe Fracture (ED) Patient Language: Citizen Of [place] Prescriptions: New cephalexin 500 mg capsule 500 mg PO QID 7 Days Qty: 28 0RF No Action hydrocodone-acetaminophen 5-325 mg tablet 1 - 2 tablet PO Q6H PRN (Reason: pain) Qty: 12 0RF cyanocobalamin (vitamin B-12) 5,000 mcg capsule 5,000 mcg PO DAILY ezetimibe [Zetia] 10 mg tablet 10 mg PO DAILY Qty: 90 3RF insulin glargine [Lantus U-100 Insulin] 100 unit/mL solution 50 unit SUB-Q DAILY insulin aspart U-100 [Novolog FlexPen U-100 Insulin] 100 unit/mL (3 mL) insulin pen See Rx Instructions SUB-Q TID Rx Instructions: 10 units with meals Ozempic 0.25 mg or 0.5 mg (2 mg/3 mL) pen injector 0.25 mg subcut WEEKLY Qty: 3 0RF Rx Instructions: for 4 weeks cyclobenzaprine 10 mg tablet 10 mg PO TID PRN (Reason: muscle spasm) Qty: 60 0RF Mounjaro 2.5 mg/0.5 mL pen injector 2.5 mg subcut WEEKLY Qty: 2 0RF Rx Instructions: for 4 weeks Eliquis 5 mg tablet 5 mg PO BID Qty: 28 0RF fluocinonide 0.05 % Cream 1 applic TOPICAL BID Rx Instructions: pt not aware of where to apply omega-3 fatty acids-vitamin E 1,000 mg Capsule 2 cap PO DAILY cholecalciferol (vitamin D3) [Vitamin D3] 50 mcg (2,000 unit) Capsule 100 mcg PO DAILY rosuvastatin 40 mg tablet 40 mg PO HS ferrous sulfate 325 mg (65 mg iron) tablet 325 mg PO DAILY hydroxyzine HCl 10 mg tablet 10 mg PO TID PRN (Reason: Anxiety) gabapentin 300 mg capsule 600 mg PO BID Follow-up/Referrals: Yolande Rodriguez DPM [Physician, Podiatry] [facility],KAREN [Primary Care Provider, Medical] Time of Disposition: 13:48
[2025-08-18 14:30] VITALS: BP 139/84; PULSE 65; RESP 16; O2SAT 99
== END 2025-08-18 14:46 | disposition home or self-care (01) ==
PROVIDERS: Emergency Provider Emergency Medicine
DX: S91.111A Laceration without foreign body of right great toe without damage to nail, initial encounter (principal); S92.424A Nondisplaced fracture of distal phalanx of right great toe, initial encounter for closed fracture; Z23 Encounter for immunization; E11.22 Type 2 diabetes mellitus with diabetic chronic kidney disease; I12.0 Hypertensive chronic kidney disease with stage 5 chronic kidney disease or end stage renal disease; N18.6 End stage renal disease; D63.1 Anemia in chronic kidney disease; Z99.2 Dependence on renal dialysis; E11.40 Type 2 diabetes mellitus with diabetic neuropathy, unspecified; E11.51 Type 2 diabetes mellitus with diabetic peripheral angiopathy without gangrene; I73.9 Peripheral vascular disease, unspecified; F41.1 Generalized anxiety disorder; Z86.718 Personal history of other venous thrombosis and embolism; Z86.711 Personal history of pulmonary embolism; Z90.49 Acquired absence of other specified parts of digestive tract; Z89.421 Acquired absence of other right toe(s); Z98.42 Cataract extraction status, left eye; Z98.41 Cataract extraction status, right eye; Z79.4 Long term (current) use of insulin; Z79.01 Long term (current) use of anticoagulants; Z79.85 Long-term (current) use of injectable non-insulin antidiabetic drugs; Z79.899 Other long term (current) drug therapy; W22.8XXA Striking against or struck by other objects, initial encounter
CPT/HCPCS: 12002; 73630; 90471; 90715; 96374; 96375; 99284; J0690; J2003; J2270